=== PATIENT | female | born 1940 | race Two or more races ===

== ENCOUNTER 2019-04-22 15:01 | Inpatient (IN) | payer MEDICARE, OTHER ==
[2019-04-22] VITALS (22 sets, daily range): BP systolic 58–156; BP diastolic 22–99
[~2019-04-22] VITALS: Ht 170.2 cm; Wt 88.3 kg
[~2019-04-22 15:01] MED LIST: AMITR; AMLO2.5T7; BENA10TA9; CLONIDINE PUMP; DILAUDID PUMP; METO25TA36; MINO10TA2; NOR10T; OMEP20TA44; TRIA25CA
[2019-04-22] MEDS ORDERED: SUCCINYLCHOLINE CHLORIDE 20 MG/ML 10ML VIAL IV ONE ×2 (15:50→16:00)
[2019-04-22] MEDS ORDERED: ETOMIDATE (2MG/ML) 20ML VIAL IV ONE ×2 (15:50→16:00)
[2019-04-22] MEDS ORDERED: SODIUM CHLORIDE 0.9% 1,000 ML IV ONE (15:54)
[2019-04-22] MEDS ORDERED: MIDAZOLAM DRIP 50 mg/50mL 50 ML IV ONE (15:55)
[2019-04-22] MEDS ORDERED: AMIODARONE HCL 900 MG in DEXTROSE 500 ML IV SCH (15:59)
[2019-04-22] MEDS: MIDAZOLAM DRIP 50 mg/50mL 50 ML IV SCH ×2 (15:59→23:02)
[2019-04-22] MEDS ORDERED: AMIODARONE HCL 150 MG in D5W 5% 100 ML IV ONE (16:00)
[2019-04-22] MEDS ORDERED: OCTREOTIDE ACETATE 100 MCG in SODIUM CHL 0.9% 50 ML IV ONE (16:00)
[2019-04-22] MEDS ORDERED: PANTOPRAZOLE 80 MG in SODIUM CHL 0.9% 60 ML IV ONE (16:00)
[2019-04-22] MEDS ORDERED: NOREPINEPHRINE 8 MG/250ML KIT 250 ML IV ONE (16:14)
[2019-04-22] MEDS ORDERED: cefTRIAXone 1GM/50ML D5W 50 ML IV ONE ×2 (16:15→16:30)
[2019-04-22] MEDS: NOREPINEPHRINE 8 MG/250ML KIT 250 ML IV SCH (16:17)
[2019-04-22 16:33] LABS: Basophils # (auto) 0.1 uL; Basophils % (auto) 0.4 % (0.0-2.0); Eosinophils # (auto) 0 uL; Hematocrit 34.2 % (36.0-46.0); Hemoglobin 10.9 g/dL (12.2-16.2); Lymphocytes # (auto) 1.3 uL; Lymphocytes % (auto) 6.5 % (10.0-50.0); Mean Corpuscular Hemoglobin 28.4 pg (28.0-32.0); Mean Corpuscular Hgb Conc. 31.8 g/dL (32.0-36.0); Mean Corpuscular Volume 89.5 fL (80.0-100.0); Monocytes # (auto) 0.8 uL; Monocytes % (auto) 4.3 % (0.0-12.0); Neutrophils % (auto) 88.8 % (37.0-80.0); Platelet Count (auto) 382 10^3/uL (140-450); Red Blood Cells 3.82 10^6/uL (4.0-5.20); Red Cell Distribution Width 16.3 % (11.8-14.3); White Blood Cell 19.1 10^3/uL (4.4-10.8)
[2019-04-22 16:51] LABS: Albumin 1.8 g/dL (3.4-5.0); Calcium 8.6 mg/dL (8.5-10.1); Magnesium 1.7 mg/dL (1.6-2.6); Potassium 4.3 mmol/L (3.5-5.1)
[2019-04-22 16:53] LABS: INR 1.29 (0.9-1.15)
[2019-04-22 16:56] LABS: BUN/Creatinine Ratio 25.7; Bilirubin, Total 0.6 mg/dL (0.2-1.0)
[2019-04-22 17:55] LABS: Lactic Acid w/Reflex 2.1 mmol/L (0.4-2.0)
[2019-04-22] MEDS: OCTREOTIDE ACETATE 500 MCG in SODIUM CHL 0.9% 99 ML IV SCH (18:08)
--- NOTE | 2019-04-22 19:24 | NUR ---
RT Transport Note: PT TRANSPORTED TO [facility]IA [facility] WITHOUT INCIDENT, WITH RNS KAVYA AND PETE. RNS BO AND EYAD AT BEDSIDE TO RECEIVE PT. PLACED PT BACK ON VENT ON PREVIOUS ORDERED SETTINGS, AC14,500+5, 50% FIO2. RT NAME AND PAGER ASSIGNMENT WRITTEN ON PTS ROOM BOARD. WILL CONTINUE TO MONITOR. Addendum: 04/22/19 at 2024 by Nicolle Velazquez RT INCORRECT RN NAME ONE OF THE RNS NAME IS NOT BO. PLEASE DISREGARD THIS ERROR. CORRECT NAME FOR THIS RN IS MIKIE.
--- NOTE | 2019-04-22 19:35 | NUR ---
Admit to [facility] admitted to [facility] via gurney on school bus monitor, and portable 02. Patient transfered to bed, connected to unit monitoring and oxygen, and weighed by bedscale. Patient oriented to Gilbert Rose RN primary RN, unit, room, bed, and unit policies regarding patient care and visiting hours.
[2019-04-22 19:47] LABS: Urine Bacteria MANY /hpf (None Seen); Urine Blood Negative /uL (Negative); Urine Mucus FEW (None Seen); Urine Specific Gravity 1.017 (1.001-1.035); Urine WBC 37 /hpf (0 - 5)
--- NOTE | 2019-04-22 20:00 | NUR ---
NGT UNABLE TO VERIFY PLACEMENT. INSERTED OGT TO 80CM. WAS ABLE TO AUSCULTATE AND ASPIRATE GI CONTENTS. OGT WAS HOOKED UP TO LIS AND DRAINED 1000ML OF COFFEE GROUNDS GI CONTENTS
--- NOTE | 2019-04-22 20:14 | NUR ---
Respiratory note: AT BEDSIDE FOR ROUTINE VENT CHECK. AT 1906 PT WAS TITRATED TO 50%. AT THIS TIME PT WAS TITRATED TO 40% RN EYAD AND MIKIE AT BEDSIDE AND MADE AWARE OF CHANGE. NO OTHER CHANGES MADE AT THIS TIME.
--- NOTE | 2019-04-22 20:20 | NUR ---
WOUND DOCUMENTATION MULTIPLE WOUNDS FOUND ASSESSMENT. PHOTOS TAKEN WITH WOUND CARE PHOTO. PLACED WOUND CARE CONSULT. BARRIER CREAM AND OPTIFOAM DRESSINGS APPLIES TO PRESSURE AREAS. SCDS APPLIED.
[2019-04-22] MEDS: D5W/SOD CHL 0.45% 1,000 ML IV SCH (22:00)
--- NOTE | 2019-04-22 22:00 | NUR ---
PATIENT TRANSPORTED TO ICU FROM [facility] TRANSPORTED to ICU via gurney on personnel monitor, intubated and being bagged by Respiratory Therapist. Patient transfered to bed, connected to mechanical ventilator by therapist, FLAVIA at bedside. Patient connected to ICU monitoring, weighed by gem, oriented to Gilbert Rose RN primary RN, unit, ventilator and sedation.
[2019-04-22] MEDS: MEROPENEM 1GM IVPB 100 ML IV SCH (23:01)
[2019-04-22] MEDS: FAMOTIDINE (10MG/ML) 2ML VL IV SCH (23:02)
[2019-04-23] VITALS (93 sets, daily range): BP systolic 97–153; BP diastolic 47–101
[2019-04-23] MEDS: OCTREOTIDE ACETATE 500 MCG in SODIUM CHL 0.9% 99 ML IV SCH ×2 (02:10→09:49)
--- NOTE | 2019-04-23 03:00 | NUR ---
FULL BATH GIVEN COMPLETE BED BATH AND FULL LINENS CHANGED. SKIN REASSESSED. BARRIER CREAM APPLIED TO ABDOMINAL FOLDS AND UNDER BREASTS. PATIENT TOLERATED WELL. VITAL SIGNS STABLE.
[2019-04-23 04:34] LABS: Basophils # (auto) 0.1 uL; Basophils % (auto) 0.4 % (0.0-2.0); Eosinophils # (auto) 0 uL; Hematocrit 30.7 % (36.0-46.0); Hemoglobin 9.8 g/dL (12.2-16.2); Lymphocytes # (auto) 3.2 uL; Lymphocytes % (auto) 20.9 % (10.0-50.0); Mean Corpuscular Hemoglobin 28.5 pg (28.0-32.0); Mean Corpuscular Volume 89.1 fL (80.0-100.0); Monocytes # (auto) 0.9 uL; Monocytes % (auto) 5.7 % (0.0-12.0); Neutrophils # (auto) 11.1 uL; Nucleated Red Blood Cells % 0.1 %; Platelet Count (auto) 358 10^3/uL (140-450); Red Blood Cells 3.45 10^6/uL (4.0-5.20); Red Cell Distribution Width 16.3 % (11.8-14.3); White Blood Cell 15.3 10^3/uL (4.4-10.8)
[2019-04-23 04:53] LABS: Calcium 8.2 mg/dL (8.5-10.1)
[2019-04-23 04:55] LABS: BUN/Creatinine Ratio 23.7
[2019-04-23] MEDS: MEROPENEM 1GM IVPB 100 ML IV SCH ×3 (06:21→21:54)
[2019-04-23] MEDS ORDERED: FURO40TA4 PO (06:25)
[2019-04-23] MEDS ORDERED: BENA40TA83 PO (06:29)
[2019-04-23] MEDS ORDERED: CLOP75TA28 PO (06:29)
[2019-04-23] MEDS ORDERED: DIGO0.1262 PO (06:30)
[2019-04-23] MEDS: MIDAZOLAM DRIP 50 mg/50mL 50 ML IV SCH (06:43)
--- NOTE | 2019-04-23 07:22 | NUR ---
END OF SHIFT GAVE REPORT OF FULL CODE ICU PATIENT TO DAY SHIFT RN. ALL FALL AND SAFETY PRECAUTIONS IN PLACE. BED SET TO LOWEST POSITION.
--- NOTE | 2019-04-23 07:30 | NUR ---
ASSESS- PT. LYING IN BED ON VENT SIZE # 8.0 ET, 23 AT THE LIP, AC-14, TV-500, PEEP-5, FIO2-35%. PT. HAS GAG/COUGH REFLEX. LUNGS CLEAR AMANDA. INSPIRATORY AND EXPIRATORY, DIMINISHED BASES AMANDA. ON VERSED GTT. AT 6MG./HR. RESPONDS TO PAINFUL/TACTILE STIMULI. PUPILS 4 AND BRISK AMANDA. ABD. SOFT, LG. BOWEL SOUNDS ALL FOUR QUADRANTS. OGT TO LIS WITH BLACK DRAINAGE. F/C TO GRAVITY WITH CLOUDY DK. YELLOW URINE. RADIAL PULSES WEAK, PALPABLE AMANDA. DORSALIS PEDAL PULSES WEAK, PALPABLE AMANDA. HANDS AND FT. COOL TO TOUCH ALL EXT. WITH CAPILLARY REFILL > 3 SEC. ARMS SWOLLEN AMANDA. LT. GREATER THAN RT. ARM. 2 PLUS EDEMA LE AMANDA. AMIODARONE GTT. AT 0.5 MG./MIN. PT. IS IN A-FIB, HR 110'S-130'S WITH PVC'S. SBP ONE TEENS TO 120'S, OFF LEVOPHED GTT. MEDIAL BACK WITH DTI WITH OPTIFOAM DSG. D/I., MEDIAL BACK WITH DTI, OPEN WITH OPTIFOAM DSG. D/I. SACRUM WITH DTI WITH OPTIFOAM DSG. D/I. LT. POSTERIOR THIGH WITH SKIN TEAR WITH OPTIFOAM DSG. D/I. RT. CALF WITH DTI. LT. CALF WITH PRESSURE ULCER, OPEN TO AIR. RT. ANKLE WITH OPEN ULCER WITH OPTIFOAM DSG. D/I. RT. HEEL WITH OPEN ULCER WITH OPTIFOAM DSG. D/I. RT. GREAT TOE WITH BRUISE, OPEN TO AIR.
[2019-04-23] MEDS: AMIODARONE HCL 900 MG in DEXTROSE 500 ML IV SCH ×2 (08:00→09:50)
--- NOTE | 2019-04-23 08:33 | NUR ---
Respiratory note: LM FOR DR Shalini SHORE TO RETURN CALL FOR READ BACK OF CRITICAL ABG VALUES. RN MADE AWRE.
[2019-04-23] MEDS: D5W/SOD CHL 0.45% 1,000 ML IV SCH ×2 (08:48→12:00)
--- NOTE | 2019-04-23 09:30 | NUR ---
Family updated on pt status Family of [facility] updated on patient's status and condition. All questions and concerns addressed. SON verbalized understanding. VISITING AT THE BS.
[2019-04-23] MEDS: NOREPINEPHRINE 8 MG/250ML KIT 250 ML IV SCH (09:44)
--- NOTE | 2019-04-23 09:45 | NUR ---
Respiratory note: CALLED SECOND TIME AND LM FOR DR Shalini SHORE TO RETURN MY CALL REGARDING ABG RESULTS. RN MADE AWARE.
[2019-04-23] MEDS: FAMOTIDINE (10MG/ML) 2ML VL IV SCH ×2 (09:48→21:54)
[2019-04-23] MEDS ORDERED: LORA-622 PO (10:58)
[2019-04-23] MEDS ORDERED: PANT40TA2 PO (10:58)
[2019-04-23] MEDS ORDERED: APIX2.5T PO (10:58)
[2019-04-23] MEDS ORDERED: DONE10TA40 PO (10:58)
[2019-04-23] MEDS ORDERED: METO-159 PO (10:58)
[2019-04-23] MEDS ORDERED: FERR-20 PO (10:58)
[2019-04-23] MEDS ORDERED: CLON0.1T PO (10:58)
[2019-04-23] MEDS ORDERED: GABA300C10 PO (10:58)
[2019-04-23] MEDS ORDERED: POTA10TA51 PO (10:58)
--- NOTE | 2019-04-23 11:00 | NUR ---
SBP 100'S TO 120'S. PT. REMAINS OFF LEVOPHED GTT. A-FIB WITH HR 100'S TO 130'S WITH PVC'S AND COUPLETS.
--- NOTE | 2019-04-23 11:10 | NUR ---
Respiratory note: CALLED DR Tammy SHORE ON CELL PHONE. ORDER RECEIVED TO CPAP PT. RN MADE AWARE.
[2019-04-23] MEDS: PANTOPRAZOLE 80 MG in SODIUM CHL 0.9% 60 ML IV SCH ×2 (11:28→16:08)
--- NOTE | 2019-04-23 12:05 | NUR ---
Nutrition Assessment/consult Notes please see attached link for complete assessment Est. Needs ABW [id number] kcal (23-25 kcal/kgBW), 79-86 gms pro (1.0-1.1 gms/kgBW). Will continue to monitor pertinent labs and reassess nutrient need prn Addendum: 04/23/19 at [address] Amended: Links added.
--- NOTE | 2019-04-23 12:50 | NUR ---
VERSED GTT. TITRATED OFF FOR CPAP TRIAL TODAY PER DR. Tammy SHORE.
--- NOTE | 2019-04-23 14:30 | NUR ---
MANAGER TRANSITION AT FOR EVALUATION.
--- NOTE | 2019-04-23 15:20 | NUR ---
PT. REMAINS OFF SEDATION. PT. IS LETHARGIC, RESPONDS TO PAINFUL/TACTILE STIMULI ONLY AT THIS TIME. EYES REMAIN CLOSED. DOES NOT FOLLOW ANY COMMANDS. UNABLE TO DO CPAP AT THIS TIME.
--- NOTE | 2019-04-23 15:58 | NUR ---
WOUND CARE NOTE: Wound care consult received from nursing. Patient is a 78yo female admitted for respiratory failure, sepsis and afib with RVR. Patient with a history of afib, CHF, HTN, and pacemaker. Patient is currently intubated and sedated. Patient with no signs or symptoms of pain. Last Yasir score is 11. Patient seen with bedside RNPatsy. Patient was previously on hospice service prior to this admission. Patient noted with multiple pressure injuries on admission. Patient with a DTI to upper back, unstageable pressure injuries to mid back, left sacrum and right heel, stage 2 (intact blister) to left posterior calf and stage 1 to right ankle. See assessment for measurements. RECOMMENDATIONS: Dietary consult; Turn q2hrs; Nursing to cleanse wounds to upper back, mid back, and left sacrum with wound cleanser or normal saline, pat dry, apply THERAHONEY and cover with OPTIFOAM GENTLE dressings, change every other day and PRN; Nursing to cleanse right heel wound, left calf wound and right ankle wound with wound cleanser, pat dry, may leave open to air or cover with OPTIFOAM GENTLE, change every three days and PRN; wound care team to follow. Addendum: 04/23/19 at 1620 by CHANTELLE HESS RN Amended: Links added.
--- NOTE | 2019-04-23 16:40 | NUR ---
VISITING AT THE BS.
--- NOTE | 2019-04-23 16:57 | NUR ---
DR. Tammy SHORE Provider/Hospitalist at bedside. GAVE UPDATE ON PT. NEW ORDERS RECEIVED.
--- NOTE | 2019-04-23 17:50 | NUR ---
TECH AT THE BS FOR US LT. ARM AND US RT. KNEE AREA.
--- NOTE | 2019-04-23 19:35 | NUR ---
OPEN SHIFT RECEIVED REPORT OF FULL CODE ICU PATIENT FROM DAY SHIFT RN. PATIENT INTUBATED BUT NOT SEDATED AT THIS TIME. NOTICEABLE FACIAL GRIMACE AND WITHDRAW TO PAIN WITH HEART RATE IN THE 140'S. PLAN TO ADMINISTER DEMEROL IVP AND REPOSITION FOR COMFORT. STARTED PATIENT ON VERSED SEDATION 1MG/HR FOR COMFORT. FOR GTTS'S AND THEIR TITRATIONS SEE IV SPREAD SHEET. SALAS CATHETER DRAINING MILKY YELLOW URINE TO GRAVITY, FREE OF KINKS AND HUNG BELOW BLADDER. SCD'S ON PATIENT. OGT TO LIS DRAINING COFFEE GROUNDS. AUSCULTATED AND ASPIRATED OGT FOR CORRECT PLACEMENT. MULTIPLE WOUNDS ON PATIENT WITH DRESSING CLEAN DRY AND INTACT. FOR MORE INFORMATION SEE PHYSICAL ASSESSMENT. BED LOCKED AND SET TO LOWEST POSITION WITH HOB>30. ALL FALL AND SAFETY PRECAUTIONS IN PLACE.
--- NOTE | 2019-04-23 19:36 | NUR ---
pulmonary consult called [id number]
[2019-04-23] MEDS: MEPERIDINE HCL (25 MG/ML) 1ML VIAL IV PRN (19:37)
--- NOTE | 2019-04-23 19:37 | NUR ---
GI CONSULT CALL [phone]
--- NOTE | 2019-04-23 19:37 | NUR ---
NEPHRO CONSULT CALLED [id number]
--- NOTE | 2019-04-23 20:20 | NUR ---
Yana SHORE AT BEDSIDE UPDATED ON PATIENT STATUS. NEW ORDER OF MONITORING CVP AND ONE DOSE OF 5% ALBUMIN 500ML.
[2019-04-23] MEDS ORDERED: ALBUMIN 5% 250 ML IV ONE ×4 (20:30→21:15)
--- NOTE | 2019-04-23 20:59 | NUR ---
LUBA SHORE REGARDING ELEVATED HR. INFORMED ABOUT UNCONTROLLED HEART RATE, URINE OUTPUT AND NEPHROLOGY SUGGESTIONS. RECEIVED ORDER FOR 5% ALBUMIN 500ML AND IVP 0.25MCG DIGOXIN ONCE. TORB.
--- NOTE | 2019-04-23 21:13 | NUR ---
LUBA SHORE MD WANTED CALL BACK AFTER ALBUMIN AND CVP MONITORING. LEFT VOICE MAIL WITH ANSWERING SERVICE. AWAITING CALL BACK.
[2019-04-23] MEDS ORDERED: DIGOXIN (250MCG/ML) 2 ML AMPULE IV ONE (21:15)
--- NOTE | 2019-04-23 22:50 | NUR ---
RECEIVED CALL BACK FROM Suzie SHORE UPDATED ON PATIENT STATUS. NO NEW ORDERS RECEIVED.
[2019-04-24] VITALS (98 sets, daily range): BP systolic 109–170; BP diastolic 60–110
--- NOTE | 2019-04-24 | NUR ---
FULL BATH GIVEN SPECIALTY BED PLACED COMPLETE BED BATH AND FULL LINENS CHANGED. SKIN REASSESSED. BARRIER CREAM APPLIED TO ABDOMINAL FOLDS AND UNDER BREASTS. PATIENT PLACED ON HILL-ROM SPECIALTY BED. PATIENT TOLERATED WELL. VITAL SIGNS STABLE.
[2019-04-24] MEDS: OCTREOTIDE ACETATE 500 MCG in SODIUM CHL 0.9% 99 ML IV SCH (00:40)
--- NOTE | 2019-04-24 01:00 | NUR ---
REPOSITIONED TO BACK. NO INCONTINENCE. CALL PLACED TO DR ECKERT. HIS RETURN CALL : GAVE ME PERMISSION TO USE THE PROPOFOL. RESULT WAS A DECREASE IN HR, SBP AND RR. ATRIAL FIB RATE AROUND 105-110. ALL PULSES ARE WEAK. SEVERAL TUBING CHANGES.
[2019-04-24] MEDS: MEPERIDINE HCL (25 MG/ML) 1ML VIAL IV PRN (02:08)
[2019-04-24] MEDS: MIDAZOLAM DRIP 50 mg/50mL 50 ML IV SCH ×2 (03:47→13:34)
[2019-04-24 04:50] LABS: Basophils # (auto) 0 uL; Basophils % (auto) 0.2 % (0.0-2.0); Eosinophils # (auto) 0 uL; Eosinophils % (auto) 0.1 % (0.0-7.0); Monocytes # (auto) 0.8 uL; Neutrophils # (auto) 12.2 uL; Red Cell Distribution Width 15.9 % (11.8-14.3)
[2019-04-24 04:54] LABS: Hematocrit 23.9 % (36.0-46.0); Hemoglobin 7.8 g/dL (12.2-16.2); Lymphocytes # (auto) 1.6 uL; Mean Corpuscular Hemoglobin 29.2 pg (28.0-32.0); Mean Corpuscular Hgb Conc. 32.8 g/dL (32.0-36.0); Monocytes % (auto) 5.4 % (0.0-12.0); Neutrophils % (auto) 83.3 % (37.0-80.0); Platelet Count (auto) 261 10^3/uL (140-450); Red Blood Cells 2.69 10^6/uL (4.0-5.20); White Blood Cell 14.6 10^3/uL (4.4-10.8)
--- NOTE | 2019-04-24 04:55 | NUR ---
PLACED PAGE FOR MD Shalini SHORE LEFT MESSAGE WITH KAYLEE AT EXCHANGE. REGARDING HTN.
[2019-04-24 05:08] LABS: BUN/Creatinine Ratio 23.9; Potassium 3.5 mmol/L (3.5-5.1)
[2019-04-24] MEDS: PANTOPRAZOLE 80 MG in SODIUM CHL 0.9% 60 ML IV SCH (05:20)
--- NOTE | 2019-04-24 05:30 | NUR ---
FAMILY CALLED SON ALLISON CALLED FOR AN UPDATE. AFTER RECEIVING CORRECT PASSWORD UPDATED SON ABOUT PATIENT STATUS.
[2019-04-24] MEDS: MEROPENEM 1GM IVPB 100 ML IV SCH ×3 (06:00→21:04)
--- NOTE | 2019-04-24 07:00 | NUR ---
END OF SHIFT GAVE REPORT OF FULL CODE ICU PATIENT TO DAY SHIFT RN. ALL FALL AND SAFETY PRECAUTIONS IN PLACE. BED SET TO LOWEST POSITION. ALL VITALS STABLE.
--- NOTE | 2019-04-24 07:30 | NUR ---
ASSESS- PT. LYING IN BED ON VENT SIZE # 8.0 ET, 23 AT THE LIP, AC-14, TV-500, PEEP-5, FIO2-30%. LUNGS CLEAR AMANDA. INSPIRATORY AND EXPIRATORY, DIMINISHED BASES AMANDA. PT. HAS GAG/COUGH REFLEX. RESPONDS TO PAINFUL/TACTILE STIMULI. VERSED GTT. AT 6MG./HR. DOES NOT FOLLOW ANY COMMANDS. SEEN PT. MOVE RT. HAND SOME. OGT IN PLACE TO LIS WITH BROWN DRAINAGE IN TUBING. ABD. SOFT, LG. BOWEL SOUNDS ALL FOUR QUADRANTS. F/C TO GRAVITY WITH LT. SHAW CLOUDY URINE. TLC RT. IJ INTACT WITH CVP TO DISTAL PORT, ZEROED, READING 7. AMIODARONE GTT. AT 0.5 MG./MIN. A-FIB, HR 70'S-80'S. PT. IS ON [facility] AIR BED. MEDIAL BACK WITH DTI WITH OPTIFOAM DSG. D/I., MEDIAL BACK WITH OPEN DTI WITH OPTIFOAM DSG. D/I., LT. POSTERIOR THIGH WITH SKIN TEAR WITH OPTIFOAM DSG. D/I, LT. CALF WITH OPEN WOUND WITH OPTIFOAM DSG. D/I., RT. CALF WITH DTI OPEN TO AIR, RT. HEEL WITH OPEN ULCER WITH OPTIFOAM DSG. D/I., RT. ANKLE WITH OPEN ULCER WITH OPTIFOAM DSG. D/I.
--- NOTE | 2019-04-24 09:35 | NUR ---
DR. COYLE Provider/Hospitalist at bedside. GAVE UPDATE ON PT. NEW ORDERS RECEIVED.
--- NOTE | 2019-04-24 10:00 | NUR ---
DR. ECKERT Provider/Hospitalist at bedside. GAVE UPDATE ON PT. NEW ORDERS RECEIVED.
[2019-04-24] MEDS: NOREPINEPHRINE 8 MG/250ML KIT 250 ML IV SCH (10:16)
--- NOTE | 2019-04-24 10:30 | NUR ---
Family updated on pt status Family of KE [facility] updated on patient's status and condition. All questions and concerns addressed. verbalized understanding. VISITING AT THE BS.
--- NOTE | 2019-04-24 11:15 | NUR ---
DR. Tammy SHORE Provider/Hospitalist at bedside. GAVE UPDATE ON PT. SPOKE WITH PT'S. AT THE BS.
--- NOTE | 2019-04-24 11:20 | NUR ---
VENT CHANGES MADE AT THIS TIME PER DR ECKERT. PT IS NOW ON AC RR 12, VT400, PEEP5, 30% FIO2. PT TOLERATING CHANGE WELL. KATI AKBAR.
--- NOTE | 2019-04-24 12:40 | NUR ---
MICROBIOLOGY CALLED AND PT. HAS VRE IN THE URINE FROM CULTURE. PLACED PT. ON CONTACT ISOLATION. INFORMED AT THE BS. WILL CALL DR. SHORE AND INFORM HIM.
--- NOTE | 2019-04-24 13:07 | NUR ---
Called/paged Dr. QUAN called re: . SPOKE WITH DR. SHORE ON HIS CELL PHONE. GAVE SENSITIVITY REPORT. NEW ORDER RECEIVED FOR DAPTOMYCIN PER PHARMACY PROTOCOL. Continue care.
[2019-04-24] MEDS: D5W/SOD CHL 0.45% 1,000 ML IV SCH (13:34)
[2019-04-24] MEDS: AMIODARONE HCL 900 MG in DEXTROSE 500 ML IV SCH (14:21)
--- NOTE | 2019-04-24 14:30 | NUR ---
FAMILY VISITING AT THE .
--- NOTE | 2019-04-24 16:30 | NUR ---
PT. RESTING ON VENT WITH EYES CLOSED, SEDATED. FAMILY HAS BEEN VISITING AT THE BS. NO SIGNS OF DISTRESS OR DISCOMFORT.
[2019-04-24] MEDS: DAPTOmycin 300 MG in SODIUM CHL 0.9% 50 ML IV SCH (16:47)
--- NOTE | 2019-04-24 19:13 | NUR ---
DR. Yana SHORE CALLED. GAVE UPDATE ON PT. NEW ORDERS RECEIVED.
[2019-04-24] MEDS ORDERED: TPN PER PHARMACY 0 ML IV SCH (19:15)
--- NOTE | 2019-04-24 19:30 | NUR ---
Initial Assessment Patient received laying on bed on mechanical ventilation and sedation with no s/s of distress or pain noted. HOB elevated greater than 30 degrees. ETT secured with [place], Ambu bag at bedside, oral care and suction rendered. Ventilator plugged into red outlet. PERRL intact and brisk. Positive cough/gag noted. RIJ central line intact and patent with no s/s of infiltration or phlebitis noted. Patient sedated with Versed at -3 RASS. OGT connected to LIS draining small amount of brown drainage. RN verified proper placement via auscultation with air bolus. Abd soft and large. Generalized pitting edema throughout entire body noted. F/C intact and draining to gravity. Multiple skin issues noted-wound care being performed per orders. All dressings are CDI. Neurovascular status is intact with palpable distal pulses x4 extremities, skin warm to touch, capillary refill brisk. Bed in lowest position, side rails up, bed brakes set, bed alarm set, all vitals stable, all alarms audible, in direct view of nurses station. Continue close monitoring.
[2019-04-24] MEDS ORDERED: DEXTROSE 10% 1,000 ML IV SCH (20:00)
[2019-04-24] MEDS: PANTOPRAZOLE 40 MG/10 ML VIAL INJ IV SCH (21:04)
[2019-04-25] VITALS (74 sets, daily range): BP systolic 100–178; BP diastolic 56–100
[2019-04-25] MEDS: MEPERIDINE HCL (25 MG/ML) 1ML VIAL IV PRN ×2 (00:45→12:45)
--- NOTE | 2019-04-25 01:30 | NUR ---
Ongoing Assessment Pain medication was given to patient at 0045 due to patient showing s/s of pain including increasing BP and facial grimacing. Patient appears much more comfortable post Demerol injection. Patient continues to be turned, all bony prominences and heels offloaded with pillows, skin is being kept clean and dry. HOB elevated. Neurovascular status remains intact and unchanged. Central line remains free of any s/s of infiltration or phlebitis. All vitals are stable. Continue close monitoring.
--- NOTE | 2019-04-25 03:30 | NUR ---
Hygiene partial CHG bed bath given, all linens and gowns changed. Barrier cream re-applied to skin folds and zarina-area. Patient tolerated well.
[2019-04-25] MEDS: D5W/SOD CHL 0.45% 1,000 ML IV SCH ×3 (03:42→20:00)
[2019-04-25 03:50] LABS: Basophils # (auto) 0 uL; Basophils % (auto) 0.3 % (0.0-2.0); Eosinophils # (auto) 0.1 uL; Eosinophils % (auto) 0.8 % (0.0-7.0); Hematocrit 27.4 % (36.0-46.0); Hemoglobin 8.9 g/dL (12.2-16.2); Lymphocytes # (auto) 2.3 uL; Mean Corpuscular Hgb Conc. 32.6 g/dL (32.0-36.0); Mean Corpuscular Volume 89.1 fL (80.0-100.0); Monocytes # (auto) 0.8 uL; Monocytes % (auto) 5.9 % (0.0-12.0); Neutrophils # (auto) 10.9 uL; Nucleated Red Blood Cells % 0.1 %; Platelet Count (auto) 266 10^3/uL (140-450); Red Blood Cells 3.08 10^6/uL (4.0-5.20); Red Cell Distribution Width 16.1 % (11.8-14.3); White Blood Cell 14.2 10^3/uL (4.4-10.8)
--- NOTE | 2019-04-25 04:00 | NUR ---
Report given to KATI Sadler.
[2019-04-25 04:09] LABS: Calcium 7.6 mg/dL (8.5-10.1); Potassium 3.1 mmol/L (3.5-5.1)
[2019-04-25 04:12] LABS: BUN/Creatinine Ratio 23.9
[2019-04-25 05:01] LABS: Magnesium 1.4 mg/dL (1.6-2.6)
[2019-04-25 05:05] LABS: Phosphorus 2.3 mg/dL (2.5-4.90); Pre Albumin 4.2 mg/dL (20.0-40.0)
[2019-04-25] MEDS: MEROPENEM 1GM IVPB 100 ML IV SCH ×3 (06:00→22:22)
--- NOTE | 2019-04-25 06:10 | NUR ---
Respiratory note: RECEIVED PATIENT ON V6 V200 VENT ORALLY INTUBATED WITH AN 8.0 ETT SECURED VIA MARIBELL AT THE 23CM MARKING AT THE LIP, AND MECHANICALLY VENTILATED WITH THE CHARTED SETTINGS. SPO2 98%, LUNG SOUNDS CLEAR/DIM T/O, NO SECRETIONS WHEN SUCTIONED. SKIN IS WARM/DRY TO THE TOUCH AND IS INTACT NEAR MARIBELL SITE. THERE IS AN OGT IN PLACE AND SECURED TO THE ETT, A TRIPLE LUMEN CENTRAL LINE IS PLACED IN THE RIGHT IJ, PITTING EDEMA NOTED IN BILATERAL UPPER AND LOWER EXTREMITIES. NO NEW AM CXR TO ASSESS. PATIENT IS UNRESPONSIVE TO BOTH VERBAL/TACTILE STIMULI AND IS SEDATED ON A VERSED DRIP, SHE IS RESTING COMFORTABLY AND TOLERATING VENT WELL. VENT PLUGGED INTO RED OUTLET AND ALL ALARMS ARE SET AND AUDIBLE. WILL CONTINUE TO ASSESS PATIENT WELL VENTILATOR FUNCTION.
--- NOTE | 2019-04-25 08:40 | NUR ---
AT BEDSIDE: Dr. Tammy Hong at bedside. No new orders at this time.
--- NOTE | 2019-04-25 09:00 | NUR ---
AT BEDSIDE; Dr. Luque at bedside, states that he will coordinate with the GI doctor to plan for CPAP trial.
--- NOTE | 2019-04-25 09:30 | NUR ---
AT BEDSIDE: Dr. Myers at bedside. Discussed possibility of small bowel obstruction, states to intermittently set OGT to LIS. Informed him that OGT was set to LIS upon arrival on shift with small amount of dark brown fluid draining. States he will repeat abd X-ray tomorrow. Informed Dr. Myers that Dr. Luque would like to coordinate care with him to facilitate ventilator weaning.
[2019-04-25] MEDS ORDERED: POTASSIUM PHOSPHATE 22 MEQ in SODIUM CHL 0.9% 100 ML IV ONE (10:00)
[2019-04-25] MEDS: PANTOPRAZOLE 40 MG/10 ML VIAL INJ IV SCH ×2 (10:00→21:00)
--- NOTE | 2019-04-25 10:15 | NUR ---
FAMILY; Patient's at bedside. Updated him on patient condition, informed him that patient has been stable. Discussed with him that the plan is to attempt ventilator weaning when patient is cleared by the GI physician. Informed him that the GI physician is planning to repeat an abdominal X-ray tomorrow. verbalized understanding.
[2019-04-25] MEDS: MAGNESIUM SULFATE 1GM/100ML 100 ML IV SCH ×2 (10:58→12:38)
[2019-04-25] MEDS: PROPOFOL 100 ML IV SCH (11:44)
--- NOTE | 2019-04-25 11:55 | NUR ---
Nutrition Consult and Follow-up Notes Wt.: 97.0 kg today. Pt's in isolation room, intubated, sedated, no immediate family member at bedside during rounds earlier. Pt's currently NPO, noted to start tonight on TPN @ 48 m/hr to provide 1190 kcal, 60 gms pro, 950 NPCs and 8% Fat with active Wound, Pulmonary and GI consults. Est. Needs ABW [id number] kcal (23-25 kcal/kgBW), 79-111 gms pro (1.0-1.4 gms/kgBW reassessed d/t severe hypoalbuminemia). Will continue to monitor pertinent labs and reassess nutrient need prn Labs: Gluc 123 H, Ca 7.6 L, K 3.1 L, Phos 2.63 L, Mg 1.4 L, Tpro 6.1 L, Alb 1.8 L, Prealb 4.2 L, Trig 152 H. Skin: Yasir scale 11 high risk, pt's multiple pressure area/wounds per straddle bug operator. Pls refer to latest optics test technician's notes for further details re: tx plans. GI: Pt's no bowel activity since 04/22/19 per straddle bug operator. PES: Increased nutrient needs r/t current medical condition aeb intubated sedated with order of NPO Altered nutrition related lab values r/t current/chronic medical condition aeb hyperglycemia, hyponatremia, hypokalemia, hyperchloremia, elev. BUN, Trop I, HbA1c, LFTs, hyperbilirubinemia, hypocalcemia and mod hypoalbuminemia Will continue to monitor NPO status, PN tolerance, pertinent labs, skin status and weight trends. F/u in 2 to 3 days. Additional Recommendation: 1.) If still NPO with PN support, consider gradual increase on calories and protein to meet at least 75% of est nutrient needs. 2.) Advance gradually to oral diet when medically appropriate. 3.) Refer to RD for further nutrition educ. and weight monitoring upon discharge. 4.) Continue current plan of care. Thank you for this consult.
[2019-04-25] MEDS: NOREPINEPHRINE 8 MG/250ML KIT 250 ML IV SCH (15:51)
[2019-04-25] MEDS: MIDAZOLAM DRIP 50 mg/50mL 50 ML IV SCH (15:51)
[2019-04-25] MEDS: DAPTOmycin 300 MG in SODIUM CHL 0.9% 50 ML IV SCH (17:51)
[2019-04-25] MEDS ORDERED: TPN PER PHARMACY IV NR ×9 (20:00)
[2019-04-25] MEDS: InsuLIN REG 1unit/0.01ml Soln (100units/ml) SC SCH (20:00)
[2019-04-25] MEDS ORDERED: DEXTROSE (50%) 50ML SYRG IV SCH (20:00)
[2019-04-25] MEDS: AMIODARONE HCL 900 MG in DEXTROSE 500 ML IV SCH (20:00)
[2019-04-25] MEDS: ACCU-CHEK COMFORT CURVE STRIP VI SCH (20:00)
--- NOTE | 2019-04-25 20:00 | NUR ---
ADMITTED FROM HOME WITH DARK EMESIS AND STOOLS. OFFICIAL DIAGNOSIS RESPIRATORY FAILURE, SEPSIS, GI BLEED, FAILURE TO THRIVE. UA HAS MANY BACTERIA. CONTACT ISOLATION FOR VRE IN THE URINE. ATRIAL FIB IS THE UNDERLYING RHYTHM. OCCASIONAL PACED BEATS. OFF SEDATION. MOVING ARMS AND LEGS. OPENS EYES A LITTLE. DOES NOT FOLLOW COMMAND. ORAL INTUBATION. ORAL OGT TO LIS. CLEAR ORAL SECRETIONS. SMALL AMOUNT OF CLOUDY SECRETIONS SUCTIONED FROM THE ETT. LUNGS CLEAR THROUGHOUT. ABDOMEN SOFT. NO BM. SALAS IN PLACE. CLEAR YELLOW LIQUID TO DOWN DRAIN BAG. ALL PULSES PALPABLE. RIJ TLC WITH A MAINTENANCE FLUID, AMIODARONE, AND TPN. TPN JUST STARTED TONIGHT.
--- NOTE | 2019-04-25 22:00 | NUR ---
REPOSITIONED. ATRIAL FIB. ORAL CARE. CLEAR YELLOW LIQUID TO DOWN DRAIN BAG.
--- NOTE | 2019-04-25 22:00 | NUR ---
REPOSITIONED. ORAL CARE. ETT SUCTIONED FOR WHITE SECRETIONS. LUNGS CLEAR. ATRIAL FIB WITH PACED BEATS.
--- NOTE | 2019-04-25 23:55 | NUR ---
AWAKE. MOVING ARMS AND LEGS. CREAMY SECRETIONS FROM THE ETT. CLEAR ORAL SECRETIONS. RIJ TLC SITE CLEAN AND DRY. HAS A FEW AREAS ON HER RIGHT FOREARM THAT ARE LEAKING SEROSANGUINOUS FLUID. RIGHT HEEL IS SCABBED, DRY. HEELS OFF BED. ATRIAL FIB IS THE BASE RHYTHM. OCCASIONAL PACED BEATS.
[2019-04-26] VITALS (95 sets, daily range): BP systolic 107–188; BP diastolic 37–101
--- NOTE | 2019-04-26 | NUR ---
WILL OPEN EYES. MOVES ARMS FREQUENTLY. GRIMACES TO PAINFUL STIMULI. DOES NOT FOLLOW COMMANDS.
--- NOTE | 2019-04-26 02:00 | NUR ---
VSS. NO CHANGE IN VENTILATOR SETTINGS. CONTINUES TO WAKE UP EASILY. OFTEN JUST MOVES HER ARMS. ATRIAL FIB IS THE BASELINE RHYTHM. VENTRICULAR PACING OCCASIONALLY. URINE IS CLEAR YELLOW.
--- NOTE | 2019-04-26 03:13 | NUR ---
AM LABS DONE
--- NOTE | 2019-04-26 04:00 | NUR ---
CHG BATH. COMPLETE LINEN CHANGE
[2019-04-26 04:45] LABS: Albumin 1.8 g/dL (3.4-5.0); Calcium 7.4 mg/dL (8.5-10.1); Magnesium 1.7 mg/dL (1.6-2.6)
[2019-04-26 04:47] LABS: BUN/Creatinine Ratio 24.5
[2019-04-26 04:50] LABS: Bilirubin, Total 0.5 mg/dL (0.2-1.0)
[2019-04-26] MEDS: MEROPENEM 1GM IVPB 100 ML IV SCH ×3 (05:29→21:43)
[2019-04-26] MEDS: InsuLIN REG 1unit/0.01ml Soln (100units/ml) SC SCH ×4 (05:30→18:00)
[2019-04-26] MEDS: ACCU-CHEK COMFORT CURVE STRIP VI SCH ×4 (05:30→18:10)
[2019-04-26 05:39] LABS: Phosphorus 1.9 mg/dL (2.5-4.90)
--- NOTE | 2019-04-26 06:00 | NUR ---
OOZING FROM SOME SMALL AMOUNTS OF SEROSANGUINOUS FLUID FROM A FEW SMALL OPEN SITES ON THE RIGHT FOREARM. LARGE FOAM DRESSING APPLIED TO KEEP HER FROM RUBBING HER ARM BACK AND FORTH IN THAT AREA,
--- NOTE | 2019-04-26 07:30 | NUR ---
REPORT REPORT RECEIVED FROM LIZZIE RNJOHNY. IN TO ROOM FOR BEDSIDE CHECK. OLPEZ FELTING MACHINE OPERATOR HELPER RN, AT THE BEDSIDE CHECKING ON PT PRIOR TO PT GOING TO FELTING MACHINE OPERATOR HELPER. INFORMED HER THAT PT HAS NOT YET BEEN SEEN BY INNER TUBE TUBER MACHINE OPERATOR AND NO ORDER HEART CATH. SHE WILL CONTACT DR SHOOK AND ASK HIM TO PLACE THE ORDER OR CONTACT US. Addendum: 04/26/19 at 0920 by Luna Rojas RN ERROR: WRONG PATIENT
--- NOTE | 2019-04-26 07:37 | NUR ---
LIZZIE TERRELL RN, CONTACTED PT'S SON AND VERIFIED CONSENT FOR LEFT HEART CATH. LET HIM KNOW THAT THE PROCEDURE LIKELY FOR 899. HE STATES HE IS COMING OVER RIGHT NOW. Addendum: 04/26/19 at 921 by Luna Rojas RN ERROR WRONG PATIENT
--- NOTE | 2019-04-26 08:04 | NUR ---
pt teaching pt unable to benefit from pt teaching as she is too drowsy. Addendum: 04/26/19 at 2008 by Luna Rojas RN Amended: Links added.
--- NOTE | 2019-04-26 08:04 | NUR ---
ASSESSMENT PT IN CONTACT ISOLATION FOR + VRE TO THE URINE. PT OFF SEDATION FOR POSSIBLE CPAP TRIAL TODAY. ON THE VENTILATOR WITH 8 FR ETT/22 AT THE LIP, TV 400, AC 12, 30% DFIO2 AND PEEP OF 5. LUNGS CLEAR THROUGHOUT. THICK CLEAR ORAL SECRETIONS. TELE ATRIAL FIB 96. PALPABLE PULSES TO ALL EXTREMITIES WITH SCD TO BLE. ABD SOFT WITH HYPOACTIVE BOWEL OSUNDS. OGT WITH + PLACEMENT AND THICK [place]ORD[place] FLUID DRAINING. SALAS CATHETER DRAINING CLEAR YELLOW URINE. +2 PITTING EDEMA TO BUE. PT WITH IV MEDS TO TLC TO THE RIJ, SITE BENIGN.. PT WITH MULTIPLE ABRASIONS, AND AREAS OF SKIN BREAKDOWN . PLEASE SEE WOUND CARE ASSESSMENT. TURNED FOR COMFORT TO HER RIGHT SIDE. CONTINUE TO MONITOR.
[2019-04-26 08:19] LABS: Basophils # (auto) 0 uL; Basophils % (auto) 0.3 % (0.0-2.0); Eosinophils # (auto) 0.1 uL; Eosinophils % (auto) 0.4 % (0.0-7.0); Hemoglobin 9.3 g/dL (12.2-16.2); Lymphocytes # (auto) 2.4 uL; Lymphocytes % (auto) 14.7 % (10.0-50.0); Mean Corpuscular Hemoglobin 28.8 pg (28.0-32.0); Mean Corpuscular Hgb Conc. 33.1 g/dL (32.0-36.0); Mean Corpuscular Volume 87.2 fL (80.0-100.0); Monocytes % (auto) 5.9 % (0.0-12.0); Neutrophils # (auto) 13.1 uL; Neutrophils % (auto) 78.7 % (37.0-80.0); Platelet Count (auto) 278 10^3/uL (140-450); Red Blood Cells 3.21 10^6/uL (4.0-5.20); Red Cell Distribution Width 15.5 % (11.8-14.3); White Blood Cell 16.6 10^3/uL (4.4-10.8)
[2019-04-26] MEDS ORDERED: POTASSIUM PHOSPHATE 44 MEQ in SODIUM CHL 0.9% 250 ML IV ONE (08:30)
--- NOTE | 2019-04-26 09:00 | NUR ---
PT SEEN BY DR Shalini SHORE AND UPDATED ON PT'S CURRENT CONDITION AND LABS.
--- NOTE | 2019-04-26 09:00 | NUR ---
SEDATION VACATION PT NOT ON ANY SEDATION Addendum: 04/26/19 at 1253 by Luan Rojas RN Amended: Links added.
--- NOTE | 2019-04-26 09:12 | NUR ---
RETUNED DR ECKERT'S CALL AND UIPDATED HIM ON THE PT'S CURRENT CONDITION, ABD SERIES RESULTS AND ABG RESULTS. CHECK WITH DR COYLE REGARDING ABD SERIES RESULT AND SEE IF HE IS OK TO PROCEED WITH CPAP TRIAL.
--- NOTE | 2019-04-26 09:15 | NUR ---
ADVISED DR COYLE OF ABD SERIES RESULTS AND DOES NOT WANT TO PROCEED WITH CPAP TRIAL. CALLED AND NOTIFIED DR ECKERT OF THAT.
--- NOTE | 2019-04-26 09:43 | NUR ---
assessment Patient is a 78 year old female on a vent. Patients Willis is at bedside. Per Willis prior to admission patient lived home with him and functioned with [facility] hospice assistance and the assistance of their granddaughter Marilee. Per Willis he does not want to resume with [facility]. I informed Willis I would bring his a list of hospice medicare providers once patient is stable. Per Willis patient has a wheelchair, fww, and 02 for home use. Per Willis patient has an advanced directive and he is POA. I informed Willis we would discuss patients post discharge needs once extubated and prior to discharge. Willis verbalized understanding. Addendum: 04/27/19 at 0955 by Yuki KERN Amended: Links added.
[2019-04-26] MEDS ORDERED: MAGNESIUM SULFATE 1GM/100ML 100 ML IV ONE (10:00)
[2019-04-26] MEDS ORDERED: POTASSIUM CHL 20MEQ/100ML 100 ML IV SCH (10:15)
[2019-04-26] MEDS: PROPOFOL 100 ML IV SCH ×2 (10:31→22:05)
[2019-04-26] MEDS: PANTOPRAZOLE 40 MG/10 ML VIAL INJ IV SCH ×2 (11:31→20:17)
[2019-04-26] MEDS: D5W/SOD CHL 0.45% 1,000 ML IV SCH ×2 (12:40→19:56)
--- NOTE | 2019-04-26 13:00 | NUR ---
FAMILY AT THE BEDSDIE AND UPDATED ON THE PT'S CURRENT CONDITION AND POC.
[2019-04-26] MEDS: MIDAZOLAM DRIP 50 mg/50mL 50 ML IV SCH (15:55)
--- NOTE | 2019-04-26 16:00 | NUR ---
REPOSITIONED AND REASSESSED THE PATIENT.
[2019-04-26] MEDS: NOREPINEPHRINE 8 MG/250ML KIT 250 ML IV SCH (16:15)
--- NOTE | 2019-04-26 19:30 | NUR ---
REPORT REPORT GIVEN TO JOHNY SAMUEL RN
[2019-04-26] MEDS: AMIODARONE HCL 900 MG in DEXTROSE 500 ML IV SCH (19:56)
[2019-04-26] MEDS ORDERED: TPN PER PHARMACY IV NR ×21 (20:00)
--- NOTE | 2019-04-26 20:00 | NUR ---
ADMITTED WITH RESPIRATORY FAILURE, GI BLEED, SEPSIS, FAILURE TO THRIVE, ATRIAL FIB RVR. PLACED IN CONTACT ISOLATION FOR VRE IN URINE. CANCELLED CPAP TRIAL DUE TO HER ILEUS. OPENS EYES BRIEFLY. GRIMACES OCCASIONALLY WITH ORAL CARE. MOUTH IS OPEN CONTINUOUSLY. DENTAL CARIES. CLOUDY ORAL SECRETIONS. ORAL ETT TO VENTILATOR. SMALL AMOUNT OF THICK WHITE SECRETIONS. LUNGS CLEAR. ABDOMEN ROUND AND SOFT. OBESE. MULTIPLE SKIN ISSUES. 3+ PITTING EDEMA IN ARMS AND LEGS. SALAS IN PLACE DRAINING CLEAR YELLOW LIQUID. ALL EXTREMITIES ARE WARM. ALL PULSES PALPABLE. PEDAL PULSES ARE WEAK. STARTED ON DIPRIVAN TODAY. 2ND DAY OF TPN. AMIODARONE DRIP AT 0.5 CONTINUES. ATRIAL FIB CONTROLLED RATE IN THE 80S.
[2019-04-26] MEDS: DAPTOmycin 300 MG in SODIUM CHL 0.9% 50 ML IV SCH (20:34)
--- NOTE | 2019-04-26 22:00 | NUR ---
ORAL CARE . REPOSITIONED. LUNGS CLEAR. NEUROLOGICALLY THE SAME. NO CHANGE IN PITTING EDEMA. VERY SMALL AMOUNT OF NGT CONTENTS. FLUSHED NGT. NO BM.
[2019-04-27] VITALS (74 sets, daily range): BP systolic 111–186; BP diastolic 54–119
--- NOTE | 2019-04-27 | NUR ---
REPOSITIONED. ORAL CARE. ARMS UP ON PILLOWS. HEELS OFF BED. SALAS DRAINING CLEAR YELLOW LIQUID. ATRIAL FIB CONTROLLED RATE. SBP STABLE.
--- NOTE | 2019-04-27 02:00 | NUR ---
[facility] BATH
[2019-04-27 04:31] LABS: Basophils # (auto) 0.1 uL; Basophils % (auto) 0.4 % (0.0-2.0); Eosinophils # (auto) 0.1 uL; Eosinophils % (auto) 0.6 % (0.0-7.0); Hemoglobin 8.5 g/dL (12.2-16.2); Lymphocytes # (auto) 2.7 uL; Lymphocytes % (auto) 18.6 % (10.0-50.0); Mean Corpuscular Hemoglobin 28.4 pg (28.0-32.0); Mean Corpuscular Hgb Conc. 32.8 g/dL (32.0-36.0); Mean Corpuscular Volume 86.6 fL (80.0-100.0); Monocytes # (auto) 1.1 uL; Monocytes % (auto) 7.4 % (0.0-12.0); Neutrophils # (auto) 10.6 uL; Platelet Count (auto) 260 10^3/uL (140-450); Red Cell Distribution Width 15.6 % (11.8-14.3); White Blood Cell 14.5 10^3/uL (4.4-10.8)
--- NOTE | 2019-04-27 04:45 | NUR ---
INCONTINENT OF A LARGE PASTY DARK DARK GREEN STOOL. DALLAS CARE DONE. Z GUARD APPLIED
[2019-04-27 04:52] LABS: Albumin 1.6 g/dL (3.4-5.0); Calcium 7.2 mg/dL (8.5-10.1); Magnesium 1.7 mg/dL (1.6-2.6); Potassium 3.5 mmol/L (3.5-5.1)
[2019-04-27 04:55] LABS: BUN/Creatinine Ratio 36.4; Bilirubin, Total 0.4 mg/dL (0.2-1.0); Phosphorus 2.6 mg/dL (2.5-4.90); Total Protein 4.7 g/dL (6.4-8.2)
[2019-04-27] MEDS: ACCU-CHEK COMFORT CURVE STRIP VI SCH ×4 (05:43→17:59)
[2019-04-27] MEDS: D5W/SOD CHL 0.45% 1,000 ML IV SCH (05:43)
[2019-04-27] MEDS: MEROPENEM 1GM IVPB 100 ML IV SCH ×2 (05:43→14:05)
[2019-04-27] MEDS: InsuLIN REG 1unit/0.01ml Soln (100units/ml) SC SCH ×4 (06:00→18:12)
--- NOTE | 2019-04-27 07:30 | NUR ---
REPORT REPORT RECEIVED FROM LIZZIE RNJOHNY. BEDSIDE CHECK DONE. PT ON VENTILATOR , SEDATED AND WITH VSS.
--- NOTE | 2019-04-27 08:20 | NUR ---
ASSESSMENT PT LAYING IN BED WITH EYES CLOSED, BUT OPENS EYES TO NAME. DOES NOT FOLLOW ANY COMMANDS. ON THE VENTILATOR WITH 8 FR ETT/22 AT THE LIP, TV 400, 30% FIO2 , PEEP OF 5 AND AC 12. LUNGS WITH INSPIRATORY AND EXPIRATORY RHONCHI THROUGHOUT. TELE ATRIAL FIB, CONTROLLED RATE. PALPANLE PULSES TO ALL EXTREMITIES. + 2 PITTING EDEMA TO BOTH HANDS AND + 1 PITTING EDEMA TO BOTH ARMS. ABD SOFT WITH HYPOACTIVE BOWEL SOUNDS. OG TIN PLACE WITH LIGHT GOLD BILE FLUID DRAINING. SALAS CATHETER DRAINING CLOUDY YELLOW URINE. TURNED FOR COMFORT. MULTIPLE AREAS OF SKIN BREAKDOWN. SEE WOUND CARE ASSESSMENT. TLC TO THE RIJ, SITE BENIGN. ON CONTACT ISOLATION FOR + VRE IN THE URINE.
--- NOTE | 2019-04-27 08:30 | NUR ---
PT TEACHING PT UNABLE TO BENEFIT FROM PT TEACHING AT THIS TIME SHE IS SEDATED WHILE ON THE VENTILATOR Addendum: 04/27/19 at 1945 by Luna Rojas RN Amended: Links added.
[2019-04-27] MEDS ORDERED: EPINEPHrine HCL 1 MG/10 ML SYRG ONE (10:25)
[2019-04-27] MEDS: PANTOPRAZOLE 40 MG/10 ML VIAL INJ IV SCH ×2 (10:35→21:12)
--- NOTE | 2019-04-27 11:25 | NUR ---
DR COYLE AT BEDSIDE AND EGD IN PROGRESS. VSS. Addendum: 04/27/19 at 1136 by Luna Rojas RN ERROR: WRONG TIME
--- NOTE | 2019-04-27 11:37 | NUR ---
Nutrition Follow-up Notes Wt.: 94.0 kg Pt's in isolation room, intubated, sedated with propofol @ 5.82 ml.hr providing 153 kcals from fats with no immediate family member at bedside during rounds earlier. Pt's currently NPO, on TPN @ 60 m/hr to provide 1500 kcal, 70 gms pro, 1220 NPCs. pt with adequte PN support as it meets 83-88% kcals however meets 63-88% proteins with propofol on board Est. Needs ABW [id number] kcal (23-25 kcal/kgBW), 79-111 gms pro (1.0-1.4 gms/kgBW reassessed d/t severe hypoalbuminemia). Will continue to monitor pertinent labs and reassess nutrient need prn Labs: GLU 123 H, ALB 1.6 L, CA 7.2 L. Skin: Yasir scale 14, mod risk, pt's multiple pressure area/wounds per rn neurology. Pls refer to latest regional economist's notes for further details re: tx plans. GI: Pt's no bowel activity since 04/22/19 with 50 ml gastric drainage per rn neurology. PES: Increased nutrient needs r/t current medical condition aeb intubated sedated with order of NPO Altered nutrition related lab values r/t current/chronic medical condition aeb hyperglycemia, hyponatremia, hypokalemia, hyperchloremia, elev. BUN, Trop I, HbA1c, LFTs, hyperbilirubinemia, hypocalcemia and mod hypoalbuminemia Will continue to monitor NPO status, PN tolerance, pertinent labs, skin status and weight trends. F/u in 2 to 3 days. Additional Recommendation: 1.) If still NPO with PN support, consider gradual increase on calories and protein to meet at least 75% of est nutrient needs. 2.) Advance gradually to oral diet when medically appropriate. 3.) Refer to RD for further nutrition educ. and weight monitoring upon discharge. 4.) Continue current plan of care.
--- NOTE | 2019-04-27 11:40 | NUR ---
RESP/ NOTIFIED DR ECKERT, BY PHONE, OF PT'S INCREASED CONGESTION, BOTH INSPIRATORY AND EXPIRATORY RHONCHI THROUGHOUT. HE WILL BE OVER TO ASSESS BUT WANTS ME TO STOP HER IVF UNTIL HE ARRIVES.
--- NOTE | 2019-04-27 14:04 | NUR ---
NOTIFED OF URINE CULTURE + NOT ONLY FOR VRE BUT ALSO YEAST, NOT SOLE, ENTEROCOCCUS FAECIUM. AND KLEBSIELLA PNEUMONIAE. PAGED DR SHORE
--- NOTE | 2019-04-27 15:20 | NUR ---
REPAGED DR SHORE REGARDING URINE CULTURE RESULTS.
--- NOTE | 2019-04-27 15:25 | NUR ---
MD/RESPIRATORY SPOKE WITH DR ECKERT , BY PHONE, AND UPDATED HIM ON THE PT'S CURRENT CONDITION. HE SPOKE WITH DR COYLE WHO GAVE HIS OKAY FOR THE CPAP TRIAL. TURN OFF SEDATION , AND WHEN PT AWAKE AND ABLE TO FOLLOW SIMPLE COMMANDS, START CPAP TRIAL. ORDERED WITH PRESSURE SUPPORT OF 8 AND PEEP OF 5, WITH AN ABG AFTER ONE HOUR ON CPAP.
--- NOTE | 2019-04-27 15:35 | NUR ---
Respiratory note: CPAP orders given. Patient sedation being titrated. Patient seems to be responding more. Vital signs are increasing. Placed patient on CPAP with PS 8. work of breathing and respiratory rate increased to 40 and patient seemed to be in distress. Placed patient back on full support. will communicate with NOC RT.
[2019-04-27] MEDS: MIDAZOLAM DRIP 50 mg/50mL 50 ML IV SCH (15:55)
--- NOTE | 2019-04-27 16:00 | NUR ---
DR ECKERT HERE AND MADE AWRE OF URINE CULTURE RESULTS. HE IS SPEAKING WITH THE PHARMACIST REGARDING ANTIBIOTIC COVERAGE.
[2019-04-27] MEDS: NOREPINEPHRINE 8 MG/250ML KIT 250 ML IV SCH (16:15)
[2019-04-27] MEDS: fentaNYL Drip 2500mCg/250mlNS 250 ML IV SCH (16:30)
[2019-04-27] MEDS ORDERED: fentaNYL Drip 2500mCg/250mlNS 250 ML IV ONE (16:37)
[2019-04-27] MEDS ORDERED: POTASSIUM PHOSPHATE 22 MEQ in SODIUM CHL 0.9% 100 ML IV ONE (17:15)
[2019-04-27] MEDS: DAPTOmycin 500 MG in SODIUM CHL 0.9% 50 ML IV SCH (17:30)
[2019-04-27] MEDS: MAGNESIUM SULFATE 1GM/100ML 100 ML IV SCH ×2 (17:55→18:54)
--- NOTE | 2019-04-27 18:50 | NUR ---
PT RESTING IN BED WITH EYES CLOSED. OPENS EYES TO NAME AND FOLLOWS SIMPLE COMMANDS, CURRENTLY ON 85 MCG OF FENTANYL WITH VS: 115 -27-97% AND 164/87. DR ECKERT WANTS TO CPAP THE PT WHEN HR LESS THAN 100 AND RR DECREASED. CONTINUE TO MONITOR.
--- NOTE | 2019-04-27 19:30 | NUR ---
REPORT GIVEN TO JOHNY SAMUEL RN.
[2019-04-27] MEDS ORDERED: TPN PER PHARMACY IV NR ×10 (20:00)
--- NOTE | 2019-04-27 20:00 | NUR ---
ADMITTED ON 04/22/2019 WITH RESPIRATORY FAILURE, SEPSIS, GI BLEED, FAILURE TO THRIVE, HYPOTENSION, AFIB RVR. IN CONTACT ISOLATION FOR VRE URINE. URINE CULTURE SHOWED MORE BACTERIA TODAY. NEW ANTIBIOTIC ADDED. SEDATION: REMOVED PROPOFOL AND ADDED FENTANYL WITH A MAX OF 100. AT THE CHANGE OF SHIFT HER HEART RATE WAS ATRIAL FIB RATE 114-130. SBP 150-170. RR 24-30. INCREASED THE FENTANYL TO MAX PER DR ECKERT. THE PATIENT IS VERY AWAKE. BILATERAL MITTENS ON. MOVES ARMS BUT NOT LEGS. ORAL CARE DONE. OGT TO LIS. CANNISTER IS LARGELY FULL OF BROWN LIQUID. IN THE OGT IS A GREEN LIQUID. NO BOWEL SOUNDS. SALAS IN PLACE AND IS DRAINING AN ORANGE/SHAW LIQUID. 3+ PITTING EDEMA IN ARMS AND LEGS. IV ACCESS: RIJ TLC WITH CURRENT DRESSING AND BIOPATCH. MULTIPLE WOUNDS FROM BEFORE ADMISSION HERE. ACCUCHECK Q 6. TPN AT 70CC/HR TODAY.
--- NOTE | 2019-04-27 20:36 | NUR ---
HR 114-130 ATRIAL FIB. RR 27-30. FENTANYL MAX AT [address] ECKERT. CALL PLACED TO DR RAY WHO IS SERVICE ENGINEER FOR POSSIBLE ADDITION OF ANOTHER FORM OF SEDATION.
[2019-04-27] MEDS: MEPERIDINE HCL (25 MG/ML) 1ML VIAL IV PRN (21:19)
[2019-04-27] MEDS: AMIODARONE HCL 900 MG in DEXTROSE 500 ML IV SCH (21:41)
[2019-04-27] MEDS: SODIUM CHL 0.9% IV SCH (22:00)
[2019-04-27] MEDS: CEFTAZIDIME AVIBACTAM IV SCH (22:00)
--- NOTE | 2019-04-27 22:00 | NUR ---
DR ECKERT GAVE ME PERMISSION TO ADD THE PROPOFOL.
[2019-04-28] VITALS (82 sets, daily range): BP systolic 72–181; BP diastolic 37–100
--- NOTE | 2019-04-28 | NUR ---
REPOSITIONED TO LEFT SIDE. INCONTINENT OF A SMALL AMOUNT OF DARK BROWN/GREEN STOOL. DALLAS CARE DONE. UPPER SPINE DRESSING REMOVED. CLOSED DARK DTI WOUND. CLEANED AREA AND APPLIED 2X2 FOAM DRESSING. THE MID SPINE DRESSING WAS REMOVED. EXPOSED A DARK WOUND WITH A CRATER WOUND. CLEANED WOUND WITH WOUND CLEANSER AND APPLIED A THERAHONEY STRIP AND 2X2 FOAM DRESSING. THE LOWER HIP, COCCYX, AND BUTTOCK : 3 MACERATED AREAS. WOUNDS CLEANSED. Z GUARD APPLIED WITH A FOAM DRESSING TO COVER. RIGHT HEEL DRESSING : LARGE SCABBED WOUND. PATIENT GRIMACES WHEN YOU TURN HER. PAIN IS NOTED IN HER BACK AND KNEES. LUNGS COARSE. SUCTIONED A LARGE AMOUNT OF YELLOW/CREAMY SECRETIONS. ATRIAL FIB RATE REMAINS 102-106. ABDOMEN SOFT. PAIN PUMP AREA RIGHT LATERAL ABDOMEN. SALAS DRAINING AN SHAW LIQUID. NO CHANGE IN PERIPHERAL EDEMA. HEELS OFF BED. OGT DRAINING A DARK GREEN LIQUID.
--- NOTE | 2019-04-28 02:00 | NUR ---
REPOSITIONED. ATRIAL FIB RATE 92-106. ORAL CARE. STABLE.
[2019-04-28] MEDS: MEPERIDINE HCL (25 MG/ML) 1ML VIAL IV PRN ×3 (03:30→17:12)
[2019-04-28 04:44] LABS: Albumin 1.6 g/dL (3.4-5.0); BUN/Creatinine Ratio 53.3; Calcium 7.4 mg/dL (8.5-10.1); Magnesium 2.1 mg/dL (1.6-2.6)
[2019-04-28 04:47] LABS: Bilirubin, Total 0.4 mg/dL (0.2-1.0); Total Protein 4.7 g/dL (6.4-8.2)
[2019-04-28 05:02] LABS: Phosphorus 3.2 mg/dL (2.5-4.90)
[2019-04-28] MEDS: CEFTAZIDIME AVIBACTAM IV SCH ×3 (06:00→22:59)
[2019-04-28] MEDS: SODIUM CHL 0.9% IV SCH ×3 (06:00→22:59)
[2019-04-28] MEDS: ACCU-CHEK COMFORT CURVE STRIP VI SCH ×4 (06:00→18:12)
[2019-04-28] MEDS: InsuLIN REG 1unit/0.01ml Soln (100units/ml) SC SCH ×4 (06:00→18:00)
--- NOTE | 2019-04-28 06:30 | NUR ---
SON CALLED. AFTER THE DEMEROL PAIN MEDICATION, SHE RELAXED SO MUCH. HR WENT DOWN TO THE 70S. SBP DROPPED INTO THE 80S. RR14. SUCTIONING A SMALL AMOUNT OF CREAMY YELLOW SECRETIONS. ORAL CARE DONE. REPOSITIONED. ATRIAL FIBRILLATION CONTROLLED RATE IN THE 70S.
--- NOTE | 2019-04-28 09:10 | NUR ---
MD Dr. Myers at bedside updated on patient condition with new orders received, MD to input into system. Will continue to monitor patient closely.
--- NOTE | 2019-04-28 09:15 | NUR ---
PHARMACY Called and spoke to Bing regarding Protonix IV not in patient cassette, states " Will sent up a dose."
[2019-04-28 09:22] LABS: Hematocrit 23.8 % (36.0-46.0); Hemoglobin 7.9 g/dL (12.2-16.2)
[2019-04-28] MEDS: PANTOPRAZOLE 40 MG/10 ML VIAL INJ IV SCH ×2 (09:45→23:00)
[2019-04-28 10:20] LABS: Basophils # (auto) 0 uL; Eosinophils # (auto) 0.1 uL; Hemoglobin 7.9 g/dL (12.2-16.2); Lymphocytes # (auto) 2.9 uL; Red Cell Distribution Width 16.5 % (11.8-14.3)
[2019-04-28 10:23] LABS: Basophils % (auto) 0.3 % (0.0-2.0); Eosinophils % (auto) 0.5 % (0.0-7.0); Hematocrit 24.3 % (36.0-46.0); Lymphocytes % (auto) 19.5 % (10.0-50.0); Mean Corpuscular Hemoglobin 28.9 pg (28.0-32.0); Mean Corpuscular Hgb Conc. 32.6 g/dL (32.0-36.0); Mean Corpuscular Volume 88.7 fL (80.0-100.0); Monocytes # (auto) 1.2 uL; Monocytes % (auto) 7.6 % (0.0-12.0); Neutrophils # (auto) 10.9 uL; Neutrophils % (auto) 72.1 % (37.0-80.0); Platelet Count (auto) 268 10^3/uL (140-450); Red Blood Cells 2.74 10^6/uL (4.0-5.20); White Blood Cell 15.1 10^3/uL (4.4-10.8)
--- NOTE | 2019-04-28 10:45 | NUR ---
MD Dr. Luque called at [phone] regarding AM ABG results with new orders to try and CPAP patient when fully awake. Informed patient current sedation and that patient is awake and follows some commands. This RN to input into system. Will notify RT Ortiz of new orders.
--- NOTE | 2019-04-28 10:50 | NUR ---
SEDATION Turned off Diprivan.
--- NOTE | 2019-04-28 11:20 | NUR ---
SEDATION/CPAP TRIAL Fentanyl decreased to 50mcg. RT Diana at bedside and change patient to CPAP mode, patient appears to be tolerating well sating 98%, Heart rate 99, respirations 1, blood pressure 140/88. Will continue to monitor patient closely
--- NOTE | 2019-04-28 11:20 | NUR ---
CPAP TRIAL ,PER DR. ECKERT'S T. O. TAKEN BY ANYA PARIKH., PLACED ON CPAP PS 8,PEEP 5,FIO2 30%. PT. TOLERATING WELL AT THIS TIME, WILL CONTINUE TO MONITOR RESP. STATUS FOR SIGNS OF DISTRESS.
[2019-04-28] MEDS: PROPOFOL 100 ML IV SCH (11:44)
--- NOTE | 2019-04-28 13:20 | NUR ---
SEDATION Turned off Fentanyl.
--- NOTE | 2019-04-28 13:20 | NUR ---
DR. ECKERT CONTACTED WITH ABG RESULTS. ORDERS RECEIVED TO EXTUBATE PT. IF PT. HAS A GOOD LEAK.
--- NOTE | 2019-04-28 13:40 | NUR ---
LEAK MEASURED AT 410CC, WITH AUDIBLE LEAK.
--- NOTE | 2019-04-28 13:47 | NUR ---
PT. EXTUBATED AND PLACED ON COOL AEROSOL AT 30% FI02. HR=96,RR=20,SP02=98%. NO STRIDOR PRESENT, BS. SLIGHTLY COARSE AND DIMINISHED AT THE BASES. ALSO ORDERS FOR RACEMIC EPINEPHRINE 0.5ML PRN IF PT. DEVELOPS STRIDOR.
--- NOTE | 2019-04-28 13:47 | NUR ---
RESPIRATORY RT Diana at bedside, extubated and placed on cool aerosol at 30%. Heart rate 96, Respirations 20 and O2 sats 98%. No stridor present. Call light within reach and at bedside.
[2019-04-28] MEDS ORDERED: FLUCONAZOLE 200MG/100ML 100 ML IV ONE (14:15)
--- NOTE | 2019-04-28 14:30 | NUR ---
MD Dr. Luque at bedside updated on patient condition with no new orders at this time. MD spoke to patient and patient regarding plan of care and questions/concerns answered by MD.
[2019-04-28] MEDS: MIDAZOLAM DRIP 50 mg/50mL 50 ML IV SCH (15:55)
[2019-04-28] MEDS: NOREPINEPHRINE 8 MG/250ML KIT 250 ML IV SCH (16:15)
[2019-04-28] MEDS: fentaNYL Drip 2500mCg/250mlNS 250 ML IV SCH (16:36)
[2019-04-28] MEDS: DAPTOmycin 500 MG in SODIUM CHL 0.9% 50 ML IV SCH (18:00)
[2019-04-28] MEDS ORDERED: TPN PER PHARMACY IV NR ×9 (20:00)
--- NOTE | 2019-04-28 20:49 | NUR ---
FAMILY AT BEDSIDE
[2019-04-28] MEDS: AMIODARONE HCL 900 MG in DEXTROSE 500 ML IV SCH (21:59)
--- NOTE | 2019-04-28 23:15 | NUR ---
TEMP. PT HAS ELEVATED TEMP, COOLING MEASURES ARE IN PLACE, WILL CONTINUE TO MONITOR.
[2019-04-29] VITALS (73 sets, daily range): BP systolic 87–148; BP diastolic 51–92
--- NOTE | 2019-04-29 00:04 | NUR ---
PAIN PT SHOWING SS OF PAIN. PT GRIMACING, VS ELEVATED AND PT SAYING "OW OW OW" PAIN MEDICATION ADMINISTERED PER PRESCRIPTION, WILL REASSESS PT.
--- NOTE | 2019-04-29 00:50 | NUR ---
LEOLA GARCIA HAS A TEMP WNL, WILL CONTINUE TO MONITOR
--- NOTE | 2019-04-29 01:15 | NUR ---
PAIN REASSESSMENT PT NO LONGER SHOWING SIGNS OF PAIN. VS ARE LOWER AND STABLE, PT IS NOT GRIMACING AND PT NO LONGER SAYING OW. WILL CONTINUE TO CARE FOR AND MONITOR.
[2019-04-29] MEDS: MEPERIDINE HCL (25 MG/ML) 1ML VIAL IV PRN (03:26)
[2019-04-29] MEDS: AMIODARONE HCL 900 MG in DEXTROSE 500 ML IV SCH (03:28)
--- NOTE | 2019-04-29 03:31 | NUR ---
PAIN PT SHOWING SS OF PAIN. PT GRIMICING, VS ELEVATED AND PT SAYING "OW OW OW" PAIN MEDICATION ADMINISTERED PER PRESCRIPTION, WILL REASSESS PT.
[2019-04-29 04:59] LABS: Albumin 1.7 g/dL (3.4-5.0); Calcium 7.6 mg/dL (8.5-10.1)
[2019-04-29 05:03] LABS: BUN/Creatinine Ratio 53.8; Bilirubin, Total 0.4 mg/dL (0.2-1.0); Phosphorus 3.5 mg/dL (2.5-4.90); Total Protein 5.5 g/dL (6.4-8.2)
--- NOTE | 2019-04-29 05:05 | NUR ---
HYGIENE PARTIAL BED BATH PROVIDED, PARTIAL JOE CHANGE PROVIDED. PT TOLERATED CARE. VS STABLE
[2019-04-29] MEDS: SODIUM CHL 0.9% IV SCH ×3 (06:03→22:03)
[2019-04-29] MEDS: CEFTAZIDIME AVIBACTAM IV SCH ×3 (06:03→22:03)
[2019-04-29] MEDS: ACCU-CHEK COMFORT CURVE STRIP VI SCH ×4 (06:21→17:57)
[2019-04-29] MEDS: InsuLIN REG 1unit/0.01ml Soln (100units/ml) SC SCH ×4 (06:22→18:33)
--- NOTE | 2019-04-29 09:15 | NUR ---
Dr Hong visits et examines patient - orders received. CXR and ABG obtained, IVF turned off and medication orders received.
[2019-04-29] MEDS ORDERED: FUROSEMIDE 100 MG/10ML VIAL IV ONE (09:45)
[2019-04-29] MEDS: FLUCONAZOLE 200MG/100ML 100 ML IV SCH (09:51)
[2019-04-29] MEDS: PROPOFOL 100 ML IV SCH (09:51)
[2019-04-29] MEDS: PANTOPRAZOLE 40 MG/10 ML VIAL INJ IV SCH ×2 (10:08→21:42)
--- NOTE | 2019-04-29 11:30 | NUR ---
DR COYLE VISITS - INFORMED PATIENT INVOL MOD AMT SOFT BLACK TARRY STOOLS THIS AM - NO NEW ORDERS RECEIVED.
--- NOTE | 2019-04-29 11:33 | NUR ---
Patient diuresing clear pale yellow urine in large amounts post Lasix IV. Patient's visits - updated on patient's condition - verbalized understanding.
--- NOTE | 2019-04-29 11:52 | NUR ---
Nutrition Follow-up Notes Wt.: 96.0 kg today. Pt's in isolation room, successfully extubated yesterday, on oxygen via nasal cannula, asleep, no immediate family member at bedside during rounds earlier. Pt remains NPO, on TPN @ 75 m/hr to provide 1950 kcal, 90 gms pro, 1590 NPCs and 21% Fat. Pt with adequate PN support d/t high initiation rate delivery of concentrated formula aeb current PN infusion meets 99% to 104% of est caloric needs and 82% to 114% of est protein needs. Noted pt's to receive tonight another TPN at same rate and nutrient concentration. Est. Needs ABW [id number] kcal (23-25 kcal/kgBW), 79-111 gms pro (1.0-1.4 gms/kgBW reassessed d/t severe hypoalbuminemia). Will continue to monitor pertinent labs and reassess nutrient need prn Labs: Gluc 145 H, Na 135 L, BUN 21 H, Cr 0.39 L, Ca 7.6 L, ALT 10 L, Tpro 5.5 L, Alb 1.7 L; Tpro 4.2 L, Trig 152 H. Skin: Yasir scale 13, mod risk, pt's multiple pressure area/wounds per injection mold tooling technician. Pls refer to latest press operator apprentice's notes for further details re: tx plans. GI: Pt had 1 BM yesterday per injection mold tooling technician. PES: Increased nutrient needs r/t current medical condition aeb intubated sedated with order of NPO Altered nutrition related lab values r/t current/chronic medical condition aeb hyperglycemia, hyponatremia, hypokalemia, hyperchloremia, elev. BUN, Trop I, HbA1c, LFTs, hyperbilirubinemia, hypocalcemia and mod hypoalbuminemia Will continue to monitor NPO status, PN tolerance, pertinent labs, skin status and weight trends. F/u in 2 to 3 days. Additional Recommendation: 1.) If still NPO continue with PN support that meet at least 75% of est nutrient needs. 2.) Advance gradually to oral diet (per ST;s diet texture recommendation when medically appropriate. 3.) Refer to RD for further nutrition educ. and weight monitoring upon discharge. 4.) Continue current plan of care.
--- NOTE | 2019-04-29 12:30 | NUR ---
DR ECKERT VISITS ET EXAMINES PATIENT - ORDERS RECEIVED.
[2019-04-29 13:06] LABS: Hematocrit 26.9 % (36.0-46.0); Hemoglobin 8.7 g/dL (12.2-16.2); Mean Corpuscular Hemoglobin 28.3 pg (28.0-32.0); Mean Corpuscular Hgb Conc. 32.3 g/dL (32.0-36.0); Mean Corpuscular Volume 87.9 fL (80.0-100.0); Platelet Count (auto) 356 10^3/uL (140-450); Red Blood Cells 3.07 10^6/uL (4.0-5.20); Red Cell Distribution Width 16.4 % (11.8-14.3); White Blood Cell 18.3 10^3/uL (4.4-10.8)
[2019-04-29 13:15] LABS: Basophils % (manual) 0 (0.0-2.0); Blast Cells 0; Eosinophils % (manual) 0 (0-7); Metamyelocytes % 0; Myelocytes % 0; Promyelocytes % 0; Reactive Lymphocytes 0
[2019-04-29 13:26] LABS: Band Neutrophils % (manual) 3; Lymphocytes % (manual) 9 (10.0-50.0); Monocytes % (manual) 9 (0-12)
--- NOTE | 2019-04-29 15:00 | NUR ---
PATIENT MORE ALERT THIS AFTERNOON, ANSWERS QUESTIONS WEAKLY BUT APPROPRIATELY.
[2019-04-29] MEDS: MIDAZOLAM DRIP 50 mg/50mL 50 ML IV SCH (15:07)
[2019-04-29] MEDS: fentaNYL Drip 2500mCg/250mlNS 250 ML IV SCH (15:08)
[2019-04-29] MEDS: NOREPINEPHRINE 8 MG/250ML KIT 250 ML IV SCH (15:09)
[2019-04-29] MEDS: DAPTOmycin 500 MG in SODIUM CHL 0.9% 50 ML IV SCH (17:00)
--- NOTE | 2019-04-29 18:50 | NUR ---
PATIENT ON 4L O2 PER NC - SAO2 DROPPED TO 72% WITH GOOD WAVEFORM, HR 120'S. RESP LABORED AND RATE IN 30'S - RT AND DR ECKERT NOTIFIED. NONREBREATHER APPLIED AT 15L - SAO2 84%.
[2019-04-29] MEDS ORDERED: ETOMIDATE (2MG/ML) 20ML VIAL IV ONE (18:59)
[2019-04-29] MEDS ORDERED: MIDAZOLAM HCL 1MG/1ML-2 ML VIAL ONE (18:59)
[2019-04-29] MEDS ORDERED: ROCURONIUM 10MG/ML 10ML VIAL IV ONE (19:01)
--- NOTE | 2019-04-29 19:03 | NUR ---
PATIENT INTUBATED PER DR ECKERT AT BEDSIDE WITH #19 ETT, PLACEMENT VERIFIED WITH PORTABLE CXR WITH POSITIVE COLOR CHANGE. BIBASILAR CRACKLES AUSCULTATED PER MD. VERSED, LEVOPHED AND FENTANYL GTTS STARTED - SEE IV FLOWSHEET.
[2019-04-29] MEDS ORDERED: MIDAZOLAM DRIP 50 mg/50mL 50 ML IV ONE (19:16)
--- NOTE | 2019-04-29 19:24 | NUR ---
Respiratory note: PT REINTUBATED DUE TO RESP FAILURE AND UNABLE TO PROTECT AIRWAY. Marvin ECKERT MD INTUBATED WITH ONE ATTEMPT WITH A SIZE 7.5 ETT @ 22 LIP. PULLED BACK TUBE TO 19 FOR POSITIVE BS EQUAL AND BILATERALLY CXR CONFIRMED GOOD TUBE PLACEMENT. BS CLR/DIM T/O. ETCO2 CAP POSITIVE COLOR CHANGE. ETT SECURED WITH HOLISTER. NO SKIN BREAKDOWN NOTED. SXN WITH GAG AND COUGH NOTED. THICK CORDOVA MODERATE SECRETIONS UPON RETURN. SPUTUM SENT TO LAB. PT PLACED ON CARESCAPE VENTILATOR V13 WITH SETTINGS OF AC RR 12/ VT 400/ PEEP 8/ FIO2 100%. VENT PLUGGED INTO RED OUTLET AND ALARMS ON AND FUNCTIONING. O2 CONNECTED TO WALL WITH BVM BY BEDSIDE. ABG WAS OBTAINED AND RESULTS REPORTED TO Marvin ECKERT MD WITH NO CHANGES TO SETTINGS ONLY TO TITRATE FIO2 TO MAINTAIN SPO2 >92%.
[2019-04-29] MEDS ORDERED: TPN PER PHARMACY IV NR ×10 (20:00)
--- NOTE | 2019-04-29 20:00 | NUR ---
SHIFT OPENING NOTE RECEIVED REPORT FROM ROSA PARIKH. PATIENT HAS JUST BEEN REINTUBATED. SEDATED WITH VERSED AND FENTANYL. ON LEVOPHED TO DECREASED BP. VENT SETTINGS AC 12, TV 400, FIO2 100%, PEEP 8. SALAS CATH DRAINING YELLOW URINE TO GRAVITY. RIJ 3 LUMEN INFUSING TPN, AMIO AND OTHER DRIPS. PHYSICAL ASSESSMENT COMPLETED, SEE INTERVENTIONS. WILL CLOSELY MONITOR.
--- NOTE | 2019-04-29 20:19 | NUR ---
CLINICAL PRODUCT MANAGER INFORMED PATIENT'S SON ALLISON OF NEED FOR RE-INTUBATION DUE TO LOW O2 LEVELS - VERBALIZED UNDERSTANDING.
[2019-04-29] MEDS: FUROSEMIDE 40 MG/4 ML VIAL IV SCH (21:42)
--- NOTE | 2019-04-29 23:00 | NUR ---
OG TUBE PLACED PLACEMENT VERIFIED BY AUSCULTATION AND ASPIRATION ON CONTENTS.
[2019-04-29 23:39] LABS: BUN/Creatinine Ratio 53.2; Calcium 7.7 mg/dL (8.5-10.1); Potassium 3.5 mmol/L (3.5-5.1)
[2019-04-30] VITALS (82 sets, daily range): BP systolic 85–130; BP diastolic 42–83
[2019-04-30] MEDS: ACCU-CHEK COMFORT CURVE STRIP VI SCH ×4 (00:14→18:57)
[2019-04-30] MEDS: InsuLIN REG 1unit/0.01ml Soln (100units/ml) SC SCH ×4 (00:15→18:00)
[2019-04-30] MEDS: MIDAZOLAM DRIP 50 mg/50mL 50 ML IV SCH ×4 (01:00→17:57)
[2019-04-30 04:20] LABS: Albumin 1.5 g/dL (3.4-5.0); Calcium 7.7 mg/dL (8.5-10.1); Magnesium 1.7 mg/dL (1.6-2.6); Potassium 3.4 mmol/L (3.5-5.1)
[2019-04-30 04:23] LABS: BUN/Creatinine Ratio 67.5; Bilirubin, Total 0.3 mg/dL (0.2-1.0); Phosphorus 3.1 mg/dL (2.5-4.90); Total Protein 5.1 g/dL (6.4-8.2)
--- NOTE | 2019-04-30 05:00 | NUR ---
MORNING HYGIENE CARE ORAL CARE DONE. FULL BED BATH PERFORMED USING CHG WIPES AND WARM SOAPY WASHCLOTHS. GOWN CHANGED. FULL LINEN CHANGE. PATIENT REPOSITIONED FOR COMFORT. TOLERATED IT WELL.
[2019-04-30] MEDS: CEFTAZIDIME AVIBACTAM IV SCH ×3 (05:52→22:00)
[2019-04-30] MEDS: SODIUM CHL 0.9% IV SCH ×3 (05:52→22:00)
--- NOTE | 2019-04-30 06:00 | NUR ---
UPDATED PATIENTS SON ALLISON OF PATIENTS STATUS
[2019-04-30] MEDS: FUROSEMIDE 40 MG/4 ML VIAL IV SCH ×2 (06:25→19:00)
[2019-04-30] MEDS: NOREPINEPHRINE 8 MG/250ML KIT 250 ML IV SCH ×2 (06:35→23:00)
[2019-04-30] MEDS: AMIODARONE HCL 900 MG in DEXTROSE 500 ML IV SCH (06:36)
--- NOTE | 2019-04-30 07:07 | NUR ---
END OF SHIFT REPORT GIVEN AND CARE ENDORSED TO ROSA PARIKH.
[2019-04-30] MEDS: FLUCONAZOLE 200MG/100ML 100 ML IV SCH (09:29)
[2019-04-30] MEDS: PROPOFOL 100 ML IV SCH (09:29)
[2019-04-30] MEDS: PANTOPRAZOLE 40 MG/10 ML VIAL INJ IV SCH ×2 (09:30→21:16)
[2019-04-30 11:03] LABS: Basophils # (auto) 0.1 uL; Basophils % (auto) 0.4 % (0.0-2.0); Eosinophils # (auto) 0.1 uL; Eosinophils % (auto) 0.8 % (0.0-7.0); Hemoglobin 8.8 g/dL (12.2-16.2); Lymphocytes # (auto) 3.1 uL; Lymphocytes % (auto) 18.1 % (10.0-50.0); Mean Corpuscular Hemoglobin 28.7 pg (28.0-32.0); Mean Corpuscular Hgb Conc. 32.5 g/dL (32.0-36.0); Mean Corpuscular Volume 88.5 fL (80.0-100.0); Monocytes # (auto) 1.3 uL; Monocytes % (auto) 7.3 % (0.0-12.0); Neutrophils # (auto) 12.7 uL; Neutrophils % (auto) 73.4 % (37.0-80.0); Platelet Count (auto) 370 10^3/uL (140-450); Red Blood Cells 3.05 10^6/uL (4.0-5.20); Red Cell Distribution Width 16.3 % (11.8-14.3); White Blood Cell 17.3 10^3/uL (4.4-10.8)
--- NOTE | 2019-04-30 11:45 | NUR ---
DR SHORE VISITS AND EXAMINES PATIENT - INFORMED OF 3+ EDEMA TO LEFT UPPER EXTREMITY - ORDERS RECEIVED.
--- NOTE | 2019-04-30 12:40 | NUR ---
US TECH AT BEDSIDE FOR LEFT UPPER EXTREMITY DOPPLER STUDY.
--- NOTE | 2019-04-30 13:50 | NUR ---
ULTRASOUND REPORT RECEIVED - DR SHORE NOTIFIED - STATES TO NOTIFY DR ECKERT FOR RECOMMENDATIONS.
--- NOTE | 2019-04-30 14:05 | NUR ---
WOUND CARE NOTE: IN TO SEE PATIENT AT THIS TIME FOR WOUND REEVALUATION. PATIENT CONTINUES TO BE INTUBATED, SEDATED, RESTS ON SPECIALTY AIR BED. PATIENT HAS MULTIPLE WOUNDS, WITH NO CHANGE IN WOUND STATUS NOTED. NEW WOUND PHOTOS TAKEN AT THIS TIME FOR REFERENCE. ALL WOUNDS CLEANSED AND DRESSED PER MD ORDER TO ALL BACK AND SACRAL WOUNDS, LEFT POSTERIOR CALF BLISTER. RECOMMEND: CONTINUATION WITH ALL WOUND CARE ORDERS PREVIOUSLY PRESCRIBED BY MD. WOUND CARE TEAM WILL CONTINUE TO MONITOR. Addendum: 04/30/19 at 1724 by Bren Mcfarlane RN Amended: Links added.
--- NOTE | 2019-04-30 14:07 | NUR ---
CALL PLACED TO DR ECKERT RE: RECOMMENDATIONS FOR POSITIVE DVT LEFT ARM.
[2019-04-30] MEDS: POTASSIUM CHL 20MEQ/100ML 100 ML IV SCH ×2 (14:22→16:56)
--- NOTE | 2019-04-30 14:30 | NUR ---
DR ECKERT RETURNS CALL - STATES TO OKAY HEPARIN USE WITH GI SERVICE.
--- NOTE | 2019-04-30 14:45 | NUR ---
PLACED ANOTHER CALL TO DR COYLE RE: POSSIBLE HEPARIN GTT FOR DVT Addendum: 04/30/19 at 1706 by Noreen Fagan RN ERROR - FIRST CALL TO DR COYLE PLACED, NOT SECOND.
[2019-04-30] MEDS ORDERED: POTASSIUM PHOSPHATE 22 MEQ in SODIUM CHL 0.9% 100 ML IV ONE (15:00)
--- NOTE | 2019-04-30 15:30 | NUR ---
PLACED SECOND CALL TO DR COYLE RE: USE OF HEPARING FOR DVT.
--- NOTE | 2019-04-30 17:06 | NUR ---
PLACED CALL TO DR YEUNG RE: USE OF HEPARIN FOR DVT- RETURNED CALL - ORDERS RECEIVED.
--- NOTE | 2019-04-30 17:13 | NUR ---
DR BABAR REINOSO RE: NEED FOR POSSIBLE THORACENTESIS - ORDERS RECEIVED.
[2019-04-30] MEDS ORDERED: HEPARIN SODIUM (PORCINE) 5000 UNITS/ML 1ML VIAL IV ONE (17:30)
[2019-04-30] MEDS ORDERED: PANTOPRAZOLE 80 MG in SODIUM CHL 0.9% 60 ML IV SCH (17:30)
[2019-04-30] MEDS: fentaNYL Drip 2500mCg/250mlNS 250 ML IV SCH (17:56)
--- NOTE | 2019-04-30 18:00 | NUR ---
LAB AT BEDSIDE - UNABLE TO DRAW COAGS.
--- NOTE | 2019-04-30 18:20 | NUR ---
COAGS SENT TO LAB
--- NOTE | 2019-04-30 18:25 | NUR ---
CONSENT FOR THORACENTESIS OBTAINED.
--- NOTE | 2019-04-30 18:28 | NUR ---
CALL PLACED TO DR Fer YEUNG RE: CHANGE OF PROTONIX IV GTT TO IVP BID
[2019-04-30 18:51] LABS: INR 1.32 (0.9-1.15)
[2019-04-30] MEDS: MAGNESIUM SULFATE 1GM/100ML 100 ML IV SCH ×2 (19:00→20:00)
[2019-04-30] MEDS: DAPTOmycin 500 MG in SODIUM CHL 0.9% 50 ML IV SCH (19:30)
--- NOTE | 2019-04-30 19:30 | NUR ---
DR ECKERT VISITS -INFORMED OF COAGS - [facility] WILL DO THORA IN - [facility] NOTIFIED - [facility] WILL NOTIFY [facility] TO ASSIST MD IN AM WITH THORA. Addendum: 04/30/19 at 2051 by Noreen Fagan RN PATIENT'S INFORMED WHEN THORA WILL OCCUR - VERBALIZED UNDERSTANDING.
[2019-04-30] MEDS ORDERED: TPN PER PHARMACY IV NR ×11 (20:00)
--- NOTE | 2019-04-30 20:00 | NUR ---
ADMITTED ON 04/22/2019 WITH A DIAGNOSIS OF GI BLEED, RESPIRATORY FAILURE. ORAL ETT , ORAL NGT. SMALL AMOUNT OF CLEAR ORAL SECRETIONS. VERY LITTLE CLEAR SECRETIONS FROM THE ETT. GRIMACES. DOES NOT OPEN EYES SPONTANEOUSLY. FELICITY. RIJ TLC WITH TPN, HEPARIN, AMIODARONE, VERSED AND LEVOPHED. REPLACING MAGNESIUM SULFATE CURRENTLY. ABDOMEN SOFT, ROUND. GENERALIZED PITTING EDEMA. HAS A NEW DIAGNOSIS OF DVT IN LEFT ARM. CUFF ON RIGHT ARM. ALL PULSES WEAK. MULTIPLE WOUNDS. WOUND CARE IS SEEING HER. DRESSINGS WERE DONE TODAY. OGT HAS BEEN A PROBLEM TODAY. AT 1900 ADÁN ADVANCED THE NGT . CXR DONE. HEPARIN DRIP IS NEW. NO BOLUS GIVEN. BACK: UPPER WOUND IS A DTI. MID BACK IS AN OPEN WOUND . USING THERAHONEY ON IT AND A FOAM DRESSING. SACRAL AREA AND BUTTOCKS IS MACERATED AND AM APPLYING Z GUARD. LEFT POSTERIOR CALF WOUND HAS A BLISTER. SCDS ON. WEAK COUGH AND GAG. EGD DONE A FEW DAYS AGO. EXTUBATED ON 04/28/2019. REINTUBATED AT 1900 ON 04/29/2019. NGT OUTPUT: NOTHING. NGT: UNABLE TO PUSH AIR OR WATER THROUGH IT. PULLED IT BACK TILL I COULD AND THEN GOT THE CXR. FOAM BOOTS ON.
[2019-04-30] MEDS: HEPARIN DRIP/D5W 100UNITS/ML 250 ML IV SCH (20:56)
--- NOTE | 2019-04-30 22:00 | NUR ---
CONSENT FOR THORACENTESIS FOR TOMORROW. DR ECKERT WANTS US TO TURN THE HEPARIN OFF ONE HOUR BEFORE THE PROCEDURE AT 0800 ON 05/01/2019. REPOSITIONED TO BACK. ATRIAL FIB CONTROLLED RATE. NO FEVER. SBP STABLE ON LEVOPHED 13 MCG. SEDATION ADEQUATE.
[2019-05-01] VITALS (93 sets, daily range): BP systolic 86–144; BP diastolic 36–98
--- NOTE | 2019-05-01 | NUR ---
VSS. NO CHANGE IN ASSESSMENT. ATRIAL FIB. IVS SHOW NO REDNESS OR SWELLING. URINE OUTPUT ADEQUATE.
[2019-05-01] MEDS: MIDAZOLAM DRIP 50 mg/50mL 50 ML IV SCH ×3 (01:15→15:03)
--- NOTE | 2019-05-01 02:00 | NUR ---
CHG BATH. COMPLETE LINEN CHANGE. FOAM DRESSING OF THE UPPER DTI. MID BACK HAS SOME SHAW DRNG. BUTTOCKS DRESSING HAS SOME SEROUS BROWN LIQUID. SEVERAL AREAS WHERE THE TOP LAYER HAS BEEN TAKEN OFF. Z GUARD ON SKIN. NO BM TONIGHT SO FAR. REPOSITIONED . ORAL CARE DONE. SUCTIONED ETT FOR CLEAR SECRETIONS. IV DRESSING CLEAN AND CURRENT.
--- NOTE | 2019-05-01 03:20 | NUR ---
AM LABS DRAWN. DIFFICULTY GETTING BLOOD FROM THE WHITE AND BLUE PORTS.
--- NOTE | 2019-05-01 04:00 | NUR ---
VSS. NO CHANGE IN STATUS. SBP RANGES FROM THE 90'S TO THE 120S. LUNGS CLEAR. ABDOMEN SOFT. NO BM THIS SHIFT. 3+ PITTING EDEMA IN ARMS AND LEGS. ALL PULSES WEAK AND PALPABLE.
[2019-05-01 05:28] LABS: Potassium 3.4 mmol/L (3.5-5.1)
[2019-05-01] MEDS: AMIODARONE HCL 900 MG in DEXTROSE 500 ML IV SCH ×2 (05:30→06:00)
[2019-05-01 05:35] LABS: Albumin 1.3 g/dL (3.4-5.0); BUN/Creatinine Ratio 73.8; Bilirubin, Total 0.3 mg/dL (0.2-1.0); Calcium 7.4 mg/dL (8.5-10.1); Phosphorus 3.1 mg/dL (2.5-4.90); Pre Albumin 4.2 mg/dL (20.0-40.0); Total Protein 4.5 g/dL (6.4-8.2)
[2019-05-01] MEDS: FUROSEMIDE 40 MG/4 ML VIAL IV SCH ×2 (05:51→18:16)
[2019-05-01] MEDS: InsuLIN REG 1unit/0.01ml Soln (100units/ml) SC SCH ×4 (06:00→18:00)
[2019-05-01] MEDS: ACCU-CHEK COMFORT CURVE STRIP VI SCH ×4 (06:02→18:00)
[2019-05-01] MEDS: SODIUM CHL 0.9% IV SCH ×3 (06:05→21:57)
[2019-05-01] MEDS: CEFTAZIDIME AVIBACTAM IV SCH ×3 (06:05→21:57)
[2019-05-01 06:22] LABS: INR 1.23 (0.9-1.15)
[2019-05-01 06:24] LABS: Partial Thromboplastin Time 104.4 sec (23.64-32.05)
--- NOTE | 2019-05-01 06:35 | NUR ---
HOLDING HEPARIN NOT ONLY FOR A PTT OF 104.4, BUT ALSO FOR A THORACENTESIS TODAY.
--- NOTE | 2019-05-01 07:00 | NUR ---
REPORT RECEIVED FROM YARD ASSISTANT NURSE. PATIENT RESTING IN BED AT THIS TIME. RESPIRATIONS EVEN AND UNLABORED, INTUBATED AND SEDATED. NO SIGNS OF ACUTE DISTRESS NOTED. BED IN LOW POSITION. WILL CONTINUE TO MONITOR.
[2019-05-01] MEDS: fentaNYL Drip 2500mCg/250mlNS 250 ML IV SCH ×2 (07:49→20:00)
--- NOTE | 2019-05-01 08:00 | NUR ---
NGT PLACEMENT UNABLE TO FLUSH OR ASPIRATE FROM NGT TO CONFIRM PLACEMENT UPON ASSESSMENT. CXR RECOMMENDS ADVANCEMENT, ATTEMPTED WITHOUT SUCCESS. PLACED NEW 14F NGT. PATIENT TOLERATED WELL. ASPIRATED AND AUSCULTATED PLACEMENT.
--- NOTE | 2019-05-01 09:36 | NUR ---
DR Shalini SHORE AT BEDSIDE TO ASSESS PATIENT AND DISCUSS PLAN OF CARE. MD MADE AWARE OF POTASSIUM LEVEL OF 3.4, PER MD ADMINISTER 40MEQ POTASSIUM IVPB X1. ORDERS NOTED IN CHART.
[2019-05-01] MEDS: FLUCONAZOLE 200MG/100ML 100 ML IV SCH (10:17)
[2019-05-01] MEDS: POTASSIUM CHL 20MEQ/100ML 100 ML IV SCH ×2 (10:18→13:04)
--- NOTE | 2019-05-01 10:25 | NUR ---
DR ECKERT AT BEDSIDE FOR THORACENTESIS. CONSENTS SIGNED BY PRIOR TO PROCEDURE. REMOVED 500ML OF YELLOW FLUID FROM RIGHT THORACENTESIS USING STERILE TECHNIQUE. PATIENT TOLERATED WELL. MD APPLIED DRESSING TO SITE, CXR ORDERED.
[2019-05-01] MEDS: PANTOPRAZOLE 40 MG/10 ML VIAL INJ IV SCH ×2 (11:08→21:12)
[2019-05-01] MEDS: PROPOFOL 100 ML IV SCH (11:44)
--- NOTE | 2019-05-01 13:09 | NUR ---
PICC LINE NURSE AT BEDSIDE FOR PICC LINE PLACEMENT.
[2019-05-01] MEDS ORDERED: LIDOCAINE 1% (LOCAL ANESTH.) PF 5ml SDV ID ONE (13:45)
--- NOTE | 2019-05-01 15:10 | NUR ---
DR Nimco YEUNG AT BEDSIDE TO ASSESS PATIENT AND DISCUSS PLAN OF CARE. NO NEW ORDERS AT THIS TIME. PER MD PATIENT OK TO BE ON HEPARIN DRIP.
[2019-05-01 15:57] LABS: INR 1.31 (0.9-1.15); Partial Thromboplastin Time 47.4 sec (23.64-32.05)
--- NOTE | 2019-05-01 16:40 | NUR ---
RESTARTED HEPARIN DRIP PER MD. AFTER REDRAW OF COAGULATIONS. SPOKE WITH PHARMACIST AND RESTARTED HEPARIN DRIP AT 1700UNIT/HR. WILL REDRAW PTT IN 6 HOURS.
[2019-05-01] MEDS: HEPARIN DRIP/D5W 100UNITS/ML 250 ML IV SCH ×2 (16:50→20:00)
[2019-05-01] MEDS: DAPTOmycin 500 MG in SODIUM CHL 0.9% 50 ML IV SCH (18:16)
--- NOTE | 2019-05-01 19:45 | NUR ---
5 IV LINES CHANGED OUT
[2019-05-01] MEDS: NOREPINEPHRINE 8 MG/250ML KIT 250 ML IV SCH (20:00)
[2019-05-01] MEDS ORDERED: TPN PER PHARMACY IV NR ×11 (20:00)
--- NOTE | 2019-05-01 20:00 | NUR ---
ADMITTED FROM HOME WITH COMPLAINTS OF BLACK EMESIS AND BLACK STOOLS. NEWLY DEVELOPED DVT IN LEFT ARM. INTUBATED, EXTUBATED ON THE . REINTUBATED ON THE . 14 FR ORAL NGT TO LIS DRAINING BROWN LIQUID. ORALLY INTUBATED. CLEAR ORAL SECRETIONS. SUCTIONED ETT FOR A SMALL AMOUNT OF CLEAR SECRETIONS. LUNGS CLEAR. VERY HYPOACTIVE GAG. FELICITY AND SLUGGISH. OBESE. ROUND ABDOMEN. YOU CAN FEEL THE PAIN PUMP IN THE RIGHT LOWER ABDOMEN. I UNDERSTAND IT IS EMPTY. SKIN FOLDS ARE SLIGHTLY RED. Z GUARD APPLIED. MULTIPLE DECUBITUS FROM PREVIOUS OUTSIDE FACILITIES. DTI ON UPPER SPINE. OPEN WOUND MID SPINE WITH THERAHONEY AND FOAM DRESSING. BUTTOCKS AND SACRAL AREA :MACERATION, SEVERAL OPEN AREAS. RIGHT HEEL WOUND IS SCABBED. FOAM BOOTS ON. SCD ON LEFT LEG ONLY. BP CUFF ON RIGHT LOWER LEG. MOVES ARMS WEAKLY. ALL PULSES WEAK. 3+ PITTING EDEMA IN ARMS AND LEGS. SALAS IN PLACE WITH CLEAR YELLOW LIQUID. LASIX PATIENT. HAS A RIJ TLC AND A NEW RIGHT UPPER ARM PICC LINE.
--- NOTE | 2019-05-01 20:15 | NUR ---
LEFT RADIAL AREA ECHHYMOTIC AND ONE TINY INSERTION SITE IS OOZING SEROUS FLUID. FOAM DRESSING APPLIED
--- NOTE | 2019-05-01 21:00 | NUR ---
accucheck [id number]
[2019-05-01] MEDS: SODIUM CHLOR 0.9% PF (SALINE LOCK) 10ML VIAL/SYR IV SCH (22:00)
--- NOTE | 2019-05-01 23:07 | NUR ---
PTT DRAWN AND SENT WITH LAB PERSONNEL.
[2019-05-01 23:48] LABS: INR 1.32 (0.9-1.15)
[2019-05-01 23:51] LABS: Partial Thromboplastin Time > 139.0 sec (23.64-32.05)
--- NOTE | 2019-05-01 23:54 | NUR ---
PTT GREATER THAN 200. HOLDING INFUSION FROM 2355 TO 0055.
[2019-05-02] VITALS (101 sets, daily range): BP systolic 80–185; BP diastolic 5–87
--- NOTE | 2019-05-02 | NUR ---
REPOSITIONED TO LEFT. ORAL CARE. NOTHING SUCTIONED FROM THE ETT. LUNGS CLEAR. ABDOMEN SOFT. SALAS DRAINING CLEAR YELLOW LIQUID. ATRIAL FIB WITH OCCASIONAL VENTRICULAR PACED BEATS. NGT DRAINING DARK GREEN/COFFEE GROUND LIQUID.
--- NOTE | 2019-05-02 02:00 | NUR ---
NO CHANGE IN ASSESSMENT. IVS SHOW NO REDNESS OR SWELLING. LUNGS CLEAR. ORAL CARE DONE
[2019-05-02] MEDS: AMIODARONE HCL 900 MG in DEXTROSE 500 ML IV SCH (02:50)
[2019-05-02] MEDS: MIDAZOLAM DRIP 50 mg/50mL 50 ML IV SCH ×5 (03:00→20:00)
--- NOTE | 2019-05-02 03:30 | NUR ---
AM LABS DRAWN
--- NOTE | 2019-05-02 04:10 | NUR ---
CHG BATH. COMPLETE LINEN CHANGE. Z GUARD TO AREA UNDER BREASTS, UNDER PANUS, AND IN GROIN AREA. SMALL REDDENED AREAS IN EACH SECTION. ATRIAL FIB . UNABLE TO WEAN DOWN THE LEVOPHED TONIGHT. PATIENT GRIMACES WHEN YOU DO ORAL CARE, CHANGE THE BACK OF HER BED, OR MOVE HER IN ANYWAY.
[2019-05-02 04:53] LABS: Calcium 7.6 mg/dL (8.5-10.1); Potassium 3.7 mmol/L (3.5-5.1)
[2019-05-02 04:59] LABS: Albumin 1.3 g/dL (3.4-5.0); BUN/Creatinine Ratio 80.5; Bilirubin, Total 0.3 mg/dL (0.2-1.0); Magnesium 1.9 mg/dL (1.6-2.6)
[2019-05-02 05:05] LABS: Total Protein 4.7 g/dL (6.4-8.2)
[2019-05-02] MEDS: CEFTAZIDIME AVIBACTAM IV SCH ×3 (05:55→22:00)
[2019-05-02] MEDS: SODIUM CHL 0.9% IV SCH ×3 (05:55→22:00)
[2019-05-02] MEDS: FUROSEMIDE 40 MG/4 ML VIAL IV SCH (05:56)
[2019-05-02] MEDS: ACCU-CHEK COMFORT CURVE STRIP VI SCH ×4 (05:56→18:00)
[2019-05-02] MEDS: InsuLIN REG 1unit/0.01ml Soln (100units/ml) SC SCH ×4 (06:00→18:00)
[2019-05-02 06:08] LABS: Phosphorus 3.2 mg/dL (2.5-4.90)
--- NOTE | 2019-05-02 07:45 | NUR ---
OPEN Report received from Kianna PARIKH. Care initiated and initial assessment completed.
[2019-05-02 07:54] LABS: INR 1.26 (0.9-1.15)
[2019-05-02 07:57] LABS: Partial Thromboplastin Time 114.3 sec (23.64-32.05)
--- NOTE | 2019-05-02 08:10 | NUR ---
PTPTT Updated lab values. Heparin infusion updated. See IV spreadsheet.
[2019-05-02] MEDS: PANTOPRAZOLE 40 MG/10 ML VIAL INJ IV SCH ×2 (09:00→21:00)
[2019-05-02] MEDS: HEPARIN DRIP/D5W 100UNITS/ML 250 ML IV SCH ×2 (09:10→21:00)
--- NOTE | 2019-05-02 09:45 | NUR ---
FAMILY BEDSIDE Patients granddaughter Lalitha bedside. Updated on patients condition and questions addressed. Granddaughter Lalitha and Willis would like to speak to primary MD. Primary MD notified.
[2019-05-02] MEDS: FLUCONAZOLE 200MG/100ML 100 ML IV SCH (09:47)
[2019-05-02] MEDS: SODIUM CHLOR 0.9% PF (SALINE LOCK) 10ML VIAL/SYR IV SCH ×2 (09:48→22:00)
--- NOTE | 2019-05-02 10:00 | NUR ---
BEDSIDE Dr. Glez bedside assessing patient. New orders received.
[2019-05-02] MEDS ORDERED: BUMETANIDE INJECTION 25 MG in GIVE UN-DILUTED 0 ML IV SCH (10:30)
--- NOTE | 2019-05-02 10:50 | NUR ---
SPEAKING TO FAMILY Dr. Glez speaking to granddaughter Lalitha and Willis. Updated on patients condition.
--- NOTE | 2019-05-02 11:20 | NUR ---
Nutrition Follow-up Notes Wt.: 100.2 kg today. Noted 4.2 kg weight gain in last 3 days likely d/t? fluid retention aeb positive I & Os for past few days. Pt's in isolation room, re-intubated (04/29/19), sedated, no immediate family member at bedside during rounds earlier. Pt remains NPO, on TPN @ 75 m/hr providing 1890 kcal, 100 gms pro, 1490 NPCs and 16% Fat. Pt with adequate PN support d/t high initiation rate delivery of concentrated formula aeb current PN infusion meets 96% to 106% of est caloric needs and 90% to 127% of est protein needs. Noted pt's to receive tonight another TPN at same rate and nutrient concentration. Est. Needs ABW [id number] kcal (23-25 kcal/kgBW), 79-111 gms pro (1.0-1.4 gms/kgBW reassessed d/t severe hypoalbuminemia). Will continue to monitor pertinent labs and reassess nutrient need prn Labs: Gluc 111 H, Na 133 L, BUN 33 H, Cr 0.41 L, Ca 7.6 L, Tpro 4.7 L, Alb 1.3 L; Tpro 4.2 L, Trig 152 H. Skin: Yasir scale 13, mod risk, pt's multiple pressure area/wounds per switchboard operator receptionist. Pls refer to latest seo executive's notes for further details re: tx plans. GI: Pt had 1 BM 04/30/19 per switchboard operator receptionist. PES: Increased nutrient needs r/t current medical condition aeb intubated sedated with order of NPO Altered nutrition related lab values r/t current/chronic medical condition aeb hyperglycemia, hyponatremia, hypokalemia, hyperchloremia, elev. BUN, Trop I, HbA1c, LFTs, hyperbilirubinemia, hypocalcemia and mod hypoalbuminemia Will continue to monitor NPO status, PN tolerance, pertinent labs, skin status and weight trends. F/u in 2 to 3 days. Additional Recommendation: 1.) If still NPO, continue with PN support that meet at least 75% of est nutrient needs. 2.) Advance gradually to oral diet (per ST;s diet texture recommendation when medically appropriate. 3.) Refer to RD for further nutrition educ. and weight monitoring upon discharge. 4.) Continue current plan of care.
[2019-05-02] MEDS: PROPOFOL 100 ML IV SCH (11:44)
--- NOTE | 2019-05-02 12:30 | NUR ---
LOW BLOOD GLUCOSE Repeated accucheck to confirm low blood glucose. Medication given as ordered.
--- NOTE | 2019-05-02 14:30 | NUR ---
PTPTT Updated labs received. Holding heparin infusion for one hour and decreasing rate after the hour. Repeat lab to be drawn at 2029.
[2019-05-02 15:29] LABS: INR 1.27 (0.9-1.15)
[2019-05-02 15:34] LABS: Partial Thromboplastin Time 116.4 sec (23.64-32.05)
[2019-05-02] MEDS: DAPTOmycin 500 MG in SODIUM CHL 0.9% 50 ML IV SCH (17:00)
[2019-05-02] MEDS ORDERED: TPN PER PHARMACY IV NR ×11 (20:00)
--- NOTE | 2019-05-02 20:00 | NUR ---
ADMITTED WITH GI BLEED. RESPIRATORY FAILURE. EXTUBATED ON THE AND REINTUBATED ON THE . TODAY THE FAMILY WAS DISCUSSING TERMINAL WEAN. NO DECISION HAS BEEN MADE. ATRIAL FIB CONTROLLED RATE. IN ER HAD A FIB RVR AND WAS PLACED ON AMIODARONE DRIP. CONTINUES AMIODARONE AT .5 IV DRIP. DEVELOPED A DVT IN THE LEFT ARM AND WAS PLACED ON A HEPARIN DRIP. PTT HAS BEEN HIGH. SEDATION: FENTANYL AND VERSED. OCCASIONALLY GRIMACES WHEN WE MOVE HER. ORALLY INTUBATED. ORAL 14 FR SALEM SUMP TO LIS. THE DRNG IS THICK AND I HAVE HAD TO LAVAGE A FEW TIMES TO KEEP IT FLOWING. LESS ORAL SECRETIONS. WAS PLACED ON A BUMEX DRIP TODAY AND THE LASIX WAS DISCONTINUED. ADEQUATE URINE OUTPUT. 3+ PITTING EDEMA IN ARMS AND LEGS. CUFF ON RIGHT LEG. SCD ONLY ON LEFT LEG. ALL PULSES WEAK. ISOLATION FOR VRE IN URINE. HAS A RIJ TLC AND A RIGHT UPPER ARM PICC LINE.
--- NOTE | 2019-05-02 22:00 | NUR ---
REPOSITIONED. SUCTIONED ETT. ORAL CARE. PTT SENT.
[2019-05-02 23:06] LABS: INR 1.24 (0.9-1.15)
[2019-05-02 23:19] LABS: Partial Thromboplastin Time 89.4 sec (23.64-32.05)
[2019-05-03] VITALS (81 sets, daily range): BP systolic 78–127; BP diastolic 33–77
--- NOTE | 2019-05-03 | NUR ---
VSS. NO NEW ISSUES. ATRIAL FIB CONTROLLED RATE. LUNGS CLEAR. ABDOMEN SOFT. NGT IRRIGATED. ADEQUATE URINE OUTPUT.
[2019-05-03] MEDS: MIDAZOLAM DRIP 50 mg/50mL 50 ML IV SCH ×5 (00:43→23:30)
[2019-05-03] MEDS: NOREPINEPHRINE 8 MG/250ML KIT 250 ML IV SCH (02:50)
[2019-05-03] MEDS: fentaNYL Drip 2500mCg/250mlNS 250 ML IV SCH ×2 (02:50→16:21)
--- NOTE | 2019-05-03 03:00 | NUR ---
AM LAB DRAW
--- NOTE | 2019-05-03 03:53 | NUR ---
CHG BATH, COMPLETE LINEN CHANGE
[2019-05-03 04:56] LABS: INR 1.27 (0.9-1.15); Partial Thromboplastin Time 66.3 sec (23.64-32.05)
[2019-05-03 05:09] LABS: Albumin 1.1 g/dL (3.4-5.0); Calcium 7.3 mg/dL (8.5-10.1); Magnesium 1.6 mg/dL (1.6-2.6); Potassium 3.7 mmol/L (3.5-5.1)
[2019-05-03 05:11] LABS: BUN/Creatinine Ratio 83.3; Bilirubin, Total 0.2 mg/dL (0.2-1.0); Phosphorus 2.9 mg/dL (2.5-4.90); Total Protein 4.3 g/dL (6.4-8.2)
[2019-05-03] MEDS: CEFTAZIDIME AVIBACTAM IV SCH ×3 (05:38→23:35)
[2019-05-03] MEDS: SODIUM CHL 0.9% IV SCH ×3 (05:38→23:35)
--- NOTE | 2019-05-03 05:38 | NUR ---
INTERDRY IN BREAST FOLDS, PANUS AND GROIN FOLDS
[2019-05-03] MEDS: InsuLIN REG 1unit/0.01ml Soln (100units/ml) SC SCH ×4 (06:00→17:57)
[2019-05-03] MEDS: ACCU-CHEK COMFORT CURVE STRIP VI SCH ×4 (06:00→17:54)
--- NOTE | 2019-05-03 09:40 | NUR ---
LAB HERE TO DRAW PTT FOR HEPARIN GTT, INSTRUCTED SKIN CARVER TO AVOID LET ARM WITH PT'S DVT.
[2019-05-03] MEDS: PANTOPRAZOLE 40 MG/10 ML VIAL INJ IV SCH ×2 (10:31→23:44)
[2019-05-03] MEDS: SODIUM CHLOR 0.9% PF (SALINE LOCK) 10ML VIAL/SYR IV SCH ×2 (10:31→22:00)
[2019-05-03 10:52] LABS: Hemoglobin 7.5 g/dL (12.2-16.2)
[2019-05-03 10:53] LABS: Hematocrit 22.5 % (36.0-46.0); Mean Corpuscular Hemoglobin 30.7 pg (28.0-32.0); Mean Corpuscular Hgb Conc. 33.5 g/dL (32.0-36.0); Mean Corpuscular Volume 91.8 fL (80.0-100.0); Platelet Count (auto) 286 10^3/uL (140-450); Red Blood Cells 2.46 10^6/uL (4.0-5.20); Red Cell Distribution Width 16.9 % (11.8-14.3)
[2019-05-03 11:00] LABS: Basophils % (manual) 0 (0.0-2.0); Blast Cells 0; Eosinophils % (manual) 0 (0-7); Metamyelocytes % 0; Myelocytes % 0; Promyelocytes % 0; Reactive Lymphocytes 0
[2019-05-03 11:08] LABS: INR 1.29 (0.9-1.15); Partial Thromboplastin Time 50.5 sec (23.64-32.05)
[2019-05-03] MEDS: PROPOFOL 100 ML IV SCH (11:44)
--- NOTE | 2019-05-03 12:32 | NUR ---
DR. SHORE ROUNDING ON PT. PT'S SPOUSE ASKED DR. SHORE IF THEY SHOULD WITHDRAW LIFE SUPPORT. MD TOLD HIM " LET ME SPEAK WITH THE [employer] DRIVER HELPER AND I'LL GET BACK TO YOU". PT'S SON ALSO AT BEDSIDE. PT REPOSITIONED FOR COMFORT AT THIS TIME.
[2019-05-03 12:40] LABS: Band Neutrophils % (manual) 3; Lymphocytes % (manual) 20 (10.0-50.0); Monocytes % (manual) 9 (0-12)
--- NOTE | 2019-05-03 14:17 | NUR ---
DR. COYLE ROUNDING ON PT. UPDATED ON PT'S CONDITION, NO NEW ORDERS RECEIVED. WILL CONTINUE MONITORING.
[2019-05-03] MEDS: DAPTOmycin 500 MG in SODIUM CHL 0.9% 50 ML IV SCH (17:52)
[2019-05-03] MEDS: AMIODARONE HCL 900 MG in DEXTROSE 500 ML IV SCH (18:54)
[2019-05-03] MEDS: HEPARIN DRIP/D5W 100UNITS/ML 250 ML IV SCH (18:59)
--- NOTE | 2019-05-03 19:01 | NUR ---
BUSINESS DEVELOPMENT MANAGER Suzie SHORE ROUNDING ON PT MD ORDER TO REPLACED MG.
--- NOTE | 2019-05-03 19:20 | NUR ---
Optifoam changed Optifoam dressing on back saturated, dressing changed
--- NOTE | 2019-05-03 19:25 | NUR ---
open assumed care of female pt orally intubated. pt is connected to icu monitors. vs are stable. rr are equal and unlabored. no ss of distress noted at this time. pt has a patent rij triple lumen, dressing is clean and dry no ss of redness or swelling noted.pt is generalized edematous, +3 in upper extremities. pt has sullivan hanging below bladder draining to gravity. pillows are in place to offload pressure of ceci prominences for comfort and safety. bed is in the lowest position, wheels locked hob 30*, side rails up x3, pt is in full view of rn station. will continue to care for and monitor.
--- NOTE | 2019-05-03 19:30 | NUR ---
FAMILY AT BEDSIDE
--- NOTE | 2019-05-03 19:46 | NUR ---
PTT WNL, NO CHANGES TO HEPARIN GTT, REPORT GIVEN TO ONCOMING SHIFT.
[2019-05-03] MEDS ORDERED: TPN PER PHARMACY IV NR ×11 (20:00)
--- NOTE | 2019-05-03 21:40 | NUR ---
falls pts son confiremed several fall recently. pts son stated "she fell and even hit her head one of the times." pts son stated the pts called the pts son and said "your mom fell you need to come over here." when the pts son arrived at the house he said his mom was on the ground and there was blood all over from her hitting her knee and head.
--- NOTE | 2019-05-03 22:21 | NUR ---
rt at bedside
[2019-05-03] MEDS ORDERED: MAGNESIUM SULFATE 1GM/100ML 100 ML IV ONE (23:06)
[2019-05-03] MEDS: MAGNESIUM SULFATE 1GM/100ML 100 ML IV SCH (23:30)
[2019-05-04] VITALS (67 sets, daily range): BP systolic 86–139; BP diastolic 33–70
[2019-05-04] MEDS: ACCU-CHEK COMFORT CURVE STRIP VI SCH ×4 (00:13→19:16)
[2019-05-04 01:17] LABS: INR 1.16 (0.9-1.15)
--- NOTE | 2019-05-04 02:55 | NUR ---
suction canisters and suction tubing changed
[2019-05-04] MEDS ORDERED: MAGNESIUM SULFATE 1GM/100ML 100 ML IV ONE (03:40)
--- NOTE | 2019-05-04 03:45 | NUR ---
HYGIENE PARTIAL BED BATH PROVIDED, PARTIAL JOE CHANGE PROVIDED. PT TOLERATED CARE. VS STABLE
[2019-05-04] MEDS: MAGNESIUM SULFATE 1GM/100ML 100 ML IV SCH (03:47)
[2019-05-04 04:16] LABS: Potassium 4.1 mmol/L (3.5-5.1)
[2019-05-04 04:19] LABS: INR 1.19 (0.9-1.15); Partial Thromboplastin Time 55.6 sec (23.64-32.05)
[2019-05-04 04:28] LABS: Albumin 1.1 g/dL (3.4-5.0); BUN/Creatinine Ratio 84.4; Bilirubin, Total 0.2 mg/dL (0.2-1.0); Calcium 7.5 mg/dL (8.5-10.1); Magnesium 1.9 mg/dL (1.6-2.6); Phosphorus 3.1 mg/dL (2.5-4.90); Total Protein 4.4 g/dL (6.4-8.2)
[2019-05-04] MEDS: fentaNYL Drip 2500mCg/250mlNS 250 ML IV SCH (05:12)
[2019-05-04] MEDS: MIDAZOLAM DRIP 50 mg/50mL 50 ML IV SCH (05:13)
[2019-05-04] MEDS: HEPARIN DRIP/D5W 100UNITS/ML 250 ML IV SCH (05:17)
[2019-05-04] MEDS: SODIUM CHL 0.9% IV SCH ×3 (05:21→23:31)
[2019-05-04] MEDS: CEFTAZIDIME AVIBACTAM IV SCH ×3 (05:21→23:31)
[2019-05-04] MEDS: InsuLIN REG 1unit/0.01ml Soln (100units/ml) SC SCH ×4 (06:00→18:00)
[2019-05-04] MEDS: AMIODARONE HCL 900 MG in DEXTROSE 500 ML IV SCH (08:52)
[2019-05-04] MEDS: SODIUM CHLOR 0.9% PF (SALINE LOCK) 10ML VIAL/SYR IV SCH ×2 (09:48→22:00)
[2019-05-04] MEDS: PANTOPRAZOLE 40 MG/10 ML VIAL INJ IV SCH ×2 (09:48→20:57)
[2019-05-04] MEDS: PROPOFOL 100 ML IV SCH (09:49)
--- NOTE | 2019-05-04 11:07 | NUR ---
Nutrition Follow-up Notes Wt.: 101.0 kg today. Pt's in isolation room, intubated, sedated, no immediate family member at bedside when rounded earlier. Pt remains NPO, on TPN @ 77 m/hr providing 1890 kcal, 100 gms pro, 1490 NPCs and 16% Fat. Pt with adequate PN support d/t high initiation rate delivery of concentrated formula aeb current PN infusion meets 96% to 106% of est caloric needs and meets 79% to 106% of est protein needs. Noted pt's to receive tonight another TPN at same rate and nutrient concentration. Est. Needs ABW [id number] kcal (23-25 kcal/kgBW), 94-126 gms pro (1.2-1.6 gms/kgBW reassessed d/t severe hypoalbuminemia). Will continue to monitor pertinent labs and reassess nutrient need prn Labs: Gluc 148 H, BUN 38 H, Cr 0.45 L, Ca 7.5 L, Tpro 4.1 L, Alb 1.1 L; Tpro 4.2 L, Trig 47 wnl. Skin: Yasir scale 11, high risk, pt's multiple pressure area/wounds per clinical documentation manager. Pls refer to latest infection control practitioner's notes for further details re: tx plans. GI: Pt had 1 BM 04/30/19, 400 ml gastric drainage output this morning per clinical documentation manager. PES: Increased nutrient needs r/t current medical condition aeb intubated sedated with order of NPO Altered nutrition related lab values r/t current/chronic medical condition aeb hyperglycemia, hyponatremia, hypokalemia, hyperchloremia, elev. BUN, Trop I, HbA1c, LFTs, hyperbilirubinemia, hypocalcemia and mod hypoalbuminemia Will continue to monitor NPO status, PN tolerance, pertinent labs, skin status and weight trends. F/u in 2 to 3 days. Additional Recommendation: 1.) If still NPO, continue with PN support that meet at least 75% of est nutrient needs. 2.) Advance gradually to oral diet (per ST;s diet texture recommendation when medically appropriate. 3.) Refer to RD for further nutrition educ. and weight monitoring upon discharge. 4.) Continue current plan of care.
[2019-05-04 12:58] LABS: Hematocrit 22.2 % (36.0-46.0); Hemoglobin 7.2 g/dL (12.2-16.2)
--- NOTE | 2019-05-04 13:10 | NUR ---
SPOKE WITH DR. RAY ABOUT PT BEING ON HEPARIN GTT I ASKED HIM IF HE WANTED GTT TO BE STOPPED FOR THORACENTESES, HE SAID TO STOP IT NOW. HEPARIN GTT. STOPPED AT THIS TIME.
[2019-05-04] MEDS: NOREPINEPHRINE 8 MG/250ML KIT 250 ML IV SCH (16:15)
--- NOTE | 2019-05-04 17:30 | NUR ---
ASSISTED DR. RAY WITH RT ULTRASOUND GUIDED THORACENTESIS. PT TOLERATED PROCEDURE WELL. 800 ML OBTAINED. PLEURAL FLUID COLLECTED AND SENT FOR LDH, CYTOLOGY,PROTEIN & GLUCOSE.
[2019-05-04] MEDS: BUMETANIDE INJECTION 25 MG in GIVE UN-DILUTED 0 ML IV SCH (19:13)
[2019-05-04] MEDS: DAPTOmycin 500 MG in SODIUM CHL 0.9% 50 ML IV SCH (19:24)
[2019-05-04] MEDS ORDERED: TPN PER PHARMACY IV NR ×10 (20:00)
--- NOTE | 2019-05-04 20:20 | NUR ---
FAMILY AT BEDSIDE
[2019-05-05] VITALS (87 sets, daily range): BP systolic 94–178; BP diastolic 41–105
--- NOTE | 2019-05-05 00:15 | NUR ---
insulin given accu check shows elevated bs, insulin given per prescribed protocol.
[2019-05-05] MEDS: HEPARIN DRIP/D5W 100UNITS/ML 250 ML IV SCH ×2 (00:25→15:08)
--- NOTE | 2019-05-05 01:00 | NUR ---
suction canisters and suction tubing changed
--- NOTE | 2019-05-05 03:00 | NUR ---
HYGIENE BED BATH PROVIDED, full JOE CHANGE PROVIDED. PT TOLERATED CARE. VS STABLE
[2019-05-05 04:04] LABS: Albumin 1.2 g/dL (3.4-5.0); BUN/Creatinine Ratio 79.2; Calcium 7.6 mg/dL (8.5-10.1); Magnesium 2.1 mg/dL (1.6-2.6); Potassium 4.3 mmol/L (3.5-5.1)
[2019-05-05 04:06] LABS: Bilirubin, Total 0.2 mg/dL (0.2-1.0); Total Protein 5.1 g/dL (6.4-8.2)
[2019-05-05 04:12] LABS: INR 1.11 (0.9-1.15); Partial Thromboplastin Time 50.1 sec (23.64-32.05)
[2019-05-05 04:31] LABS: Hematocrit 24.3 % (36.0-46.0); Hemoglobin 7.8 g/dL (12.2-16.2); Mean Corpuscular Hemoglobin 28.4 pg (28.0-32.0); Mean Corpuscular Hgb Conc. 32.3 g/dL (32.0-36.0); Platelet Count (auto) 383 10^3/uL (140-450); Red Blood Cells 2.76 10^6/uL (4.0-5.20); Red Cell Distribution Width 16.5 % (11.8-14.3); White Blood Cell 13.5 10^3/uL (4.4-10.8)
[2019-05-05 04:40] LABS: Basophils % (manual) 0 (0.0-2.0); Blast Cells 0; Eosinophils % (manual) 0 (0-7); Metamyelocytes % 0; Myelocytes % 0; Promyelocytes % 0; Reactive Lymphocytes 0
[2019-05-05 04:52] LABS: Phosphorus 3.2 mg/dL (2.5-4.90)
--- NOTE | 2019-05-05 05:20 | NUR ---
son called pt son called provided pw, was updated on poc and pts status. all questions and concerns addressed at this time.
[2019-05-05 05:36] LABS: Band Neutrophils % (manual) 3; Lymphocytes % (manual) 16 (10.0-50.0); Monocytes % (manual) 4 (0-12)
[2019-05-05] MEDS: InsuLIN REG 1unit/0.01ml Soln (100units/ml) SC SCH ×4 (06:00→18:23)
[2019-05-05] MEDS: ACCU-CHEK COMFORT CURVE STRIP VI SCH ×4 (06:00→18:22)
[2019-05-05] MEDS: SODIUM CHL 0.9% IV SCH ×3 (06:00→22:33)
[2019-05-05] MEDS: CEFTAZIDIME AVIBACTAM IV SCH ×3 (06:00→22:33)
--- NOTE | 2019-05-05 06:15 | NUR ---
insulin given accu check shows elevated bs, insulin given per prescribed protocol.
--- NOTE | 2019-05-05 08:22 | NUR ---
DR. KAPLAN PAGED AWAITING CALLBACK
[2019-05-05] MEDS: PANTOPRAZOLE 40 MG/10 ML VIAL INJ IV SCH ×2 (09:36→22:24)
[2019-05-05] MEDS: SODIUM CHLOR 0.9% PF (SALINE LOCK) 10ML VIAL/SYR IV SCH ×2 (09:37→22:00)
[2019-05-05] MEDS: AMIODARONE HCL 900 MG in DEXTROSE 500 ML IV SCH (09:37)
--- NOTE | 2019-05-05 09:47 | NUR ---
DR. COYLE AT BEDSIDE
--- NOTE | 2019-05-05 10:10 | NUR ---
FAMILY AT BEDSIDE. UPDATED ON PATIENT STATUS. ALL QUESTIONS AND CONCERNS ADDRESSED AT THIS TIME
[2019-05-05] MEDS: PROPOFOL 100 ML IV SCH (11:44)
--- NOTE | 2019-05-05 15:04 | NUR ---
DR. KAPLAN AT BEDSIDE
[2019-05-05] MEDS: DexMEDEtomidine 400 MCG in D5W 5% 96 ML IV SCH (15:18)
--- NOTE | 2019-05-05 15:20 | NUR ---
DECREASED PEEP TO 7, PER DR RAY'S ORDERS.
[2019-05-05] MEDS: MIDAZOLAM DRIP 50 mg/50mL 50 ML IV SCH ×2 (15:55→22:37)
[2019-05-05] MEDS: NOREPINEPHRINE 8 MG/250ML KIT 250 ML IV SCH (16:15)
[2019-05-05] MEDS: fentaNYL Drip 2500mCg/250mlNS 250 ML IV SCH ×2 (16:36→22:36)
[2019-05-05] MEDS: DAPTOmycin 500 MG in SODIUM CHL 0.9% 50 ML IV SCH (16:52)
[2019-05-05] MEDS: BUMETANIDE INJECTION 25 MG in GIVE UN-DILUTED 0 ML IV SCH (17:44)
--- NOTE | 2019-05-05 19:20 | NUR ---
open assumed care of female pt orally intubated. pt is connected to icu monitors. vs are stable. rr are equal. PT HAS IV SEE IV SPREADSHEET. IV dressings ARE clean and dry no ss of redness or swelling noted.pt is generalized edematous. pt has sullivan hanging below bladder draining to gravity. pillows are in place to offload pressure of ceci prominences for comfort and safety. PT HAS [place] BOOTS BILATERAL LOWER EXTREMITIES. bed is in the lowest position, wheels locked hob 30*, side rails up x3, pt is in full view of rn station. will continue to care for and monitor.
[2019-05-05] MEDS ORDERED: TPN PER PHARMACY IV NR ×10 (20:00)
--- NOTE | 2019-05-05 20:15 | NUR ---
FAMILY AT BEDSIDE
[2019-05-06] VITALS (99 sets, daily range): BP systolic 88–178; BP diastolic 44–100
--- NOTE | 2019-05-06 00:05 | NUR ---
DR. QUAN AND RT AT BEDSIDE NO NEW ORDERS GIVEN
--- NOTE | 2019-05-06 00:30 | NUR ---
insulin given accu check shows elevated bs, insulin given per prescribed protocol.
[2019-05-06 04:33] LABS: INR 1.09 (0.9-1.15); Partial Thromboplastin Time 41.3 sec (23.64-32.05)
[2019-05-06 04:59] LABS: Albumin 1.3 g/dL (3.4-5.0); Calcium 8.4 mg/dL (8.5-10.1)
[2019-05-06 05:01] LABS: BUN/Creatinine Ratio 78.4; Bilirubin, Total 0.3 mg/dL (0.2-1.0); Phosphorus 2.9 mg/dL (2.5-4.90); Total Protein 5.5 g/dL (6.4-8.2)
[2019-05-06] MEDS: HEPARIN DRIP/D5W 100UNITS/ML 250 ML IV SCH (05:39)
--- NOTE | 2019-05-06 06:08 | NUR ---
PTS SON CALLED TO CHECK ON HIS MOTHER ALL QUESTIONS AND CONCERNS ADDRESSED. PT STATED HE WILL COME TO BY AROUND 9AM TO SEE HIS MOM.
[2019-05-06] MEDS: SODIUM CHL 0.9% IV SCH ×3 (06:16→21:00)
[2019-05-06] MEDS: CEFTAZIDIME AVIBACTAM IV SCH ×3 (06:16→21:00)
[2019-05-06] MEDS: InsuLIN REG 1unit/0.01ml Soln (100units/ml) SC SCH ×5 (06:22→23:29)
[2019-05-06] MEDS: ACCU-CHEK COMFORT CURVE STRIP VI SCH ×5 (06:22→23:28)
--- NOTE | 2019-05-06 06:23 | NUR ---
insulin given accu check shows elevated bs, insulin given per prescribed protocol.
[2019-05-06] MEDS: DexMEDEtomidine 400 MCG in D5W 5% 96 ML IV SCH ×2 (07:35→23:37)
[2019-05-06 09:25] LABS: INR 1.11 (0.9-1.15)
[2019-05-06] MEDS: SODIUM CHLOR 0.9% PF (SALINE LOCK) 10ML VIAL/SYR IV SCH ×2 (09:39→21:02)
[2019-05-06] MEDS: PANTOPRAZOLE 40 MG/10 ML VIAL INJ IV SCH ×2 (09:39→20:47)
[2019-05-06 10:20] LABS: Hematocrit 23.6 % (36.0-46.0); Hemoglobin 7.6 g/dL (12.2-16.2); Mean Corpuscular Hemoglobin 28.4 pg (28.0-32.0); Mean Corpuscular Hgb Conc. 32.3 g/dL (32.0-36.0); Mean Corpuscular Volume 87.9 fL (80.0-100.0); Platelet Count (auto) 389 10^3/uL (140-450); Red Blood Cells 2.69 10^6/uL (4.0-5.20); Red Cell Distribution Width 16.8 % (11.8-14.3); White Blood Cell 12.4 10^3/uL (4.4-10.8)
[2019-05-06 10:21] LABS: Band Neutrophils % (manual) 0; Basophils % (manual) 0 (0.0-2.0); Blast Cells 0; Eosinophils % (manual) 0 (0-7); Metamyelocytes % 0; Myelocytes % 0; Promyelocytes % 0; Reactive Lymphocytes 0
[2019-05-06 10:44] LABS: Lymphocytes % (manual) 18 (10.0-50.0); Monocytes % (manual) 5 (0-12)
[2019-05-06] MEDS: PROPOFOL 100 ML IV SCH (11:44)
--- NOTE | 2019-05-06 12:07 | NUR ---
Nutrition Follow-up Notes Wt.: 100.0 kg today. Pt's in isolation room, intubated, sedated, remains NPO, curerntly on TPN @ 77 m/hr providing 1890 kcal, 100 gms pro, 1490 NPCs and 16% Fat. Pt with adequate PN support d/t high initiation rate delivery of concentrated formula aeb current PN infusion meets 96% to 106% of est caloric needs and meets 79% to 106% of est protein needs. Est. Needs ABW [id number] kcal (23-25 kcal/kgBW), 94-126 gms pro (1.2-1.6 gms/kgBW reassessed d/t severe hypoalbuminemia). Will continue to monitor pertinent labs and reassess nutrient need prn Labs: BUN 40 H, Cr 0.57 L, Ca 8.4 L, AST 47 H, Tpro 5.5 L, Alb 1.3 L; Tpro 4.2 L, Trig 47 wnl. Skin: Yasir scale 11, high risk, pt's multiple pressure area/wounds per motorcycle tester. Pls refer to latest vault worker's notes for further details re: tx plans. GI: Pt had 1 BM 04/30/19 per motorcycle tester. PES: Increased nutrient needs r/t current medical condition aeb intubated sedated with order of NPO Altered nutrition related lab values r/t current/chronic medical condition aeb hyperglycemia, hyponatremia, hypokalemia, hyperchloremia, elev. BUN, Trop I, HbA1c, LFTs, hyperbilirubinemia, hypocalcemia and mod hypoalbuminemia Will continue to monitor NPO status, PN tolerance, pertinent labs, skin status and weight trends. F/u in 2 to 3 days. Additional Recommendation: 1.) If remains NPO, continue with PN support that meet at least 75% of est nutrient needs. 2.) Advance gradually to oral diet (per ST's diet texture recommendation or consider EN support if medically appropriate. 3.) Refer to RD for further nutrition educ. and weight monitoring upon discharge. 4.) Continue current plan of care.
--- NOTE | 2019-05-06 12:12 | NUR ---
Respiratory note: RR DECREASED TO [address] RAY. KATI NIELSEN IS AWARE. NEW VENT SETTINGS: RR 10, VT 400, PEEP 7, AND 30% FIO2. ABG TO BE DRAWN TOMORROW AM.
--- NOTE | 2019-05-06 12:16 | NUR ---
Tammy SHORE PAGED REGARDING CODE STATUS. SPOKE WITH EXCHANGE
--- NOTE | 2019-05-06 12:21 | NUR ---
LAZARUS RAE. PER WILL SCHEDULE TRACHEOSTOMY ON WEDNESDAY 05/09 Addendum: 05/06/19 at 1316 by Michael Khanna RN WRONG PATIENT
--- NOTE | 2019-05-06 12:22 | NUR ---
PEG TUBE PEG TUBE PLACEMENT SCHEDULED FOR WEDNESDAY 05/[address] COYLE Addendum: 05/06/19 at 1316 by Michael Khanna RN WRONG PATIENT
[2019-05-06 15:23] LABS: INR 1.09 (0.9-1.15); Partial Thromboplastin Time 51.6 sec (23.64-32.05)
[2019-05-06] MEDS: AMIODARONE HCL 900 MG in DEXTROSE 500 ML IV SCH (15:41)
[2019-05-06] MEDS: NOREPINEPHRINE 8 MG/250ML KIT 250 ML IV SCH (16:15)
--- NOTE | 2019-05-06 16:15 | NUR ---
DR. SHORE REPAGED
[2019-05-06] MEDS: DAPTOmycin 500 MG in SODIUM CHL 0.9% 50 ML IV SCH (16:41)
[2019-05-06] MEDS: BUMETANIDE INJECTION 25 MG in GIVE UN-DILUTED 0 ML IV SCH (16:41)
--- NOTE | 2019-05-06 17:08 | NUR ---
CODE STATUS PER WOULD LIKE TO MAKE PATIENT DNR. DR. Shalini SHORE MADE AWARE
--- NOTE | 2019-05-06 19:00 | NUR ---
OPENING NOTES ASSUMED CARE, LAYING ON BED, OPENING HER EYES OCCASIONALLY, ON VENT AND SEDATION WITH FENTANYL @ 100 MCG/HR, AMIODARONE @ 0.5 MG/MIN INFUSING IN THE RIGHT IJ, HEPARIN DRIP @ 1000 UNITS, BUMEX @ 4ML/HR, TPN @ 77 ML/HR INFUSING IN THE RIGHT ARM, OGT AND SALAS CATHETER IN PLACE, [place] BOOTS TO BOTH FEET AND SCD'S ON BILATERAL LEGS. BED IN LOWEST POSITION WITH SIDE RAILS UP, BED ALARM ON. WILL CONTINUE CARE.
--- NOTE | 2019-05-06 19:24 | NUR ---
REPORT GIVEN TO SILVA PARIKH TO ASSUME CARE
[2019-05-06] MEDS ORDERED: TPN PER PHARMACY IV NR ×9 (20:00)
--- NOTE | 2019-05-06 21:11 | NUR ---
APTT 53.8, HEPARIN KEPT @ 1000 UNITS PER PROTOCOL, NO BOLUS, NO CHANGE WAS DONE.
[2019-05-06 21:54] LABS: INR 1.1 (0.9-1.15); Partial Thromboplastin Time 53.8 sec (23.64-32.05)
--- NOTE | 2019-05-06 22:15 | NUR ---
RECEIVED A CALL FROM SON, ALLISON, UPDATED ON PT'S STATUS AFTER PASSWORD WAS OBTAINED, VERBALIZED UNDERSTANDING AND SAID HE WILL VISIT HIS MOM IN THE MORNING.
--- NOTE | 2019-05-06 23:37 | NUR ---
FENTANYL BAG CONSUMED, STARTED PRECEDEX @ 0.4 MCG/KG/HR, BP 154/95, HR 122, SPO2 98%, R 17, LIGHT SEDATION NOTED.
[2019-05-07] VITALS (77 sets, daily range): BP systolic 56–173; BP diastolic 31–97
--- NOTE | 2019-05-07 02:00 | NUR ---
Patient bathe/linen change Patient given complete bath with CHG. Skin integrity assessed for any changes. Full linens and gown changed. Patient repositioned for comfort.
--- NOTE | 2019-05-07 02:30 | NUR ---
Wound care Cleansed wound at the back, left lateral leg and sacral area and optifoam dressings changed, therahoney applied to back and sacral area.
[2019-05-07 04:26] LABS: Basophils # (auto) 0.1 uL; Eosinophils # (auto) 0.1 uL; Mean Corpuscular Volume 87.1 fL (80.0-100.0); Monocytes # (auto) 0.8 uL
[2019-05-07 04:28] LABS: Basophils % (auto) 0.7 % (0.0-2.0); Eosinophils % (auto) 0.9 % (0.0-7.0); Hematocrit 22.2 % (36.0-46.0); Hemoglobin 7.4 g/dL (12.2-16.2); Lymphocytes # (auto) 2.3 uL; Lymphocytes % (auto) 16.4 % (10.0-50.0); Mean Corpuscular Hemoglobin 29.1 pg (28.0-32.0); Mean Corpuscular Hgb Conc. 33.4 g/dL (32.0-36.0); Monocytes % (auto) 5.6 % (0.0-12.0); Neutrophils # (auto) 10.6 uL; Neutrophils % (auto) 76.4 % (37.0-80.0); Platelet Count (auto) 360 10^3/uL (140-450); Red Blood Cells 2.55 10^6/uL (4.0-5.20); Red Cell Distribution Width 16.6 % (11.8-14.3); White Blood Cell 13.8 10^3/uL (4.4-10.8)
[2019-05-07 04:46] LABS: INR 1.12 (0.9-1.15)
[2019-05-07 04:53] LABS: Alanine Aminotransferase 15 U/L (13-56); Albumin 1.3 g/dL (3.4-5.0); Alkaline Phosphatase 96 U/L (45-117); Aspartate Aminotransferase 43 U/L (15-37); Bilirubin, Total 0.2 mg/dL (0.2-1.0); Blood Urea Nitrogen 42 mg/dL (7-18); Calcium 8.1 mg/dL (8.5-10.1); Carbon Dioxide 29 mmol/L (21-32); GFR African American 134 mL/min; GFR Non-African American 111 mL/min; Glucose 126 mg/dL (74-106); Phosphorus 2.9 mg/dL (2.5-4.90); Total Protein 5.7 g/dL (6.4-8.2); Triglycerides 54 mg/dL (< 150)
[2019-05-07 04:54] LABS: Anion Gap 7 (5-15); Chloride 103 mmol/L (98-107); Partial Thromboplastin Time 78.1 sec (23.64-32.05); Potassium 3.5 mmol/L (3.5-5.1); Sodium 139 mmol/L (136-145)
--- NOTE | 2019-05-07 04:55 | NUR ---
APTT 78.1, heparin decreased by 200 units per protocol, Heparin regulated to 800 units.
[2019-05-07] MEDS: ACCU-CHEK COMFORT CURVE STRIP VI SCH ×4 (06:04→23:37)
[2019-05-07] MEDS: HEPARIN DRIP/D5W 100UNITS/ML 250 ML IV SCH ×2 (06:04→12:51)
[2019-05-07] MEDS: CEFTAZIDIME AVIBACTAM IV SCH ×3 (06:08→21:34)
[2019-05-07] MEDS: SODIUM CHL 0.9% IV SCH ×3 (06:08→21:34)
[2019-05-07] MEDS: InsuLIN REG 1unit/0.01ml Soln (100units/ml) SC SCH ×4 (06:29→23:38)
[2019-05-07] MEDS: DexMEDEtomidine 400 MCG in D5W 5% 96 ML IV SCH (06:30)
[2019-05-07] MEDS: PANTOPRAZOLE 40 MG/10 ML VIAL INJ IV SCH ×2 (10:55→21:18)
[2019-05-07] MEDS: POTASSIUM CHL 20MEQ/100ML 100 ML IV SCH ×2 (10:55→13:20)
[2019-05-07] MEDS: SODIUM CHLOR 0.9% PF (SALINE LOCK) 10ML VIAL/SYR IV SCH ×2 (10:56→21:35)
[2019-05-07 12:04] LABS: INR 1.1 (0.9-1.15); Partial Thromboplastin Time 42.2 sec (23.64-32.05)
[2019-05-07] MEDS: PROPOFOL 100 ML IV SCH (12:27)
--- NOTE | 2019-05-07 12:34 | NUR ---
visits et examines patient - speaks to patient' s re: if patient taken off of ventilator and patient, that will not survive - verbalized understanding.
[2019-05-07] MEDS: fentaNYL Drip 2500mCg/250mlNS 250 ML IV SCH (12:35)
--- NOTE | 2019-05-07 12:40 | NUR ---
visits et examines patient - no new orders received. Fentanyl gtt re-started. Patient continues on Precedex.
--- NOTE | 2019-05-07 12:45 | NUR ---
PTT 42.2 - increased Heparin gtt by 200 units per protocol to 1000units/hr. PTT ordered for 1844.
--- NOTE | 2019-05-07 13:00 | NUR ---
Patient's son and [id number] at bedside - aware of patient's terminal diagnosis, visiting with patient.
[2019-05-07] MEDS: MIDAZOLAM DRIP 50 mg/50mL 50 ML IV SCH (15:55)
[2019-05-07] MEDS: NOREPINEPHRINE 8 MG/250ML KIT 250 ML IV SCH (17:30)
--- NOTE | 2019-05-07 17:30 | NUR ---
Levophed started due to patient's BP 56-70's - will continue to monitor BP.
[2019-05-07] MEDS: AMIODARONE HCL 900 MG in DEXTROSE 500 ML IV SCH (18:30)
[2019-05-07] MEDS: BUMETANIDE INJECTION 25 MG in GIVE UN-DILUTED 0 ML IV SCH (18:30)
[2019-05-07] MEDS: DAPTOmycin 500 MG in SODIUM CHL 0.9% 50 ML IV SCH (19:59)
[2019-05-07] MEDS ORDERED: TPN PER PHARMACY IV NR ×10 (20:00)
--- NOTE | 2019-05-07 20:00 | NUR ---
APTT 48.4, Heparin drip increased by 2ml/hr, dosage set @ 12 ml/hr per protocol.
[2019-05-07 20:12] LABS: INR 1.13 (0.9-1.15); Partial Thromboplastin Time 48.4 sec (23.64-32.05)
--- NOTE | 2019-05-07 21:00 | NUR ---
Levophed off, BP 158/79, HR 116
--- NOTE | 2019-05-07 21:28 | NUR ---
Received a call from son, Gilbert, updated on pt's status after password was obtained.
[2019-05-07] MEDS: acetaZOLAMIDE SODIUM 500 MG VL IV SCH (21:58)
[2019-05-08] VITALS (92 sets, daily range): BP systolic 76–182; BP diastolic 40–106
--- NOTE | 2019-05-08 04:00 | NUR ---
APTT 51.2, HEPARIN DRIP MAINTAINED @ 12 ML/HR, PER PROTOCOL, NO BOLUS, NO CHANGE.
[2019-05-08 04:33] LABS: Basophils # (auto) 0.1 uL; Eosinophils # (auto) 0.1 uL; Monocytes % (auto) 5.8 % (0.0-12.0); Nucleated Red Blood Cells % 0.1 %
[2019-05-08 04:39] LABS: Basophils % (auto) 0.8 % (0.0-2.0); Eosinophils % (auto) 0.6 % (0.0-7.0); Hematocrit 24.2 % (36.0-46.0); Lymphocytes # (auto) 2.9 uL; Lymphocytes % (auto) 16.7 % (10.0-50.0); Mean Corpuscular Hemoglobin 28.7 pg (28.0-32.0); Mean Corpuscular Hgb Conc. 32.9 g/dL (32.0-36.0); Mean Corpuscular Volume 87.3 fL (80.0-100.0); Neutrophils # (auto) 13.1 uL; Neutrophils % (auto) 76.1 % (37.0-80.0); Platelet Count (auto) 420 10^3/uL (140-450); Red Blood Cells 2.78 10^6/uL (4.0-5.20); Red Cell Distribution Width 16.5 % (11.8-14.3); White Blood Cell 17.3 10^3/uL (4.4-10.8)
--- NOTE | 2019-05-08 04:40 | NUR ---
Morning care done, skin reassessed for any changes, partial linen changed. Repositioned for comfort.
[2019-05-08 04:49] LABS: INR 1.1 (0.9-1.15); Partial Thromboplastin Time 51.2 sec (23.64-32.05)
[2019-05-08 04:50] LABS: Calcium 8.4 mg/dL (8.5-10.1); Potassium 4.2 mmol/L (3.5-5.1)
[2019-05-08 04:56] LABS: Albumin 1.4 g/dL (3.4-5.0); BUN/Creatinine Ratio 80.6; Bilirubin, Total 0.3 mg/dL (0.2-1.0); Magnesium 2.2 mg/dL (1.6-2.6); Phosphorus 3.6 mg/dL (2.5-4.90); Total Protein 6.3 g/dL (6.4-8.2)
--- NOTE | 2019-05-08 05:02 | NUR ---
Received a call from son, Gilbert, updated on pt's status after obtaining a password. Verbalized understanding.
[2019-05-08] MEDS: ACCU-CHEK COMFORT CURVE STRIP VI SCH ×3 (05:23→18:00)
[2019-05-08] MEDS: SODIUM CHL 0.9% IV SCH ×3 (06:02→23:50)
[2019-05-08] MEDS: CEFTAZIDIME AVIBACTAM IV SCH ×3 (06:02→23:50)
[2019-05-08] MEDS: InsuLIN REG 1unit/0.01ml Soln (100units/ml) SC SCH ×3 (06:03→18:34)
[2019-05-08] MEDS: HEPARIN DRIP/D5W 100UNITS/ML 250 ML IV SCH (06:04)
[2019-05-08] MEDS: MIDAZOLAM DRIP 50 mg/50mL 50 ML IV SCH ×2 (10:00→20:40)
[2019-05-08] MEDS: PANTOPRAZOLE 40 MG/10 ML VIAL INJ IV SCH ×2 (11:14→23:48)
[2019-05-08] MEDS: SODIUM CHLOR 0.9% PF (SALINE LOCK) 10ML VIAL/SYR IV SCH ×2 (11:15→22:00)
--- NOTE | 2019-05-08 11:30 | NUR ---
Patient with sudden desaturation to 79% SAO2 - suctioned per ETT - sm am thick creamy secretions. 2 min FIO2 increased to 100% - RT notified.
--- NOTE | 2019-05-08 11:30 | NUR ---
Respiratory note: PT NOTED TO BE DESATURATING TO 79-83%. PT WAS PREOXYGENATED AND SUCTIONED X 2 WITH LAVAGE FOR A COPIOUS AMOUNT OF THICK YELLOW/BLOODY SECRETIONS. BLOODY MUCOUS PLUGS NOTED IN ETT CIRCUIT WELL. POX NOW 100%. RN ROSA AT BEDSIDE AND AWARE.
[2019-05-08] MEDS: acetaZOLAMIDE SODIUM 500 MG VL IV SCH ×2 (11:38→22:00)
[2019-05-08 11:41] LABS: INR 1.14 (0.9-1.15)
[2019-05-08] MEDS: PROPOFOL 100 ML IV SCH (11:44)
[2019-05-08 11:45] LABS: Partial Thromboplastin Time 75.9 sec (23.64-32.05)
--- NOTE | 2019-05-08 11:47 | NUR ---
SAO2 92% on 100% FIO2. CXR and ABG ordered. Patient repositioned to right side prior to desaturation - returned to supine position with HOB elevated x 30 degrees. Patient nods head to questions about pain - denies pain at present - Fentanyl increased to 200mcg earlier. Versed infusing at 2mg. Levophed restarted earlier for SBP 70's - see IV flowsheet - currently at 4mcg.
--- NOTE | 2019-05-08 11:55 | NUR ---
Respiratory note: DR. RAY WAS LEFT A MESSAGE VIA TELEPHONE REGARDING ABG RESULTS ON 100% FIO2. AWAITING CALL BACK/NEW ORDERS.
--- NOTE | 2019-05-08 12:00 | NUR ---
PTT 75.9 - Heparin rate decreased by 200 units/hr per protocol - Heparin gtt now at 1000 units/hour - repeat PTT level ordered.
--- NOTE | 2019-05-08 12:00 | NUR ---
CXR taken and ABG obtained - call placed to re: critical PAO2 61.
--- NOTE | 2019-05-08 12:46 | NUR ---
Received critical CXR report re: malposition of NG tube - publicity writer removed NG tube.
[2019-05-08] MEDS: NOREPINEPHRINE 8 MG/250ML KIT 250 ML IV SCH (13:15)
[2019-05-08] MEDS: fentaNYL Drip 2500mCg/250mlNS 250 ML IV SCH (13:46)
--- NOTE | 2019-05-08 15:30 | NUR ---
PTT 59.4 - NO CHANGE IN HEPARIN GTT RATE - RE-CHECK PTT TO BE ORDERED. Addendum: 05/08/19 at 2120 by Noreen Fagan RN ERROR - INCORRECT ENTRY
[2019-05-08 15:35] LABS: INR 1.13 (0.9-1.15); Partial Thromboplastin Time 59.4 sec (23.64-32.05)
--- NOTE | 2019-05-08 16:30 | NUR ---
DR SPAIN VISITS AND EXAMINES PATIENT - NO NEW ORDERS RECEIVED.
[2019-05-08] MEDS: DAPTOmycin 500 MG in SODIUM CHL 0.9% 50 ML IV SCH (17:45)
[2019-05-08] MEDS: MICAFUNGIN SODIUM 100 MG in SODIUM CHL 0.9% 100 ML IV SCH (18:00)
[2019-05-08] MEDS: ALBUTEROL SULF 2.5 MG/0.5ML(0.5%) NEB SOLN NEB SCH ×2 (18:24→22:22)
[2019-05-08] MEDS: ACETYLCYSTEINE 20%(200MG/ML) SOL 4ML NEB SCH ×2 (18:24→22:22)
[2019-05-08] MEDS: IPRATROPIUM BROM 0.5 MG/2.5ML INH SOL NEB SCH ×2 (18:24→22:22)
[2019-05-08] MEDS: AMIODARONE HCL 900 MG in DEXTROSE 500 ML IV SCH (18:54)
--- NOTE | 2019-05-08 19:40 | NUR ---
open assumed care of female pt orally intubated. pt is connected to icu monitors. vs are stable. rr are equal and unlabored. no ss of distress noted at this time. pt has a patent rij triple lumen, dressing is clean and dry no ss of redness or swelling noted.pt has generalized edema. pt has sullivan hanging below bladder draining to gravity. pillows are in place to offload pressure of ceci prominences for comfort and safety. patient has [place] boots on bilaterally. bed is in the lowest position, wheels locked hob 30*, side rails up x3, pt is in full view of rn station. will continue to care for and monitor.
[2019-05-08] MEDS ORDERED: TPN PER PHARMACY IV NR ×10 (20:00)
--- NOTE | 2019-05-08 20:00 | NUR ---
pt family at bedside
--- NOTE | 2019-05-08 20:17 | NUR ---
pts vs remain stable during care and turns. pt slightly grimaces during care but vs remain stable. will continue to care for and monitor
[2019-05-08] MEDS: BUMETANIDE INJECTION 25 MG in GIVE UN-DILUTED 0 ML IV SCH (20:27)
--- NOTE | 2019-05-08 21:15 | NUR ---
poc reviewed with son pt son at bedside. poc reviewed with son. pts current status and vs reviewed and explained to son. son verbalized understanding. all questions and concerns addressed at this time. pt son stated he has no other questions.
[2019-05-08 21:33] LABS: INR 1.14 (0.9-1.15); Partial Thromboplastin Time 54.1 sec (23.64-32.05)
--- NOTE | 2019-05-08 22:45 | NUR ---
Respiratory note: SWITCHED PT TO ESPRIT V11 VENT AT THIS TIME DUE TO ALARM ON OTHER VENT
[2019-05-09] VITALS (104 sets, daily range): BP systolic 76–137; BP diastolic 33–83
[2019-05-09] MEDS: AMIODARONE HCL 900 MG in DEXTROSE 500 ML IV SCH (00:13)
--- NOTE | 2019-05-09 00:30 | NUR ---
no insulin pt bs determined no insulin needed at this time according to the prescribed insulin protocol for this pt.
[2019-05-09] MEDS ORDERED: fentaNYL Drip 2500mCg/250mlNS 250 ML IV ONE (00:57)
--- NOTE | 2019-05-09 01:36 | NUR ---
OPTIFOAM DRESSING CHANGED OPTIFOAM DRESSING ON PT L LEG DIRTY, WOUND CLEANED AND NEW OPTIFOAM DRESSING APPLIED USING CLEAN TECHNIQUE.
[2019-05-09] MEDS: ALBUTEROL SULF 2.5 MG/0.5ML(0.5%) NEB SOLN NEB SCH ×6 (02:25→22:13)
[2019-05-09] MEDS: IPRATROPIUM BROM 0.5 MG/2.5ML INH SOL NEB SCH ×6 (02:25→22:13)
[2019-05-09] MEDS: ACETYLCYSTEINE 20%(200MG/ML) SOL 4ML NEB SCH ×6 (02:25→22:13)
--- NOTE | 2019-05-09 02:49 | NUR ---
Respiratory note: CHANGED CIRCUIT TO REGULAR CIRCUIT WITH NO HEATED WIRE WITH HME DUE TO VENT ALARM FOR OCCLUSION. PT BAGGED WITH 100% FIO2 VIA BAG MASK. WATER WAS DRAINING INTO CIRCUIT CAUSING TOTAL OCCLUSION Addendum: 05/09/19 at 0442 by TRAVIS MITCHELL RT CHARTED FOR WRONG PT
--- NOTE | 2019-05-09 03:00 | NUR ---
HYGIENE BED BATH PROVIDED, full JOE CHANGE PROVIDED. PT TOLERATED CARE. VS STABLE
--- NOTE | 2019-05-09 04:16 | NUR ---
pts vs remain stable during care and turns. pt slightly grimaces during care but vs remain stable. will continue to care for and monitor
[2019-05-09 04:30] LABS: Albumin 1.3 g/dL (3.4-5.0); Calcium 8.1 mg/dL (8.5-10.1); Magnesium 2.4 mg/dL (1.6-2.6); Potassium 4.1 mmol/L (3.5-5.1)
[2019-05-09 04:33] LABS: Bilirubin, Total 0.2 mg/dL (0.2-1.0); Phosphorus 4.8 mg/dL (2.5-4.90); Total Protein 5.7 g/dL (6.4-8.2)
--- NOTE | 2019-05-09 05:00 | NUR ---
suction canisters and suction tubing changed
[2019-05-09] MEDS: SODIUM CHL 0.9% IV SCH ×3 (06:00→22:22)
[2019-05-09] MEDS: ACCU-CHEK COMFORT CURVE STRIP VI SCH ×4 (06:00→17:36)
[2019-05-09] MEDS: InsuLIN REG 1unit/0.01ml Soln (100units/ml) SC SCH ×4 (06:00→17:36)
[2019-05-09] MEDS: CEFTAZIDIME AVIBACTAM IV SCH ×3 (06:00→22:22)
--- NOTE | 2019-05-09 06:15 | NUR ---
no insulin pt bs requires no insulin is needed at this time, according to the prescribed insulin protocol for this pt.
--- NOTE | 2019-05-09 07:25 | NUR ---
end note report given and care endorsed to Michael PARIKH,
[2019-05-09] MEDS: fentaNYL Drip 2500mCg/250mlNS 250 ML IV SCH ×3 (08:17→23:40)
[2019-05-09 09:19] LABS: Basophils # (auto) 0.1 uL; Eosinophils # (auto) 0.4 uL; Hemoglobin 7.6 g/dL (12.2-16.2); Monocytes # (auto) 0.9 uL; Neutrophils % (auto) 71.5 % (37.0-80.0)
[2019-05-09 09:22] LABS: Basophils % (auto) 0.9 % (0.0-2.0); Eosinophils % (auto) 2.7 % (0.0-7.0); Hematocrit 23.8 % (36.0-46.0); Lymphocytes # (auto) 2.9 uL; Mean Corpuscular Hemoglobin 28.5 pg (28.0-32.0); Mean Corpuscular Hgb Conc. 32.2 g/dL (32.0-36.0); Mean Corpuscular Volume 88.7 fL (80.0-100.0); Monocytes % (auto) 5.9 % (0.0-12.0); Neutrophils # (auto) 11.1 uL; Platelet Count (auto) 400 10^3/uL (140-450); Red Blood Cells 2.68 10^6/uL (4.0-5.20); Red Cell Distribution Width 16.7 % (11.8-14.3); White Blood Cell 15.5 10^3/uL (4.4-10.8)
[2019-05-09 09:32] LABS: INR 1.12 (0.9-1.15); Partial Thromboplastin Time 39.3 sec (23.64-32.05)
[2019-05-09] MEDS: MICAFUNGIN SODIUM 100 MG in SODIUM CHL 0.9% 100 ML IV SCH (09:45)
--- NOTE | 2019-05-09 09:45 | NUR ---
HEPARIN INCREASED PER PROTOCOL
[2019-05-09] MEDS: acetaZOLAMIDE SODIUM 500 MG VL IV SCH ×2 (09:46→22:00)
[2019-05-09] MEDS: SODIUM CHLOR 0.9% PF (SALINE LOCK) 10ML VIAL/SYR IV SCH ×2 (09:46→22:22)
[2019-05-09] MEDS: PANTOPRAZOLE 40 MG/10 ML VIAL INJ IV SCH ×2 (10:05→21:21)
--- NOTE | 2019-05-09 10:45 | NUR ---
DR. ECKERT AT BEDSIDE
[2019-05-09] MEDS: PROPOFOL 100 ML IV SCH (11:44)
[2019-05-09] MEDS: HEPARIN DRIP/D5W 100UNITS/ML 250 ML IV SCH (12:45)
--- NOTE | 2019-05-09 13:42 | NUR ---
Nutrition Follow-up Notes Wt.: 85.6 kg today. Noted 14.4 kg weight loss in last 3 days likely d/t ? fluid loss aeb negative I & Os for past few days. Pt's in isolation room, intubated, sedated, remains NPO, currently on TPN @ 73 m/hr providing 1850 kcal, 90 gms pro, 1490 NPCs and 16% Fat. Pt with adequate PN support d/t high initiation rate delivery of concentrated formula aeb current PN infusion meets 94% to 99% of est caloric needs, however meets 71% to 96% of est protein needs. Noted pt's for receive tonight another TPN at same rate and nutrient concentration. Est. Needs ABW [id number] kcal (23-25 kcal/kgBW), 94-126 gms pro (1.2-1.6 gms/kgBW reassessed d/t severe hypoalbuminemia). Will continue to monitor pertinent labs and reassess nutrient need prn Labs: BUN 60 H, Ca 8.1 L, AST 45 H, Tpro 5.7 L, Alb 1.3 L; Tpro 4.2 L, Trig 47 wnl. Skin: Yasir scale 11, high risk, pt's multiple pressure area/wounds per delicate fabrics presser. Pls refer to latest marine air ground task force planners's notes for further details re: tx plans. GI: Pt had 1 BM 04/30/19 per delicate fabrics presser. PES: Increased nutrient needs r/t current medical condition aeb intubated sedated with order of NPO Altered nutrition related lab values r/t current/chronic medical condition aeb hyperglycemia, hyponatremia, hypokalemia, hyperchloremia, elev. BUN, Trop I, HbA1c, LFTs, hyperbilirubinemia, hypocalcemia and mod hypoalbuminemia Will continue to monitor NPO status, PN tolerance, pertinent labs, skin status and weight trends. F/u in 2 to 3 days. Additional Recommendation: 1.) If remains NPO with PN support consider gradual increase on protein that meet at least 75% of est nutrient needs. 2.) Advance gradually to oral diet (per ST's diet texture recommendation) or consider EN support if medically appropriate. 3.) Refer to RD for further nutrition educ. and weight monitoring upon discharge. 4.) Continue current plan of care.
--- NOTE | 2019-05-09 14:25 | NUR ---
PARTIAL LINEN CHANGE PERFORMED AT THIS TIME
[2019-05-09 14:44] LABS: INR 1.11 (0.9-1.15); Partial Thromboplastin Time 58.9 sec (23.64-32.05)
--- NOTE | 2019-05-09 14:50 | NUR ---
PTT 58.9 NO CHANGE IN HEPARIN PER PROTOCOL
[2019-05-09] MEDS: NOREPINEPHRINE 8 MG/250ML KIT 250 ML IV SCH (16:15)
--- NOTE | 2019-05-09 16:26 | NUR ---
FAMILY AT BEDSIDE. UPDATED ON PATIENT STATUS. ALL QUESTIONS AND CONCERNS ADDRESSED AT THIS TIME
[2019-05-09] MEDS: DAPTOmycin 500 MG in SODIUM CHL 0.9% 50 ML IV SCH (16:50)
[2019-05-09] MEDS: MIDAZOLAM DRIP 50 mg/50mL 50 ML IV SCH (17:54)
[2019-05-09] MEDS: BUMETANIDE INJECTION 25 MG in GIVE UN-DILUTED 0 ML IV SCH (17:55)
--- NOTE | 2019-05-09 19:21 | NUR ---
REPORT GIVEN TO VALENTE PARIKH TO ASSUME CARE
--- NOTE | 2019-05-09 19:30 | NUR ---
OPEN NOTES Assumed care of patient. Received report from KATI Rodriguez. Patient is sedated with IV Versed and IV Fentanyl. Patient is trying to open eyes when called. Noted movement on right hand more than left. Intubated on AC mode, saturating 100%. Suctioned done more on oral than ETT. Lung sounds clear diminished. On IV Levophed, IV Amiodarone, and IV Heparin. ECG on Atrial Fibrillation. HR 90-115/min. BP stable. will try to wean down IV Levophed. Patient's NGT was pulled out yesterday as it was malpositioned according to day shift RN and was not re-inserted. Patient is not on any oral medication or tube feeding at the moment. On IV TPN infusion for nutrition. Matson catheter in placed - urine pouring out,patient is on IV Bumex drip Skin noted with multiple pressure sores - refer skin and wound assessment in the intervention Left arm swollen -elevated Right IJ TLC and Right upper arm PICC line noted-dressing dry and intact Full assessment - refer interventions will continue to monitor PRN
[2019-05-09] MEDS ORDERED: POTASSIUM CHLORIDE IV NR ×9 (20:00)
[2019-05-09] MEDS ORDERED: FAT EMULSION IV NR ×9 (20:00)
[2019-05-09] MEDS ORDERED: SODIUM CHLORIDE IV NR ×9 (20:00)
[2019-05-09] MEDS ORDERED: [UNRECOGNIZED DRUG - OTHER] IV NR ×9 (20:00)
--- NOTE | 2019-05-09 20:30 | NUR ---
Family updated on pt status Patient's son Gilbert updated on patient's status and condition. All questions and concerns addressed. verbalized understanding. He said his father still hasn't decided with regards to terminal weaning.
[2019-05-09 20:42] LABS: INR 1.14 (0.9-1.15); Partial Thromboplastin Time 61.1 sec (23.64-32.05)
--- NOTE | 2019-05-09 21:00 | NUR ---
PTT/HEPARIN PTT 61.1 secs No change/bolus as per protocol Kept at current rate
--- NOTE | 2019-05-09 22:20 | NUR ---
DIAMOX NOT GIVEN Diamox not available in [facility]. Tried calling pharmacy but no one's answering Patient is with ongoing IV Bumex drip, urine output is adequate will inform pharmacy and MD in AM
[2019-05-10] VITALS (102 sets, daily range): BP systolic 76–147; BP diastolic 36–75
[2019-05-10] MEDS: ACCU-CHEK COMFORT CURVE STRIP VI SCH ×5 (00:48→23:49)
[2019-05-10] MEDS: InsuLIN REG 1unit/0.01ml Soln (100units/ml) SC SCH ×5 (00:51→23:49)
--- NOTE | 2019-05-10 02:00 | NUR ---
SEDATION Patient is more awake now, eyes open. Grimacing, asked if in pain and patient nodded IV Fentanyl increased back to 200mcg/hr will continue to monitor
[2019-05-10] MEDS: HEPARIN DRIP/D5W 100UNITS/ML 250 ML IV SCH ×2 (02:15→22:54)
--- NOTE | 2019-05-10 02:20 | NUR ---
blood specimen sent for lab tests
[2019-05-10] MEDS: ALBUTEROL SULF 2.5 MG/0.5ML(0.5%) NEB SOLN NEB SCH ×6 (02:36→21:56)
[2019-05-10] MEDS: IPRATROPIUM BROM 0.5 MG/2.5ML INH SOL NEB SCH ×6 (02:36→21:57)
[2019-05-10] MEDS: ACETYLCYSTEINE 20%(200MG/ML) SOL 4ML NEB SCH ×6 (02:36→21:56)
[2019-05-10 02:54] LABS: Basophils # (auto) 0.1 uL; Basophils % (auto) 0.6 % (0.0-2.0); Eosinophils # (auto) 0.4 uL; Monocytes # (auto) 0.7 uL
[2019-05-10 02:56] LABS: Hematocrit 21.2 % (36.0-46.0); Lymphocytes # (auto) 2.7 uL; Lymphocytes % (auto) 19.8 % (10.0-50.0); Mean Corpuscular Hemoglobin 28.9 pg (28.0-32.0); Mean Corpuscular Hgb Conc. 32.7 g/dL (32.0-36.0); Mean Corpuscular Volume 88.2 fL (80.0-100.0); Neutrophils # (auto) 9.9 uL; Neutrophils % (auto) 71.6 % (37.0-80.0); Platelet Count (auto) 338 10^3/uL (140-450); Red Cell Distribution Width 16.7 % (11.8-14.3); White Blood Cell 13.7 10^3/uL (4.4-10.8)
[2019-05-10 03:14] LABS: Albumin 1.2 g/dL (3.4-5.0); BUN/Creatinine Ratio 92.4; Calcium 7.7 mg/dL (8.5-10.1); INR 1.16 (0.9-1.15); Magnesium 2.5 mg/dL (1.6-2.6); Partial Thromboplastin Time 59.8 sec (23.64-32.05); Potassium 3.5 mmol/L (3.5-5.1)
[2019-05-10 03:16] LABS: Bilirubin, Total 0.2 mg/dL (0.2-1.0); Total Protein 5.6 g/dL (6.4-8.2)
[2019-05-10] MEDS: NOREPINEPHRINE 8 MG/250ML KIT 250 ML IV SCH (03:24)
--- NOTE | 2019-05-10 03:35 | NUR ---
PTT/HEPARIN PTT 59.8secs No change/bolus as per protocol Kept at current rate
[2019-05-10 03:40] LABS: Hemoglobin 6.9 g/dL (12.2-16.2)
--- NOTE | 2019-05-10 04:00 | NUR ---
Patient bathe/linen change Patient cleaned with CHG wipes. Skin integrity assessed for any changes. Linens changed. Patient repositioned for comfort.
--- NOTE | 2019-05-10 04:22 | NUR ---
LUBA SHORE FOR CRITICAL HEMOGLOBIN RESULT
--- NOTE | 2019-05-10 04:30 | NUR ---
RIGHT IJ CENTRAL LINE AND RIGHT UPPER PICC LINE DRESSING CHANGED ASEPTICALLY
--- NOTE | 2019-05-10 05:40 | NUR ---
PATIENT'S SON CALLED TWICE BUT UNABLE TO ANSWER THE PHONE I WAS BUSY INSIDE THE PATIENT'S ROOM CHANGING DRESSINGS AND CLEANING PATIENT WILL RETURN HIS CALL ONCE IM FREE
[2019-05-10] MEDS: AMIODARONE HCL 900 MG in DEXTROSE 500 ML IV SCH (05:45)
[2019-05-10] MEDS: CEFTAZIDIME AVIBACTAM IV SCH ×3 (05:48→21:45)
[2019-05-10] MEDS: SODIUM CHL 0.9% IV SCH ×3 (05:48→21:45)
--- NOTE | 2019-05-10 05:58 | NUR ---
CALLED SON FOR UPDATE CALLED PATIENT'S SON ALLISON AT [phone]. CORRECT PASSWORD BY GIVEN BY THE SON. UPDATED HIM OF LATEST HEMOGLOBIN AND PATIENT'S CONDITION. VERBALIZED UNDERSTANDING
--- NOTE | 2019-05-10 07:00 | NUR ---
REPORT REPORT GIVEN TO KATI AGUIRRE
--- NOTE | 2019-05-10 08:00 | NUR ---
SBAR REPORT RECEIVED FROM [facility] RAFA VICTOR AT THIS TIME. AM ASSESSMENT PERFORMED (SEE [id number] FOR MORE DETAILS), VSS. MD SHORE CALLED AND MADE AWARE OF ALL ABNORMAL LAB VALUES. NEW ORDERS GIVEN AND IMPLEMENTED.
--- NOTE | 2019-05-10 08:30 | NUR ---
MD SHORE AT BEDSIDE. UPDATED MD WITH PT OVERALL STATUS INCLUDING ABNORMAL LAB VALUES. NEW ORDERS GIVEN AND IMEPLEMENTED, VSS.
[2019-05-10] MEDS: PANTOPRAZOLE 40 MG/10 ML VIAL INJ IV SCH ×2 (09:00→21:28)
--- NOTE | 2019-05-10 09:00 | NUR ---
PT'S LILI AT BEDSIDE. UPDATED FAMILY WITH PT OVERALL STATUS. NO FURTHER QUESTIONS AT THIS TIME, FAMILY VERBALIZED UNDERSTANDING WITH POC, VSS.
[2019-05-10] MEDS ORDERED: FUROSEMIDE 20 MG/2 ML VIAL IV ONE ×2 (09:30→11:30)
[2019-05-10] MEDS ORDERED: POTASSIUM CHL 20MEQ/100ML 100 ML IV ONE (09:45)
[2019-05-10] MEDS: acetaZOLAMIDE SODIUM 500 MG VL IV SCH ×2 (09:57→21:36)
[2019-05-10] MEDS: MICAFUNGIN SODIUM 100 MG in SODIUM CHL 0.9% 100 ML IV SCH (09:58)
[2019-05-10] MEDS: SODIUM CHLOR 0.9% PF (SALINE LOCK) 10ML VIAL/SYR IV SCH ×2 (09:59→21:46)
--- NOTE | 2019-05-10 10:45 | NUR ---
PT HAS ORDERS TO TRANSFUSE 2 UNITS OF PRBC'S. STARTED 1ST UNIT AT THIS TIME WITH 0 COMPLICATIONS NOTED, VSS.
[2019-05-10] MEDS: PROPOFOL 100 ML IV SCH (11:44)
--- NOTE | 2019-05-10 12:00 | NUR ---
LEVOPHED GTT OFF AT THIS TIME. SBP >90. VSS.
--- NOTE | 2019-05-10 12:00 | NUR ---
WOUND CARE NOTE: IN TO SEE PATIENT AT THIS TIME FOR WOUND RE-EVALUATION. SPOUSE IS AT BEDSIDE. SPOUSE STATES THAT PATIENT SPENT MORE THAN 21 DAYS AT AN [facility], AND WAS EVENTUALLY TRANSFERRED TO THIS FACILITY. SHE REMAINS INTUBATED, SEDATED. PATIENT CONTINUES TO REST ON SPECIALTY AIR MATTRESS/BED. PATIENT'S MULTIPLE PRESSURE ULCERS CONTINUE TO EVOLVE, WITH DTI'S NOW EVOLVED TO THAT OF STAGE 2 OR 3 ULCERS. PATIENT CONTINUES TO HAVE UNSTAGEABLE PRESSURE ULCERS TO RIGHT HEEL, MEDIAL BACK, AND LEFT LOWER LUMBAR BACK. NEW WOUND PHOTOS TAKEN AT THIS TIME FOR REFERENCE. APPLIED THERAHONEY GAUZE TO ALL OPEN WOUND BED AREAS FOR AUTOLYTIC DEBRIDEMENT, COVERED ALL OPEN WOUNDS WITH OPTIFOAM GENTLE DRESSINGS PER MD ORDER. UPDATED SKIN/WOUND CARE PLAN. RECOMMEND: CONTINUATION WITH ALL WOUND CARE ORDERS PREVIOUSLY PRESCRIBED BY MD. WOUND CARE TEAM WILL CONTINUE TO MONITOR. Addendum: 05/10/19 at 1521 by Bren Mcfarlane RN Amended: Links added.
--- NOTE | 2019-05-10 12:30 | NUR ---
VISITOR SERVICES ASSOCIATE AT BEDSIDE. ASSISTED RN WITH TAKING PICTURES. NEW DSG'S PLACED, SEE UPDATED PICTURES. VSS. PT TOLERATED PROCEDURE WELL SHE COULD (PT RESISTS TURNS DUE TO PAIN TO RIGHT SHOULDER).VSS.
--- NOTE | 2019-05-10 12:50 | NUR ---
1ST UNIT OF BLOOD DONE WITH 0 COMPLICATIONS NOTED, STARTED 2ND UNIT OF PRBC'S ORDERED. VSS.
--- NOTE | 2019-05-10 13:30 | NUR ---
PT CONTINUES TO BE RESTLESS DESPITE THE CONTINUOUS FENTANYL GTT. SPOKE WITH MD ECKERT ABOUT PT'S OVERALL STATUS (PT APPEARS RESTLESS AND IN PAIN, PT NEEDS SEDATION FOR COMFORT). NEW ORDERS GIVEN AND IMPLEMENTED, PER MD ECKERT, HE IS OK WITH STARTING PT BACK ON VERSED GTT FOR COMFORT MEASURES. VSS. LILI AT BEDSIDE AND REQUESTS MORE COMFORT MEASURES FOR PT ( IS OK WITH VERSED GTT BACK ON).
--- NOTE | 2019-05-10 14:40 | NUR ---
PT COMPLETED 2ND UNIT OF BLOOD WITH 0 COMPLICATIONS NOTED, VSS.
--- NOTE | 2019-05-10 15:28 | NUR ---
MD ECKERT AT BEDSIDE. UPDATED MD ON PT OVERALL STATUS. MD SPOKE WITH ABOUT POC AND POSSIBLE TERMINAL WEAN WHEN FAMILY IS READY. LILI VERBALIZED UNDERSTANDING AND STATES HE WILL TRY AND MAKE A DECISION BY THURSDAY OF THIS WEEK. FAMILY UNDERSTANDS PT'S POOR PROGNOSIS AND IS ACCEPTING AT THIS TIME HOWEVER, FAMILY NOT READY TO MAKE DECISION TO TERMINAL WEAN YET.
--- NOTE | 2019-05-10 16:00 | NUR ---
Respiratory note: UNABLE TO DO FINAL VENTILATOR CHECK DUE TO EMERGENCY IN ICU. ENDORSED INFORMATION TO ARCHITECTURE ANALYST.
[2019-05-10] MEDS: DAPTOmycin 500 MG in SODIUM CHL 0.9% 50 ML IV SCH (17:19)
--- NOTE | 2019-05-10 19:45 | NUR ---
OPEN NOTES Assumed care of patient. Patient is sedated with IV Versed and IV Fentanyl. Pupils both reactive to light. 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 Intubated on AC mode, saturating 100%. Suctioned done more on oral than ETT. Lung sounds clear diminished. Remained on IV Amiodarone, and IV Heparin. ECG on Atrial Fibrillation. HR 80-100/min. BP stable. On IV TPN infusion for nutrition.As per day shift RN, MDs noted patient not having NGT. Matson catheter in placed with yellowish urine out with sediments Skin noted with multiple pressure sores - refer skin and wound assessment in the intervention Left arm swollen -elevated Right IJ TLC and Right upper arm PICC line noted-dressing dry and intact Full assessment - refer interventions will continue to monitor PRN
[2019-05-10] MEDS ORDERED: TPN PER PHARMACY IV NR ×8 (20:00)
--- NOTE | 2019-05-10 21:50 | NUR ---
Family updated on pt status Patient's son Gilbert called. Correct password obtained. Updated on patient's status and condition. All questions and concerns addressed. verbalized understanding.
[2019-05-11] VITALS (88 sets, daily range): BP systolic 79–120; BP diastolic 28–89
[2019-05-11] MEDS: fentaNYL Drip 2500mCg/250mlNS 250 ML IV SCH ×2 (00:20→11:47)
[2019-05-11] MEDS: ACETYLCYSTEINE 20%(200MG/ML) SOL 4ML NEB SCH ×6 (02:00→22:17)
[2019-05-11] MEDS: IPRATROPIUM BROM 0.5 MG/2.5ML INH SOL NEB SCH ×6 (02:00→22:16)
[2019-05-11] MEDS: ALBUTEROL SULF 2.5 MG/0.5ML(0.5%) NEB SOLN NEB SCH ×6 (02:00→22:16)
--- NOTE | 2019-05-11 03:30 | NUR ---
Patient bathe/linen change Patient cleaned with CHG wipes. Skin integrity assessed for any changes. Linens changed. Patient repositioned for comfort.
[2019-05-11 04:45] LABS: Eosinophils # (auto) 0.3 uL; Mean Corpuscular Hgb Conc. 32.3 g/dL (32.0-36.0); Monocytes # (auto) 0.5 uL
[2019-05-11 04:47] LABS: Basophils # (auto) 0.1 uL; Basophils % (auto) 0.5 % (0.0-2.0); Eosinophils % (auto) 2.2 % (0.0-7.0); Hematocrit 26.2 % (36.0-46.0); Hemoglobin 8.5 g/dL (12.2-16.2); Lymphocytes # (auto) 1.9 uL; Lymphocytes % (auto) 15.9 % (10.0-50.0); Mean Corpuscular Hemoglobin 29.1 pg (28.0-32.0); Mean Corpuscular Volume 90.2 fL (80.0-100.0); Monocytes % (auto) 3.9 % (0.0-12.0); Neutrophils # (auto) 9.5 uL; Neutrophils % (auto) 77.5 % (37.0-80.0); Platelet Count (auto) 282 10^3/uL (140-450); White Blood Cell 12.2 10^3/uL (4.4-10.8)
[2019-05-11 04:52] LABS: Albumin 1.1 g/dL (3.4-5.0); Magnesium 2.1 mg/dL (1.6-2.6); Potassium 3.7 mmol/L (3.5-5.1)
[2019-05-11 04:58] LABS: BUN/Creatinine Ratio 90.5; Bilirubin, Total 0.3 mg/dL (0.2-1.0); Phosphorus 3.5 mg/dL (2.5-4.90); Total Protein 5.2 g/dL (6.4-8.2)
[2019-05-11 05:02] LABS: INR 1.19 (0.9-1.15)
[2019-05-11 05:20] LABS: Partial Thromboplastin Time 72.4 sec (23.64-32.05)
--- NOTE | 2019-05-11 05:31 | NUR ---
PTT/HEPARIN PTT 72.4secs No change/bolus as per protocol Kept at current rate
[2019-05-11] MEDS: CEFTAZIDIME AVIBACTAM IV SCH ×3 (05:58→22:37)
[2019-05-11] MEDS: ACCU-CHEK COMFORT CURVE STRIP VI SCH ×3 (05:58→18:30)
[2019-05-11] MEDS: SODIUM CHL 0.9% IV SCH ×3 (05:58→22:37)
[2019-05-11] MEDS: InsuLIN REG 1unit/0.01ml Soln (100units/ml) SC SCH ×3 (06:09→18:00)
--- NOTE | 2019-05-11 06:38 | NUR ---
CALLED SON FOR UPDATE CALLED PATIENT'S SON ALLISON. CORRECT PASSWORD BY GIVEN BY THE SON. UPDATED HIM OF PATIENT'S CONDITION. VERBALIZED UNDERSTANDING
--- NOTE | 2019-05-11 07:25 | NUR ---
OPENING NOTE SHIFT REPORT RECEIVED AND ASSUMED CARE OF PT FROM VALENTE PARIKH
[2019-05-11] MEDS: PANTOPRAZOLE 40 MG/10 ML VIAL INJ IV SCH ×2 (09:44→22:36)
[2019-05-11] MEDS: MICAFUNGIN SODIUM 100 MG in SODIUM CHL 0.9% 100 ML IV SCH (09:48)
[2019-05-11] MEDS: SODIUM CHLOR 0.9% PF (SALINE LOCK) 10ML VIAL/SYR IV SCH ×2 (09:53→22:00)
--- NOTE | 2019-05-11 10:00 | NUR ---
LEVO RE-STARTED DUE TO LOW BP
[2019-05-11] MEDS: acetaZOLAMIDE SODIUM 500 MG VL IV SCH ×2 (10:07→22:39)
--- NOTE | 2019-05-11 11:38 | NUR ---
Nutrition Follow-up Notes Wt.: 85.0 kg Pt's in isolation room, intubated, sedated, remains NPO, currently on TPN @ 75 m/hr providing 1950 kcal, 90 gms pro, 1390 NPCs. Pt with adequate PN support d/t high initiation rate delivery of concentrated formula aeb current PN infusion meets 98% to 104% of est caloric needs, however meets 71% to 96% of est protein needs. Est. Needs ABW [id number] kcal (23-25 kcal/kgBW), 94-126 gms pro (1.2-1.6 gms/kgBW reassessed d/t severe hypoalbuminemia). Will continue to monitor pertinent labs and reassess nutrient need prn Labs: BUN 67 H, CA 8.0 L, ALB 1.1 L, GLU 161 H Skin: Yasir scale 12, high risk, pt's multiple pressure area/wounds per miter operator. Pls refer to latest baker operator automatic's notes for further details re: tx plans. GI: Pt had 1 BM 04/30/19 per miter operator. PES: Increased nutrient needs r/t current medical condition aeb intubated sedated with order of NPO Altered nutrition related lab values r/t current/chronic medical condition aeb hyperglycemia, hyponatremia, hypokalemia, hyperchloremia, elev. BUN, Trop I, HbA1c, LFTs, hyperbilirubinemia, hypocalcemia and mod hypoalbuminemia Will continue to monitor NPO status, PN tolerance, pertinent labs, skin status and weight trends. F/u in 2 to 3 days. Additional Recommendation: 1.) If remains NPO with PN support consider gradual increase on protein that meet at least 75% of est nutrient needs. 2.) Advance gradually to oral diet (per ST's diet texture recommendation) or consider EN support if medically appropriate. 3.) Refer to RD for further nutrition educ. and weight monitoring upon discharge. 4.) Continue current plan of care.
[2019-05-11] MEDS: PROPOFOL 100 ML IV SCH (11:44)
--- NOTE | 2019-05-11 16:00 | NUR ---
VERSED RE-STARTED DUE TO PT GRIMACING AND UNCOMFORTABLE
--- NOTE | 2019-05-11 18:01 | NUR ---
Respiratory note: RECEIVED PT ON VENT V11, VENT CONNECTED TO RED OUTLET AND O2 SOURCE. ALARMS ARE SET AND AUDIBLE. AMBU BAG AND MASK AT BEDSIDE. BS AR FINE COURSE SXD SCANT THICK CORDOVA. MED NEB TX GIVEN INLINE WITHOUT ADVERSE REACTION NOTED. RT NAME AND PAGER ASSIGNMENT WRITTEN ON PTS ROOM BOARD WILL CONTINUE TO MONITOR Q2H AND NEEDED. PTS FAMILY AT BEDSIDE.
[2019-05-11] MEDS: DAPTOmycin 500 MG in SODIUM CHL 0.9% 50 ML IV SCH (18:18)
[2019-05-11] MEDS: HEPARIN DRIP/D5W 100UNITS/ML 250 ML IV SCH (18:25)
[2019-05-11] MEDS: MIDAZOLAM DRIP 50 mg/50mL 50 ML IV SCH (18:34)
--- NOTE | 2019-05-11 19:05 | NUR ---
CLOSING NOTE SHIFT REPORT GIVEN AND CARE ENDORSED TO BILL PARIKH
--- NOTE | 2019-05-11 19:30 | NUR ---
Opening Shift Note Received pt on mechanical ventilator, on fentanyl and versed gtt. Pt opens eyes spontaneously but does not follow commands, grimaces to touch and any stimulation. Full assessment done, see interventions. Right IJ TLC all ports patent with good blood return. FACUNDO PICC line site benign all ports patent. See IV spreadsheet for details. Palpable pulses to all extremities. Pt repositioned and skin/wound assessment complete, see interventions. No S/S of distress noted. Bed locked in lowest position, all alarms on and audible. Pt in full view of RN.
[2019-05-11] MEDS ORDERED: TPN PER PHARMACY IV NR ×9 (20:00)
--- NOTE | 2019-05-11 20:09 | NUR ---
Respiratory note: AT BEDSIDE FOR ROUTINE VENT CHECK NO CHANGES MADE AT THIS TIME. PTS SON AT BEDSIDE. WILL CONTINUE TO MONITOR.
[2019-05-12] VITALS (96 sets, daily range): BP systolic 85–127; BP diastolic 26–74
[2019-05-12] MEDS: ACCU-CHEK COMFORT CURVE STRIP VI SCH ×5 (00:24→23:48)
[2019-05-12] MEDS: ALBUTEROL SULF 2.5 MG/0.5ML(0.5%) NEB SOLN NEB SCH ×6 (02:11→22:27)
[2019-05-12] MEDS: ACETYLCYSTEINE 20%(200MG/ML) SOL 4ML NEB SCH ×6 (02:11→22:27)
[2019-05-12] MEDS: IPRATROPIUM BROM 0.5 MG/2.5ML INH SOL NEB SCH ×6 (02:11→22:27)
[2019-05-12 04:24] LABS: INR 1.15 (0.9-1.15); Partial Thromboplastin Time 63.1 sec (23.64-32.05)
--- NOTE | 2019-05-12 04:40 | NUR ---
FAMILY SON CALLED FOR AN UPDATE. AFTER PASSWORD WAS PROVIDED, UPDATE WAS GIVEN AND ALL QUESTIONS AND CONCERNS ADDRESSED AT THIS TIME.
[2019-05-12 04:49] LABS: Albumin 1.2 g/dL (3.4-5.0); Magnesium 2.1 mg/dL (1.6-2.6); Potassium 3.7 mmol/L (3.5-5.1)
[2019-05-12 04:54] LABS: BUN/Creatinine Ratio 81.6; Bilirubin, Total 0.2 mg/dL (0.2-1.0); Phosphorus 3.4 mg/dL (2.5-4.90); Total Protein 5.6 g/dL (6.4-8.2)
--- NOTE | 2019-05-12 05:00 | NUR ---
CARES/WOUND CARE FULL BED BATH AND COMPLETE LINEN CHANGE AT THIS TIME. WOUND TO SACRUM CLEANSED AND PLACED WITH THERA HONEY STRIP AND PLACED NEW OPTIFOAMS. PT REPOSITIONED FOR COMFORT. PT GRIMACED WHEN TURNING BUT TOLERATED WELL. CONTINUE CARE.
[2019-05-12] MEDS: InsuLIN REG 1unit/0.01ml Soln (100units/ml) SC SCH ×5 (05:35→23:49)
[2019-05-12] MEDS: SODIUM CHL 0.9% IV SCH (05:35)
[2019-05-12] MEDS: CEFTAZIDIME AVIBACTAM IV SCH (05:35)
--- NOTE | 2019-05-12 07:10 | NUR ---
OPENING NOTE SHIFT REPORT GET BACK AND ASSUMED CARE OF PT FROM BILL PARIKH
[2019-05-12] MEDS: PANTOPRAZOLE 40 MG/10 ML VIAL INJ IV SCH ×3 (08:54→21:38)
[2019-05-12] MEDS: MIDAZOLAM DRIP 50 mg/50mL 50 ML IV SCH (08:55)
[2019-05-12] MEDS: MICAFUNGIN SODIUM 100 MG in SODIUM CHL 0.9% 100 ML IV SCH (10:48)
[2019-05-12] MEDS: SODIUM CHLOR 0.9% PF (SALINE LOCK) 10ML VIAL/SYR IV SCH ×2 (10:49→21:30)
[2019-05-12] MEDS: acetaZOLAMIDE SODIUM 500 MG VL IV SCH ×3 (10:49→21:39)
[2019-05-12] MEDS: PROPOFOL 100 ML IV SCH (11:44)
[2019-05-12] MEDS: AMIODARONE HCL 900 MG in DEXTROSE 500 ML IV SCH ×2 (13:28→18:54)
[2019-05-12] MEDS: fentaNYL Drip 2500mCg/250mlNS 250 ML IV SCH (13:32)
[2019-05-12] MEDS: NOREPINEPHRINE 8 MG/250ML KIT 250 ML IV SCH ×2 (16:15→16:35)
[2019-05-12] MEDS: HEPARIN DRIP/D5W 100UNITS/ML 250 ML IV SCH (16:37)
--- NOTE | 2019-05-12 19:05 | NUR ---
CLOSING NOTE SHIFT REPORT GIVEN AND CARE ENDORSED TO SILVA PARIKH
--- NOTE | 2019-05-12 19:10 | NUR ---
OPENING NOTES ASSUMED CARE, LAYING ON BED WITH HER EYES CLOSED, STILL ON VENT AND SEDATION WITH VERSED AND FENTANYL, SEE SPREADSHEET FOR TITRATION, ON TPN AND AMIODARONE DRIP, SALAS CATHETER IN PLACE, ALL DRESSINGS INTACT, [place] BOOTS ON BOTH FEET. BED IN LOWEST POSITION WITH SIDE RAILS UP, BED ALARM ON. WILL CONTINUE CARE.
[2019-05-12] MEDS ORDERED: TPN PER PHARMACY IV NR ×9 (20:00)
--- NOTE | 2019-05-12 20:08 | NUR ---
SON AT BEDSIDE
--- NOTE | 2019-05-12 23:00 | NUR ---
OFF VERSED DRIP
[2019-05-13] VITALS (88 sets, daily range): BP systolic 104–180; BP diastolic 49–97
[2019-05-13] MEDS: ACETYLCYSTEINE 20%(200MG/ML) SOL 4ML NEB SCH ×3 (02:11→10:21)
[2019-05-13] MEDS: IPRATROPIUM BROM 0.5 MG/2.5ML INH SOL NEB SCH ×3 (02:11→10:21)
[2019-05-13] MEDS: ALBUTEROL SULF 2.5 MG/0.5ML(0.5%) NEB SOLN NEB SCH ×3 (02:11→10:21)
[2019-05-13 03:54] LABS: Basophils # (auto) 0.1 uL; Basophils % (auto) 0.4 % (0.0-2.0); Eosinophils # (auto) 0.3 uL; Eosinophils % (auto) 2.1 % (0.0-7.0); Hematocrit 29.4 % (36.0-46.0); Hemoglobin 9.6 g/dL (12.2-16.2); Lymphocytes # (auto) 2.3 uL; Lymphocytes % (auto) 16.1 % (10.0-50.0); Mean Corpuscular Hemoglobin 29.5 pg (28.0-32.0); Mean Corpuscular Hgb Conc. 32.7 g/dL (32.0-36.0); Mean Corpuscular Volume 90.4 fL (80.0-100.0); Monocytes # (auto) 0.7 uL; Monocytes % (auto) 4.8 % (0.0-12.0); Neutrophils # (auto) 10.9 uL; Neutrophils % (auto) 76.6 % (37.0-80.0); Nucleated Red Blood Cells % 0.1 %; Platelet Count (auto) 387 10^3/uL (140-450); Red Blood Cells 3.25 10^6/uL (4.0-5.20); White Blood Cell 14.3 10^3/uL (4.4-10.8)
--- NOTE | 2019-05-13 04:00 | NUR ---
APTT 53, NO BOLUS GIVEN AND NO CHANGE WAS DONE IN THE DRIP PER PROTOCOL.
[2019-05-13 04:08] LABS: INR 1.11 (0.9-1.15)
[2019-05-13 04:23] LABS: Potassium 4.1 mmol/L (3.5-5.1)
[2019-05-13 04:29] LABS: Albumin 1.2 g/dL (3.4-5.0); BUN/Creatinine Ratio 79.3; Bilirubin, Total 0.2 mg/dL (0.2-1.0); Calcium 8.2 mg/dL (8.5-10.1); Magnesium 2.2 mg/dL (1.6-2.6); Phosphorus 3.5 mg/dL (2.5-4.90); Total Protein 6.1 g/dL (6.4-8.2)
--- NOTE | 2019-05-13 04:30 | NUR ---
OFF FENTANYL DRIP, BP 137/60, HR 105, R 16, SPO2 97%. GRIMACING NOTED DURING PROCEDURE.
--- NOTE | 2019-05-13 04:45 | NUR ---
MORNING CARE DONE, PARTIAL LINEN CHANGE DONE.
[2019-05-13] MEDS: fentaNYL Drip 2500mCg/250mlNS 250 ML IV SCH (05:02)
--- NOTE | 2019-05-13 05:02 | NUR ---
FENTANYL RESUMED @ 50MCG/HR, PT NOTED TO BE RESTLESS, AND TACHYCARDIC, HR 110'S-120'S, R 20, BP 132/66, SPO2 96%.
[2019-05-13] MEDS: ACCU-CHEK COMFORT CURVE STRIP VI SCH ×2 (06:05→13:58)
[2019-05-13] MEDS: InsuLIN REG 1unit/0.01ml Soln (100units/ml) SC SCH (06:06)
--- NOTE | 2019-05-13 06:25 | NUR ---
LEVOPHED OFF, SBP 120'S - 150'S.
--- NOTE | 2019-05-13 07:05 | NUR ---
OPENING NOTE SHIFT REPORT GET BACK AND ASSUMED CARE OF PT FROM SILVA PARIKH
[2019-05-13] MEDS: MICAFUNGIN SODIUM 100 MG in SODIUM CHL 0.9% 100 ML IV SCH (09:51)
[2019-05-13] MEDS: SODIUM CHLOR 0.9% PF (SALINE LOCK) 10ML VIAL/SYR IV SCH (09:52)
[2019-05-13] MEDS: PANTOPRAZOLE 40 MG/10 ML VIAL INJ IV SCH (09:52)
[2019-05-13] MEDS: acetaZOLAMIDE SODIUM 500 MG VL IV SCH (09:53)
--- NOTE | 2019-05-13 11:17 | NUR ---
Nutrition Follow-up Notes Wt.: 90.7 kg Pt's in isolation room, intubated, sedated, remains NPO, currently on TPN @ 75 m/hr providing 1950 kcal, 90 gms pro, 1390 NPCs. Pt with adequate PN support d/t high initiation rate delivery of concentrated formula aeb current PN infusion meets 98% to 104% of est caloric needs, however meets 71% to 96% of est protein needs. Est. Needs ABW [id number] kcal (23-25 kcal/kgBW), 94-126 gms pro (1.2-1.6 gms/kgBW reassessed d/t severe hypoalbuminemia). Will continue to monitor pertinent labs and reassess nutrient need prn Labs: PREALB 11.7 H, GLU 136 H, BUN 73 H, CA 8.2 L, ALB 1.2 L Skin: Yasir scale 12, high risk, pt's multiple pressure area/wounds per pipe fitter supervisor. Pls refer to latest thread drawer's notes for further details re: tx plans. GI: Pt had 1 BM 04/30/19 per pipe fitter supervisor. PES: Increased nutrient needs r/t current medical condition aeb intubated sedated with order of NPO Altered nutrition related lab values r/t current/chronic medical condition aeb hyperglycemia, hyponatremia, hypokalemia, hyperchloremia, elev. BUN, Trop I, HbA1c, LFTs, hyperbilirubinemia, hypocalcemia and mod hypoalbuminemia Will continue to monitor NPO status, PN tolerance, pertinent labs, skin status and weight trends. F/u in 2 to 3 days. Additional Recommendation: 1.) If remains NPO with PN support consider gradual increase on protein that meet at least 75% of est nutrient needs. 2.) Advance gradually to oral diet (per ST's diet texture recommendation) or consider EN support if medically appropriate. 3.) Refer to RD for further nutrition educ. and weight monitoring upon discharge. 4.) Continue current plan of care.
--- NOTE | 2019-05-13 11:30 | NUR ---
FAMILY NOT IN AGREEMENT WITH PT'S SPOUSES REQUEST FOR EXTUBATION WITHOUT COMFORT MEASURES. SPOKE WITH PT'S SPOUSE. STATES HE WOULD LIKE COMFORT MEASURES AND WE WILL HAVE MEDICATIONS FOR COMFORT, PAIN, AND ANXIETY WITH EXTUBATION. DR. ECKERT ALSO AT BEDSIDE AND SPOKE WITH FAMILY. ORDERS RECEIVED.
--- NOTE | 2019-05-13 12:00 | NUR ---
COOLING MEASURES INITIATED FOR TEMP OF 99.3
--- NOTE | 2019-05-13 12:00 | NUR ---
PT CLEANED WITH WIPES AND CATHETER CARE DONE. PARTIAL LINEN CHANGE. NO BM AT THIS TIME. WILL CONTINUE TO MONITOR.
[2019-05-13] MEDS ORDERED: SODIUM BICARBONATE 8.4 % INJ 50ML VIAL IV ONE (12:45)
[2019-05-13] MEDS ORDERED: fentaNYL CITRATE 100 MCG/2 ML VL IV ONE (13:00)
[2019-05-13] MEDS ORDERED: HYOSCYAMINE SULF 0.125 MG ODT TAB PO PRN (13:30)
[2019-05-13] MEDS ORDERED: fentaNYL 75MCG/HR 75 MCG/HR PAT TD SCH (13:30)
[2019-05-13] MEDS ORDERED: LORazepam 2MG/ML-1ML VIAL IV PRN (13:30)
--- NOTE | 2019-05-13 14:10 | NUR ---
FAMILY AND RT AT BEDSIDE FOR EXTUBATION WITH COMFORT MEASURES WILL CONTINUE TO MONITOR
--- NOTE | 2019-05-13 14:10 | NUR ---
TERMINAL EXTUBATED PT AT APPROXIMATELY 1410, GRAND DAUGHTER AT BEDSIDE REQUESTED FOR PT TO BE ON NC INSTEAD OF SIMPLE MASK. PT PLACED ON 3L NC WITH SPO2 94%, HR 110, RR 30'S WITH COARSE CRACKLES BS NOTED. PT WAS ORALLY SX WITH SMALL RETURN. WILL CONTINUE TO MONITOR PT.
[2019-05-13] MEDS ORDERED: MORPHINE SULFATE INJECTION 1 ML ONE (14:54)
[2019-05-13] MEDS ORDERED: MORPHINE SULFATE 10 MG/ML INJ 1ML SDV IV PRN (15:00)
[2019-05-13] MEDS ORDERED: fentaNYL CITRATE 100 MCG/2 ML VL IV PRN (15:00)
[2019-05-13] MEDS ORDERED: MORPHINE SULFATE 100 MG in D5W 5% 90 ML IV SCH (15:35)
--- NOTE | 2019-05-13 16:25 | NUR ---
FAMILY NOW STATES THEY WOULD LIKE TO CONTINUE PREVIOUS CARE WITH DRIPS AND TPN. WILL CONTACT DR. SHORE
--- NOTE | 2019-05-13 16:30 | NUR ---
DR. SHORE CALLED REGARDING FAMILY'S DECISION TO POSSIBLY RESUME CARE AND WITHHOLD COMFORT MEASURES. WILL FOLLOW THE REQUEST OF THE FAMILY'S DECISION
--- NOTE | 2019-05-13 17:30 | NUR ---
PT'S FAMILY HAVING AN ARGUMENT ABOUT THE DECISIONS FOR PT'S CARE. WILL STANDBY FOR RESOLUTION OF PT'S WISHES
--- NOTE | 2019-05-13 18:00 | NUR ---
FAMILY WOULD LIKE TO CONTINUE COMFORT MEASURES WITH MORPHINE DRIP AND THAT IS ALL THE CARE THAT THEY WISH TO CONTINUE. WE WILL KEEP THE PATIENT COMFORTABLE.
[2019-05-13] MEDS: MORPHINE SULFATE 100 MG in D5W 5% 90 ML IV SCH (18:08)
--- NOTE | 2019-05-13 18:08 | NUR ---
MORPHINE DRIP INITIATED FOR COMFORT MEASURE-NOT FOR SEDATION PER EMAR. MORPHINE DRIP IS FOR COMFORT AND PAIN RELIEF. PT CONTINUES TO EXHIBIT WITH INCREASED RESPIRATORY RATE, ELEVATED BP, TACHYCARDIA, AND FACIAL GRIMACING. WILL TITRATE TO KEEP PT COMFORTABLE
--- NOTE | 2019-05-13 19:10 | NUR ---
CLOSING NOTE SHIFT REPORT GIVEN AND CARE ENDORSED TO JOHNY PARIKH
[2019-05-13] MEDS ORDERED: SODIUM ACETATE IV NR ×9 (20:00)
[2019-05-13] MEDS ORDERED: POTASSIUM CHLORIDE IV NR ×9 (20:00)
[2019-05-13] MEDS ORDERED: [UNRECOGNIZED DRUG - OTHER] IV NR ×9 (20:00)
[2019-05-13] MEDS ORDERED: TPN PER PHARMACY IV NR ×9 (20:00)
[2019-05-13] MEDS ORDERED: FAT EMULSION IV NR ×9 (20:00)
--- NOTE | 2019-05-13 20:00 | NUR ---
ADMITTED WITH MULTIPLE SKIN WOUNDS. SKIN FOLDS UNDER HER BREASTS, PANUS AND GROIN ARE HEALING. RIGHT HEEL WOUND IS DARK WITH SOME DUSKY RED AREAS, NO DRNG. LEFT LOWER LEG HAS 2 OPEN WOUNDS WITH A FOAM DRESSING TO COVER. BOTH HAVE A SMALL AMOUNT OF SEROUS FLUID DRNG. RIGHT INNER THIGH IS A QUARTER SIZE WOUND WITH THE TOP SKIN REMOVED. IT HAS A SMALL AMOUNT OF SEROUS DRNG. PATIENT WAS MADE A DNR TODAY BY FAMILY. FORM IS SIGNED. EXTUBATED AT 1415. CURRENTLY HAS A NORMAL TEMP OF 98.2. ATRIAL FIB RATE RANGE 112-135. NO PACED BEATS. B/P SYSTOLIC IS 135-155. TURNED THE PATIENT TO HER BACK. SHE MOANED. ORAL CARE, SHE GRIMACED AND TRIED TO PREVENT ME FROM ENTERING HER MOUTH. NO MOVEMENT OF THE ARMS OR LEGS. LUNGS CLEAR. ORAL CARE DONE. FELICITY. IV ACCESS: RIJ TLC AND A RIGHT UPPER ARM PICC LINE. FENTANYL PATCH ON HER RIGHT UPPER ARM. MORPHINE DRIP AT 5MG/HR. INCREASED THE DRIP TO 6MG/HR. HER FACE HAD GRIMACING FOREHEAD FOLDS. MORPHINE IS BEING USED FOR COMFORT CARE. SALAS IN PLACE. CLEAR YELLOW LIQUID IN DOWN DRAIN BAG. NO BM. FOLDS IN PANUS AND GROIN WERE MOIST. CLOTH PLACED IN FOLDS. FAMILY IN ROOM. THEY SEEM RESOLVED TO THE EFFORTS THEY HAVE MADE TO GIVE HER A CHANCE AT LIFE.
--- NOTE | 2019-05-13 22:00 | NUR ---
PATIENTS BROWS ARE RAISED. JUST TOUCH HER AND SHE GRIMACES. INCREASED THE MORPHINE DRIP FOR COMFORT. LUNGS CLEAR. ORAL CARE. REPOSITIONED TO HER RIGHT SIDE. FOAM BOOTS ON. NO CHANGE IN WOUNDS. FLUSHED ALL THE PORTS OF THE TRIPLE LUMEN RIJ AND THE RIGHT UPPER ARM PICC LINE. FAMILY IN ROOM. ATRIAL FIB VARYING RATE 110-143. SBP 146. RR 25. O2 SAT 95%.
[2019-05-14] VITALS (26 sets, daily range): BP systolic 84–160; BP diastolic 35–85
--- NOTE | 2019-05-14 | NUR ---
REPOSITIONED. ORAL CARE DONE. LESS PAIN WHEN I TURN HER. HR 115-137. ATRIAL FIB. NO PACED BEATS. RR NOW 26-29. O2 SAT DOWN TO 89%. NO CHANGE IN WOUNDS. ADEQUATE URINE OUTPUT. URINE IS YELLOW WITH SEDIMENT
[2019-05-14] MEDS ORDERED: MORPHINE SULFATE ONE (00:56)
[2019-05-14] MEDS: MORPHINE SULFATE 100 MG in D5W 5% 90 ML IV SCH ×2 (02:00→11:50)
--- NOTE | 2019-05-14 02:00 | NUR ---
TURNED PATIENT TO HER SIDE. PATIENT OPENED HER EYES. NO MOVEMENT OF THE EXTREMITIES. O2 SATS 89%. ATRIAL FIB 115-130. NO PACED BEATS. SBP 140S.
--- NOTE | 2019-05-14 04:00 | NUR ---
O2 SAT 79% , THEN I TURNED HER, WOKE HER UP AND IT WENT UP TO 81%. CHG BATH GIVEN. INNER THIGH WOUNDS BILATERALLY DRAIN SEROUS FLUID. BOTH DRESSINGS WERE CHANGED. COMPLETE LINEN CHANGE. DALLAS CARE. PATIENT IS DIAPHORETIC. NO FEVER. LUNGS COARSE. OTHER VITAL SIGNS REMAIN STABLE. NO BM. D[place]AS CARE. CANCELED AM LABS. ATRIAL FIB RATE 105-125.
--- NOTE | 2019-05-14 05:35 | NUR ---
HAVE BROUGHT DOWN THE MORPHINE TO 7 MG /HR . O2 SAT HAS STOPPED DROPPING. HR , SBP AND RR STABLE.
--- NOTE | 2019-05-14 06:53 | NUR ---
CALLED TO LET HIM KNOW THAT THE VITAL SIGNS HAVE DROPPED 20 POINTS AND THAT THINGS ARE BEGINNING TO DECLINE.
--- NOTE | 2019-05-14 12:23 | NUR ---
All patient info faxed to [facility]. Addendum: 05/14/19 at 1436 by Noreen Fagan RN error - wrong chart
--- NOTE | 2019-05-14 12:32 | NUR ---
All patient info faxed to [facility]. Addendum: 05/14/19 at 1247 mary Fagan RN Transcript received of successful fax. Addendum: 05/14/19 at 1436 mary Fagan RN error - wrong chart
--- NOTE | 2019-05-14 12:43 | NUR ---
Merle from [facility] phoned - states received all needed patient info and will start facilitating transfer to [facility]. Addendum: 05/14/19 at 1436 by Noreen Fagan RN error-wrong chart
--- NOTE | 2019-05-14 14:30 | NUR ---
Patient without respirations, heart rate or BP. Patient's at bedside. Call placed to hospitalist - returns call - states will pronounce. Dr. Tammy Hong notified of patient's . Call placed to Super[facility] [employer].
--- NOTE | 2019-05-14 14:45 | NUR ---
Patient's family at bedside - support offered. Awaiting return call from Filler Spreader.
--- NOTE | 2019-05-14 16:45 | NUR ---
Placed another call to [facility].
--- NOTE | 2019-05-14 16:58 | NUR ---
Release of Body form signed per patient's husbands - states he does not have mortuary set up but that he plans to use a mortuary in [place]. Corporate Affairs Manager informed patient's that she would be taken to [facility] and held until mortuary arrangement are made - given mortuary information - he and family members voiced understanding. Addendum: 05/14/19 at 1755 by Noreen Fagan RN Patient's housecoat given to family.
--- NOTE | 2019-05-14 17:50 | NUR ---
[facility] returns call - clears patient for release to mortuary.
--- NOTE | 2019-05-14 18:35 | NUR ---
Phoned patient's son - informed him of patient expiring - states his daughter had already informed him, offered to have him come to the hospital to patient - declined.
--- NOTE | 2019-05-14 18:50 | NUR ---
[employer] notified of need to cook pickled meat patient - all information given.
--- NOTE | 2019-05-14 20:10 | NUR ---
PATIENT LEFT THE UNIT ON A GURNEY WITH AFFORDABLE. FORMS SIGNED. LEFT WITH 2 SECURITY GUARDS.
== END 2019-05-14 21:54 | disposition expired | DRG 870 ==
LOC: ER 15:01 → EDBD 15:01 → TELE 15:02 → DOU IN ICU 19:35 → ICU WEST 22:11
PROVIDERS: ADMIT Specialist; ATTEND Specialist
PROC: 5A1955Z Respiratory Ventilation, Greater than 96 Consecutive Hours (ICD-10-PCS; principal; 2019-04-22)
PROC: 0BH17EZ Insertion of Endotracheal Airway into Trachea, Via Natural or Artificial Opening (ICD-10-PCS; 2019-04-22)
PROC: 0D9670Z Drainage of Stomach with Drainage Device, Via Natural or Artificial Opening (ICD-10-PCS; 2019-04-22)
PROC: 0DJ08ZZ Inspection of Upper Intestinal Tract, Via Natural or Artificial Opening Endoscopic (ICD-10-PCS; 2019-04-27)
PROC: 0W993ZZ Drainage of Right Pleural Cavity, Percutaneous Approach (ICD-10-PCS; 2019-05-01)
PROC: 02HV33Z Insertion of Infusion Device into Superior Vena Cava, Percutaneous Approach (ICD-10-PCS; 2019-05-01)
PROC: 0W993ZZ Drainage of Right Pleural Cavity, Percutaneous Approach (ICD-10-PCS; 2019-05-04)
PROC: 30233N1 Transfusion of Nonautologous Red Blood Cells into Peripheral Vein, Percutaneous Approach (ICD-10-PCS; 2019-05-10)
PROC: 02HV33Z Insertion of Infusion Device into Superior Vena Cava, Percutaneous Approach (ICD-10-PCS; 2019-05-11)
DX: A41.9 Sepsis, unspecified organism (principal); I50.33 Acute on chronic diastolic (congestive) heart failure; K25.4 Chronic or unspecified gastric ulcer with hemorrhage; J96.21 Acute and chronic respiratory failure with hypoxia; R65.21 Severe sepsis with septic shock; J18.9 Pneumonia, unspecified organism; K56.7 Ileus, unspecified; N17.9 Acute kidney failure, unspecified; N39.0 Urinary tract infection, site not specified; E44.0 Moderate protein-calorie malnutrition; Z16.24 Resistance to multiple antibiotics; Z16.21 Resistance to vancomycin; L89.152 Pressure ulcer of sacral region, stage 2; Z66 Do not resuscitate; E66.9 Obesity, unspecified; R62.7 Adult failure to thrive; I48.91 Unspecified atrial fibrillation; K20.9 Esophagitis, unspecified; L89.610 Pressure ulcer of right heel, unstageable; L89.140 Pressure ulcer of left lower back, unstageable; L89.511 Pressure ulcer of right ankle, stage 1; K44.9 Diaphragmatic hernia without obstruction or gangrene; F03.90 Unspecified dementia, unspecified severity, without behavioral disturbance, psychotic disturbance, mood disturbance, and anxiety; I11.0 Hypertensive heart disease with heart failure; Z51.5 Encounter for palliative care; L89.90 Pressure ulcer of unspecified site, unspecified stage; Z68.33 Body mass index [BMI] 33.0-33.9, adult; Z74.01 Bed confinement status; Z95.0 Presence of cardiac pacemaker; Z86.718 Personal history of other venous thrombosis and embolism; Z87.11 Personal history of peptic ulcer disease; Z87.19 Personal history of other diseases of the digestive system; Z88.0 Allergy status to penicillin; Z88.5 Allergy status to narcotic agent; Z68.30 Body mass index [BMI] 30.0-30.9, adult
CPT/HCPCS: 10022; 32555; 36415; 36569; 36600; 43235; 70450; 71045; 71250; 74018; 74021; 74176; 76604; 76881; 76942; 80048; 80053; 81001; 82040; 82805; 82962; 83605; 83735; 83880; 83986; 84100; 84443; 84478; 84484; 85007; 85014; 85018; 85025; 85027; 85610; 85730; 86850; 86900; 86901; 86920; 87040; 87070; 87077; 87081; 87086; 87088; 87186; 87205; 89051; 93005; 93971; 94002; 94003; 94640; A4565; A4618; C9113; G0378; J0330; J0696; J0714; J1450; J1815; J2185; J2248; J2250; J2270; J2704; J3480; J3490; J7060; J7131